=== PATIENT | female | born 1955 | race American Indian/Alaskan Native ===

== ENCOUNTER 2018-06-08 07:32 | Inpatient (IN) | payer MEDICARE ==
[2018-06-08] MEDS ORDERED: ASPIRIN PO ONE (07:50)
[2018-06-08 08:14] LABS: Basophils # (Auto) 0.1 K/mm3 (0.0-0.1); Basophils % (Auto) 0.8 % (0.0-1.8); Eosinophils # (Auto) 0.2 K/mm3 (0.0-0.4); Eosinophils % (Auto) 2.1 % (0.0-4.3); Hematocrit 29.2 % (30.3-42.9); Hemoglobin 9.2 gm/dl (10.1-14.3); Lymphocytes # (Auto) 2.9 K/mm3 (1.2-5.4); Lymphocytes % (Auto) 34.3 % (13.4-35.0); Mean Corpuscular HGB Conc 31 % (30-34); Mean Corpuscular Volume 77 fl (79-97); Monocytes # (Auto) 0.6 K/mm3 (0.0-0.8); Monocytes % (Auto) 6.6 % (0.0-7.3); Platelet Count 310 K/mm3 (140-440); Red Blood Count 3.78 M/mm3 (3.65-5.03); Red Cell Distribution Width 17.7 % (13.2-15.2)
[2018-06-08 08:30] LABS: BUN/Creatinine Ratio 22; Blood Urea Nitrogen 22 mg/dL (7-17); Calcium 9.1 mg/dL (8.4-10.2); Hemolysis Index 8
--- NOTE | 2018-06-08 09:00 | XRay Report ---
PROCEDURE: XR CHEST ROUTINE 2V TECHNIQUE: Chest, 2 views HISTORY: Chest Pain COMPARISON: None FINDINGS: There is moderate to marked cardiomegaly. There is no vascular congestion. There is some airspace disease in right lower lobe. There is no pleural effusion seen. There is no pneumothorax seen. IMPRESSION: Moderate to marked cardiomegaly. Right lower lobe infiltrate suspected. This document is electronically signed by Reina Garcia MD., June 08 2018 08:57:59 AM ET
--- NOTE | 2018-06-08 11:01 | Emergency Department Report ---
ED Chest Pain HPI - General Chief Complaint: Chest Pain Stated Complaint: CHEST PAIN/SOB Time Seen by Provider: 06/08/18 10:49 Source: patient Mode of arrival: Ambulatory Limitations: No Limitations - History of Present Illness Initial Comments: This is a 63-year-old female states she was admitted to every in April with a diagnosis of congestive heart failure. She states that she is taking lisinopril furosemide and carvedilol and that she has not run out of her medication. She states that she had intermittent tightness in her chest overnight. She also had episodes of apparent PND causing her to sit up in bed. She is recently noted her legs to be edematous. She states this is the first time that that has happened. She had a stress test at [facility] but denies a heart catheterization. MD Complaint: chest pain -: Gradual, hour(s) Onset: during exertion Pain Location: substernal, left chest Pain Radiation: back (somewhat to back) Severity: moderate Quality: pressure Consistency: intermittent, now resolved Improves With: nothing Worsens With: nothing Context: other (history of apparent cardiomyopathy) re: dyspnea Other Symptoms: denies: cough, fever, syncope Treatments Prior to Arrival: none Aspirin use within the Past 7 Days: (0) No - Related Data On Oral Contraceptives: No Allergies Allergy/AdvReac Type Severity Reaction Status Date / Time No Known Allergies Allergy Unverified 06/08/18 07:43 Heart Score - HEART Score History: Moderately suspicious EKG: Non-specific Age: 45-65 Risk factors: 1-2 risk factors Troponin: < normal limit HEART Score: 4 - Critical Actions Critical Actions: 4-6 pts:12-16.6% risk of adverse cardiac event. Should be admitted ED Review of Systems ROS: Stated complaint: CHEST PAIN/SOB Other details as noted in HPI Constitutional: denies: chills, fever Eyes: denies: eye pain, eye discharge, vision change ENT: denies: ear pain, throat pain Respiratory: shortness of breath. denies: cough, wheezing Cardiovascular: chest pain. denies: palpitations Endocrine: no symptoms reported Gastrointestinal: denies: abdominal pain, nausea, diarrhea Genitourinary: denies: urgency, dysuria, discharge Musculoskeletal: denies: back pain, joint swelling, arthralgia Skin: denies: rash, lesions Neurological: denies: headache, weakness, paresthesias Psychiatric: denies: anxiety, depression Hematological/Lymphatic: denies: easy bleeding, easy bruising ED Past Medical Hx - Past Medical History Previous Medical History?: Yes Hx Hypertension: Yes Hx Congestive Heart Failure: Yes - Surgical History Past Surgical History?: No - Social History Substance Use Type: None ED Physical Exam - General Limitations: No Limitations General appearance: alert, in no apparent distress, obese - Head Head exam: Present: atraumatic, normocephalic - Eye Eye exam: Present: normal appearance - ENT ENT exam: Present: mucous membranes moist - Neck Neck exam: Present: normal inspection. Absent: tenderness, meningismus - Respiratory Respiratory exam: Present: decreased breath sounds (somewhat decreased b ilaterally). Absent: respiratory distress - Cardiovascular Cardiovascular Exam: Present: regular rate, normal rhythm, S3, S4. Absent: systolic murmur, diastolic murmur, rubs, gallop - GI/Abdominal GI/Abdominal exam: Present: soft, normal bowel sounds. Absent: distended, tenderness, guarding, rebound, rigid - Extremities Exam Extremities exam: Present: pedal edema, other (physical edema) - Back Exam Back exam: Present: normal inspection - Neurological Exam Neurological exam: Present: alert, oriented X3, CN II-XII intact. Absent: motor sensory deficit - Psychiatric Psychiatric exam: Present: normal affect, normal mood - Skin Skin exam: Present: warm, dry, intact, normal color. Absent: rash ED Course Vital Signs 06/08/18 06/08/18 07:43 11:30 Temperature 98.0 F 98.5 F Pulse Rate 90 97 H Respiratory 18 18 Rate Blood Pressure 136/105 Blood Pressure 136/86 [Left] O2 Sat by Pulse 95 97 Oximetry - Reevaluation(s) Reevaluation #1: Discussed with Dr. Ryan. Patient is admitted to telemetry in stable condition. 06/08/18 12:53 DELORES score - Delores Score Age > 65: (0) No Aspirin use within the Past 7 Days: (0) No 3 or more CAD Risk Factors: (1) Yes 2 or more Angina events in past 24 hrs: (0) No Known CAD with more than 50% Stenosis: (0) No Elevated Cardiac Markers: (0) No ST Deviation Greater than 0.5mm: (0) No DELORES Score: 1 ED Medical Decision Making - Lab Data Result diagrams: 06/08/18 08:01 06/08/18 07:58 Laboratory Results - last 24 hr 06/08/18 06/08/18 07:58 08:01 WBC 8.4 RBC 3.78 Hgb 9.2 L Hct 29.2 L MCV 77 L MCH 24 L MCHC 31 RDW 17.7 H Plt Count 310 Lymph % (Auto) 34.3 White % (Auto) 6.6 Eos % (Auto) 2.1 Baso % (Auto) 0.8 Lymph # 2.9 White # 0.6 Eos # 0.2 Baso # 0.1 Seg Neutrophils % 56.2 Seg Neutrophils # 4.7 Sodium 142 Potassium 3.7 Chloride 104.7 Carbon Dioxide 28 Anion Gap 13 BUN 22 H Creatinine 1.0 Estimated GFR 56 BUN/Creatinine Ratio 22 Glucose 124 H Calcium 9.1 Troponin T < 0.010 - EKG Data -: EKG Interpreted by Me EKG shows normal: sinus rhythm, axis, intervals, QRS complexes, ST-T waves Rate: normal - EKG Data Interpretation: LVH (consistent with LVH and associated repolarization abnormality) - Radiology Data Radiology results: report reviewed (radiologist as suggesting right lower lobe pneumonia.) interpreted by me: Cardiomegaly. Patient does have an infiltrate in the right lower lobe but not convinced that it is just not asymmetrical pulmonary edema Critical care attestation.: If time is entered above; I have spent that time in minutes in the direct care of this critically ill patient, excluding procedure time. ED Disposition Clinical Impression: Chest pain Qualifiers: Chest pain type: unspecified Qualified Code(s): R07.9 - Chest pain, unspecified CHF exacerbation Qualifiers: Heart failure type: combined systolic and diastolic Qualified Code(s): I50.43 - Acute on chronic combined systolic (congestive) and diastolic (congestive) heart failure Disposition: - TO HOME OR SELFCARE Is pt being admited?: Yes Does the pt Need Aspirin: Yes Condition: Stable Instructions: Chest Pain (ED) Referrals: PRIMARY CARE, [Primary Care Provider] - 3-5 Days Time of Disposition: 12:55
[2018-06-08 11:27] LABS: INR 1.07 (0.87-1.13); Partial Thromboplastin Time 21.6 Sec. (24.2-36.6)
[2018-06-08] MEDS ORDERED: LASIX IV ONE (11:49)
[2018-06-08] MEDS ORDERED: ROCEPHIN/NS 1 GM/50 ML 1 GM/50 ML BAG IV ONE (11:49)
[2018-06-08] MEDS ORDERED: LEVAQUIN 750MG/150ML 750 MG/150 ML BAG IV ONE (11:49)
[2018-06-08 11:51] LABS: Creatine Kinase MB 4.8 ng/mL (0.0-4.0)
[2018-06-08 11:53] LABS: Alanine Aminotransferase 35 units/L (7-56); Albumin 3.6 g/dL (3.9-5)
[2018-06-08 11:56] LABS: Bilirubin,Direct < 0.2 mg/dL (0-0.2)
[2018-06-08] MEDS ORDERED: NITRO-BID 2% TP ONE (12:55)
[2018-06-08 13:50] LABS: Bacteria,Urine 1+ /HPF (Negative); Bilirubin,Urine NEG (Negative); Blood,Urine NEG (Negative); Color,Urine Yellow (Yellow); Mucus,Urine FEW /HPF; Urobilinogen,Urine < 2.0 mg/dL (<2.0)
[2018-06-08] MEDS ORDERED: ASPIRIN ONE (16:09)
--- NOTE | 2018-06-08 17:33 | History and Physical Report ---
History of Present Illness Date of examination: 06/08/18 Date of admission: 06/08/18 13:06 Chief complaint: CHEST PAIN SINCE LAST NIGHT History of present illness: 63-year-old female presents with intermittent tightness in her chest overnight. She also had episodes of apparent PND causing her to sit up in bed. She is recently noted her legs to be edematous. She states this is the first time that that has happened. She had a stress test at [facility] but denies a heart catheterization.Does not know the results of her stress marcelle.Also has orthopnea.Has to sleep with 2 pillows. Past Medical History Previous Medical History?: Yes Hx Hypertension: Yes Hx Congestive Heart Failure: Yes Surgical History Past Surgical History?: No Social History Substance Use Type: None Family History Htn Review of Systems ROS: Stated complaint: CHEST PAIN/SOB Other details as noted in HPI Constitutional: denies: chills, fever Eyes: denies: eye pain, eye discharge, vision change ENT: denies: ear pain, throat pain Respiratory: shortness of breath. denies: cough, wheezing Cardiovascular: chest pain. denies: palpitations Endocrine: no symptoms reported Gastrointestinal: denies: abdominal pain, nausea, diarrhea Genitourinary: denies: urgency, dysuria, discharge Musculoskeletal: denies: back pain, joint swelling, arthralgia Skin: denies: rash, lesions Neurological: denies: headache, weakness, paresthesias Psychiatric: denies: anxiety, depression Hematological/Lymphatic: denies: easy bleeding, easy bruising Medications and Allergies Allergies Allergy/AdvReac Type Severity Reaction Status Date / Time No Known Allergies Allergy Unverified 06/08/18 07:43 Exam - Constitutional Vitals: Temp Pulse Resp BP Pulse Ox 97.5 F L 97 H 21 138/96 96 06/08/18 16:21 06/08/18 16:21 06/08/18 16:21 06/08/18 16:21 06/08/18 16:21 General appearance: Present: no acute distress, mild distress, well-nourished - EENT Eyes: Present: PERRL ENT: hearing intact, clear oral mucosa - Neck Neck: Present: supple, normal ROM - Respiratory Respiratory effort: normal Respiratory: bilateral: CTA - Cardiovascular Heart rate: 94 Rhythm: regular Heart Sounds: Present: S1 & S2. Absent: rub, click - Extremities Extremities: no ischemia, pulses intact, pulses symmetrical, No edema Extremity abnormal: edema (1 plus) Peripheral Pulses: within normal limits - Abdominal General gastrointestinal: Present: soft, non-tender, non-distended, normal bowel sounds Female genitourinary: Present: normal - Rectal Rectal Exam: deferred - Integumentary Integumentary: Present: clear, warm, dry - Musculoskeletal Musculoskeletal: gait normal, strength equal bilaterally - Psychiatric Psychiatric: appropriate mood/affect, intact judgment & insight - Neurologic Neurologic: CNII-XII intact, moves all extremities - Allied Health Allied health notes reviewed: nursing, case management Results - Labs CBC & Chem 7: 06/08/18 08:01 06/08/18 07:58 Labs: Laboratory Last Values WBC 8.4 K/mm3 (4.5-11.0) 06/08/18 08:01 RBC 3.78 M/mm3 (3.65-5.03) 06/08/18 08:01 Hgb 9.2 gm/dl (10.1-14.3) L 06/08/18 08:01 Hct 29.2 % (30.3-42.9) L 06/08/18 08:01 MCV 77 fl (79-97) L 06/08/18 08:01 MCH 24 pg (28-32) L 06/08/18 08:01 MCHC 31 % (30-34) 06/08/18 08:01 RDW 17.7 % (13.2-15.2) H 06/08/18 08:01 Plt Count 310 K/mm3 (140-440) 06/08/18 08:01 Lymph % (Auto) 34.3 % (13.4-35.0) 06/08/18 08:01 [place] % (Auto) 6.6 % (0.0-7.3) 06/08/18 08:01 Eos % (Auto) 2.1 % (0.0-4.3) 06/08/18 08:01 Baso % (Auto) 0.8 % (0.0-1.8) 06/08/18 08:01 Lymph # 2.9 K/mm3 (1.2-5.4) 06/08/18 08:01 [place] # 0.6 K/mm3 (0.0-0.8) 06/08/18 08:01 Eos # 0.2 K/mm3 (0.0-0.4) 06/08/18 08:01 Baso # 0.1 K/mm3 (0.0-0.1) 06/08/18 08:01 Seg Neutrophils % 56.2 % (40.0-70.0) 06/08/18 08:01 Seg Neutrophils # 4.7 K/mm3 (1.8-7.7) 06/08/18 08:01 PT 14.6 Sec. (12.2-14.9) 06/08/18 10:56 INR 1.07 (0.87-1.13) 06/08/18 10:56 APTT 21.6 Sec. (24.2-36.6) L 06/08/18 10:56 D-Dimer 318.58 ng/mlDDU (0-234) H 06/08/18 10:56 Sodium 142 mmol/L (137-145) 06/08/18 07:58 Potassium 3.7 mmol/L (3.6-5.0) 06/08/18 07:58 Chloride 104.7 mmol/L (98-107) 06/08/18 07:58 Carbon Dioxide 28 mmol/L (22-30) 06/08/18 07:58 Anion Gap 13 mmol/L 06/08/18 07:58 BUN 22 mg/dL (7-17) H 06/08/18 07:58 Creatinine 1.0 mg/dL (0.7-1.2) 06/08/18 07:58 Estimated GFR 56 ml/min 06/08/18 07:58 BUN/Creatinine Ratio 22 % 06/08/18 07:58 Glucose 124 mg/dL (65-100) H 06/08/18 07:58 Lactic Acid 0.70 mmol/L (0.7-2.0) 06/08/18 12:14 Calcium 9.1 mg/dL (8.4-10.2) 06/08/18 07:58 Total Bilirubin 0.40 mg/dL (0.1-1.2) 06/08/18 10:56 Direct Bilirubin < 0.2 mg/dL (0-0.2) 06/08/18 10:56 Indirect Bilirubin 0.2 mg/dL 06/08/18 10:56 AST 40 units/L (5-40) 06/08/18 10:56 ALT 35 units/L (7-56) 06/08/18 10:56 Alkaline Phosphatase 50 units/L (35-129) 06/08/18 10:56 Total Creatine Kinase 224 units/L (30-135) H 06/08/18 10:56 CK-MB (CK-2) 4.8 ng/mL (0.0-4.0) H 06/08/18 10:56 CK-MB (CK-2) Rel Index 2.1 (0-4) 06/08/18 10:56 Troponin T < 0.010 ng/mL (0.00-0.029) 06/08/18 10:56 NT-Pro-B Natriuret Pep 2634 pg/mL (0-900) H 06/08/18 10:56 Total Protein 6.9 g/dL (6.3-8.2) 06/08/18 10:56 Albumin 3.6 g/dL (3.9-5) L 06/08/18 10:56 Albumin/Globulin Ratio 1.1 % 06/08/18 10:56 Urine Color Yellow (Yellow) 06/08/18 13:10 Urine Turbidity Clear (Clear) 06/08/18 13:10 Urine pH 6.0 (5.0-7.0) 06/08/18 13:10 Ur Specific [place] 1.012 (1.003-1.030) 06/08/18 13:10 Urine Protein 30 mg/dl mg/dL (Negative) 06/08/18 13:10 Urine Glucose (UA) Neg mg/dL (Negative) 06/08/18 13:10 Urine Ketones Neg mg/dL (Negative) 06/08/18 13:10 Urine Blood Neg (Negative) 06/08/18 13:10 Urine Nitrite Neg (Negative) 06/08/18 13:10 Urine Bilirubin Neg (Negative) 06/08/18 13:10 Urine Urobilinogen < 2.0 mg/dL (<2.0) 06/08/18 13:10 Ur Leukocyte Esterase Sm (Negative) 06/08/18 13:10 Urine WBC (Auto) 7.0 /HPF (0.0-6.0) H 06/08/18 13:10 Urine RBC (Auto) 4.0 /HPF (0.0-6.0) 06/08/18 13:10 U Epithel Cells (Auto) 1.0 /HPF (0-13.0) 06/08/18 13:10 Urine Bacteria (Auto) 1+ /HPF (Negative) 06/08/18 13:10 Urine Mucus Few /HPF 06/08/18 13:10 Urine Yeast (Budding) 1+ /HPF 06/08/18 13:10 Short CBC 06/08/18 Range/Units 08:01 WBC 8.4 (4.5-11.0) K/mm3 Hgb 9.2 L (10.1-14.3) gm/dl Hct 29.2 L (30.3-42.9) % Plt Count 310 (140-440) K/mm3 BMP 06/08/18 07:58 Sodium 142 Potassium 3.7 Chloride 104.7 Carbon Dioxide 28 BUN 22 H Creatinine 1.0 Glucose 124 H Calcium 9.1 Cardiac Enzymes 06/08/18 06/08/18 Range/Units 07:58 10:56 Total Creatine Kinase 224 H (30-135) units/L CK-MB (CK-2) 4.8 H (0.0-4.0) ng/mL Troponin T < 0.010 < 0.010 (0.00-0.029) ng/mL Liver Function 06/08/18 Range/Units 10:56 Total Bilirubin 0.40 (0.1-1.2) mg/dL Direct Bilirubin < 0.2 (0-0.2) mg/dL AST 40 (5-40) units/L ALT 35 (7-56) units/L Alkaline Phosphatase 50 (35-129) units/L Albumin 3.6 L (3.9-5) g/dL Urine 06/08/18 Range/Units 13:10 Urine Color Yellow (Yellow) Urine pH 6.0 (5.0-7.0) Ur Specific [place] 1.012 (1.003-1.030) Urine Protein 30 mg/dl (Negative) mg/dL Urine Glucose (UA) Neg (Negative) mg/dL - Imaging and Cardiology EKG: report reviewed (NSR 94/min No acute ST/T wave changes) Chest x-ray: report reviewed Imaging and Cardiology: CXR IMPRESSION: Moderate to marked cardiomegaly. Right lower lobe infiltrate suspected. Assessment and Plan Advance Directives: Yes (Full code) VTE prophylaxis?: Chemical Plan of care discussed with patient/family: Yes - Patient Problems (1) CHF exacerbation Current Visit: Yes Status: Acute Qualifiers: Heart failure type: combined systolic and diastolic Qualified Code(s): I50.43 - Acute on chronic combined systolic (congestive) and diastolic (congesti ve) heart failure Plan to address problem: IV Lasis ECHO for EF/Valve function Daily weights I/o (2) Chest pain Current Visit: Yes Status: Acute Qualifiers: Chest pain type: unspecified Qualified Code(s): R07.9 - Chest pain, unspecified Plan to address problem: Chest pain protocol Serial Troponins Lexiscan on Sunday morning (3) Pneumonia Current Visit: Yes Status: Acute Qualifiers: Laterality: right Lung location: lower lobe of lung Plan to address problem: IV Levaquin for now (4) DVT prophylaxis Current Visit: Yes Status: Acute Plan to address problem: On Lovenox and GI prophylaxis (5) HTN (hypertension) Current Visit: Yes Status: Chronic Qualifiers: Hypertension type: essential hypertension Qualified Code(s): I10 - Essential (primary) hypertension Plan to address problem: Add Losartan 100 mg po qd
[2018-06-08] MEDS ORDERED: DILAUDID IV PRN (17:34)
[2018-06-08] MEDS ORDERED: TYLENOL PO PRN (17:34)
[2018-06-08] MEDS ORDERED: PERCOCET 5/325 PO PRN (17:34)
[2018-06-08] MEDS ORDERED: SODIUM CHLORIDE FLUSH SYRINGE 10 ML IV PRN (17:34)
[2018-06-08] MEDS ORDERED: ZOFRAN IV PRN (17:34)
[2018-06-08] MEDS: PEPCID PO SCH (21:20)
[2018-06-08] MEDS ORDERED: SODIUM CHLORIDE FLUSH SYRINGE 10 ML IV SCH (22:00)
[2018-06-09] MEDS: LASIX IV SCH (03:23)
[2018-06-09] MEDS ORDERED: SODIUM CHLORIDE FLUSH SYRINGE 10 ML IV PRN (06:17)
[2018-06-09] MEDS ORDERED: TYLENOL PO PRN (06:17)
[2018-06-09] MEDS ORDERED: ZOFRAN IV PRN (06:17)
--- NOTE | 2018-06-09 09:50 | Progress Note ---
Assessment and Plan Assessment and plan: --Congestive heart failure ; probably systolic dysfunction Unknown ejection fraction , diuretics , beta blockers , shelton inhibitors Echocardiogram for LV function ejection fraction Cardiology evaluation if needed --Chest pain : Mild improvement Cardiac enzymes negative, serial EKGs Echocardiogram for LV function and ejection fraction Aspirin, beta blockers, shelton inhibitors, nitrates, statins Lexiscan stress test tomorrow Cardiology evaluation if needed --Possible pneumonia/community-acquired IV Levaquin , follow cultures, supportive care --Hypertension; moderate control Beta blockers, shelton inhibitors, hydralazine when necessary --Obesity; BMI 33.7, Advised weight reduction and medically stable --DVT prophylaxis; Lovenox History Interval history: Patient seen and examined medical records reviewed Admitted with chest pain and worsening shortness of breath Symptoms slightly improved Alert awake oriented 3 Vital signs noted Hospitalist Physical - Constitutional Vitals: Temp Pulse Resp BP Pulse Ox 98.3 F 102 H 16 146/99 94 06/09/18 08:09 06/09/18 08:09 06/09/18 08:09 06/09/18 08:09 06/09/18 08:09 General appearance: Present: no acute distress, mild distress, well-nourished - EENT Eyes: Present: PERRL, EOM intact - Neck Neck: Present: supple, normal ROM - Respiratory Respiratory effort: normal Respiratory: bilateral: diminished, rales, negative: rhonchi, wheezing - Cardiovascular Rhythm: regular Heart Sounds: Present: S1 & S2 - Extremities Extremities: no ischemia, No edema - Abdominal General gastrointestinal: soft, non-tender, non-distended, normal bowel sounds - Integumentary Integumentary: Present: clear, warm - Psychiatric Psychiatric: appropriate mood/affect, cooperative - Neurologic Neurologic: CNII-XII intact, moves all extremities Results - Labs CBC & Chem 7: 06/09/18 09:38 06/09/18 09:38 Labs: Laboratory Last Values WBC 8.4 K/mm3 (4.5-11.0) 06/08/18 08:01 RBC 3.78 M/mm3 (3.65-5.03) 06/08/18 08:01 Hgb 9.2 gm/dl (10.1-14.3) L 06/08/18 08:01 Hct 29.2 % (30.3-42.9) L 06/08/18 08:01 MCV 77 fl (79-97) L 06/08/18 08:01 MCH 24 pg (28-32) L 06/08/18 08:01 MCHC 31 % (30-34) 06/08/18 08:01 RDW 17.7 % (13.2-15.2) H 06/08/18 08:01 Plt Count 310 K/mm3 (140-440) 06/08/18 08:01 Lymph % (Auto) 34.3 % (13.4-35.0) 06/08/18 08:01 [place] % (Auto) 6.6 % (0.0-7.3) 06/08/18 08:01 Eos % (Auto) 2.1 % (0.0-4.3) 06/08/18 08:01 Baso % (Auto) 0.8 % (0.0-1.8) 06/08/18 08:01 Lymph # 2.9 K/mm3 (1.2-5.4) 06/08/18 08:01 [place] # 0.6 K/mm3 (0.0-0.8) 06/08/18 08:01 Eos # 0.2 K/mm3 (0.0-0.4) 06/08/18 08:01 Baso # 0.1 K/mm3 (0.0-0.1) 06/08/18 08:01 Seg Neutrophils % 56.2 % (40.0-70.0) 06/08/18 08:01 Seg Neutrophils # 4.7 K/mm3 (1.8-7.7) 06/08/18 08:01 PT 14.6 Sec. (12.2-14.9) 06/08/18 10:56 INR 1.07 (0.87-1.13) 06/08/18 10:56 APTT 21.6 Sec. (24.2-36.6) L 06/08/18 10:56 D-Dimer 318.58 ng/mlDDU (0-234) H 06/08/18 10:56 Sodium 142 mmol/L (137-145) 06/08/18 07:58 Potassium 3.7 mmol/L (3.6-5.0) 06/08/18 07:58 Chloride 104.7 mmol/L (98-107) 06/08/18 07:58 Carbon Dioxide 28 mmol/L (22-30) 06/08/18 07:58 Anion Gap 13 mmol/L 06/08/18 07:58 BUN 22 mg/dL (7-17) H 06/08/18 07:58 Creatinine 1.0 mg/dL (0.7-1.2) 06/08/18 07:58 Estimated GFR 56 ml/min 06/08/18 07:58 BUN/Creatinine Ratio 22 % 06/08/18 07:58 Glucose 124 mg/dL (65-100) H 06/08/18 07:58 Lactic Acid 0.70 mmol/L (0.7-2.0) 06/08/18 12:14 Calcium 9.1 mg/dL (8.4-10.2) 06/08/18 07:58 Total Bilirubin 0.40 mg/dL (0.1-1.2) 06/08/18 10:56 Direct Bilirubin < 0.2 mg/dL (0-0.2) 06/08/18 10:56 Indirect Bilirubin 0.2 mg/dL 06/08/18 10:56 AST 40 units/L (5-40) 06/08/18 10:56 ALT 35 units/L (7-56) 06/08/18 10:56 Alkaline Phosphatase 50 units/L (35-129) 06/08/18 10:56 Total Creatine Kinase 224 units/L (30-135) H 06/08/18 10:56 CK-MB (CK-2) 4.8 ng/mL (0.0-4.0) H 06/08/18 10:56 CK-MB (CK-2) Rel Index 2.1 (0-4) 06/08/18 10:56 Troponin T < 0.010 ng/mL (0.00-0.029) 06/08/18 10:56 NT-Pro-B Natriuret Pep 2634 pg/mL (0-900) H 06/08/18 10:56 Total Protein 6.9 g/dL (6.3-8.2) 06/08/18 10:56 Albumin 3.6 g/dL (3.9-5) L 06/08/18 10:56 Albumin/Globulin Ratio 1.1 % 06/08/18 10:56 Urine Color Yellow (Yellow) 06/08/18 13:10 Urine Turbidity Clear (Clear) 06/08/18 13:10 Urine pH 6.0 (5.0-7.0) 06/08/18 13:10 Ur Specific [place] 1.012 (1.003-1.030) 06/08/18 13:10 Urine Protein 30 mg/dl mg/dL (Negative) 06/08/18 13:10 Urine Glucose (UA) Neg mg/dL (Negative) 06/08/18 13:10 Urine Ketones Neg mg/dL (Negative) 06/08/18 13:10 Urine Blood Neg (Negative) 06/08/18 13:10 Urine Nitrite Neg (Negative) 06/08/18 13:10 Urine Bilirubin Neg (Negative) 06/08/18 13:10 Urine Urobilinogen < 2.0 mg/dL (<2.0) 06/08/18 13:10 Ur Leukocyte Esterase Sm (Negative) 06/08/18 13:10 Urine WBC (Auto) 7.0 /HPF (0.0-6.0) H 06/08/18 13:10 Urine RBC (Auto) 4.0 /HPF (0.0-6.0) 06/08/18 13:10 U Epithel Cells (Auto) 1.0 /HPF (0-13.0) 06/08/18 13:10 Urine Bacteria (Auto) 1+ /HPF (Negative) 06/08/18 13:10 Urine Mucus Few /HPF 06/08/18 13:10 Urine Yeast (Budding) 1+ /HPF 06/08/18 13:10 Active Medications - Current Medications Current Medications: Generic Name Dose Route Start Last Admin Trade Name Freq PRN Reason Stop Dose Admin Acetaminophen 650 mg 06/09/18 06:17 Tylenol PO Q4H PRN Pain MILD(1-3)/Fever >100.5/MERA Famotidine 20 mg 06/08/18 22:00 06/08/18 21:20 Pepcid PO 20 mg BID TERESA Administration Furosemide 40 mg 06/09/18 03:14 06/09/18 03:23 Lasix IV 40 mg QDAY@0600 TERESA Administration Hydromorphone HCl 0.5 mg 06/08/18 17:34 Dilaudid IV Q3H PRN Pain , Severe (7-10) Levofloxacin/Dextrose 750 mg in 150 mls @ 100 mls/hr 06/09/18 10:00 Levaquin 750mg/150ml IV Q24HR TERESA Protocol Losartan Potassium 100 mg 06/09/18 10:00 Cozaar PO QDAY TERESA Ondansetron HCl 4 mg 06/09/18 06:17 Zofran IV Q8H PRN Nausea And Vomiting Oxycodone/Acetaminophen 1 tab 06/08/18 17:34 Percocet 5/325 PO Q6H PRN Pain, Moderate (4-6) Potassium Chloride 20 meq 06/09/18 10:00 K-Dur PO QDAY [facility] Sodium Chloride 10 ml 06/09/18 10:00 Sodium Chloride Flush Syringe 10 Ml IV BID TERESA Sodium Chloride 10 ml 06/09/18 06:17 Sodium Chloride Flush Syringe 10 Ml IV PRN PRN LINE FLUSH
[2018-06-09] MEDS: SODIUM CHLORIDE FLUSH SYRINGE 10 ML IV SCH ×2 (10:00→22:34)
[2018-06-09 10:13] LABS: Alanine Aminotransferase 31 units/L (7-56); Albumin 3.6 g/dL (3.9-5); BUN/Creatinine Ratio 18; Blood Urea Nitrogen 18 mg/dL (7-17); Calcium 9.1 mg/dL (8.4-10.2); Hemolysis Index 2
[2018-06-09 10:23] LABS: Basophils # (Auto) 0.1 K/mm3 (0.0-0.1); Basophils % (Auto) 0.7 % (0.0-1.8); Eosinophils # (Auto) 0.1 K/mm3 (0.0-0.4); Eosinophils % (Auto) 1.1 % (0.0-4.3); Hematocrit 29.5 % (30.3-42.9); Hemoglobin 9.3 gm/dl (10.1-14.3); Lymphocytes # (Auto) 2.5 K/mm3 (1.2-5.4); Lymphocytes % (Auto) 34.5 % (13.4-35.0); Mean Corpuscular HGB Conc 31 % (30-34); Mean Corpuscular Volume 78 fl (79-97); Monocytes # (Auto) 0.5 K/mm3 (0.0-0.8); Monocytes % (Auto) 7.3 % (0.0-7.3); Platelet Count 298 K/mm3 (140-440); Red Blood Count 3.78 M/mm3 (3.65-5.03)
[2018-06-09] MEDS: K-DUR PO SCH (10:39)
[2018-06-09] MEDS: PEPCID PO SCH ×2 (10:39→22:28)
[2018-06-09] MEDS: COZAAR PO SCH (10:39)
[2018-06-09] MEDS: LEVAQUIN 750MG/150ML 750 MG/150 ML BAG IV SCH (10:40)
[2018-06-09] MEDS ORDERED: LOVENOX SUB-Q SCH (22:00)
[2018-06-09] MEDS: COREG PO SCH (22:28)
[2018-06-10] MEDS: LASIX IV SCH (05:33)
[2018-06-10 08:23] LABS: BUN/Creatinine Ratio 18; Blood Urea Nitrogen 18 mg/dL (7-17); Calcium 9.3 mg/dL (8.4-10.2); HDL Cholesterol 29 mg/dL (40-59); Hemolysis Index 0; LDL Cholesterol,Direct 80 mg/dL (50-130)
[2018-06-10 08:59] LABS: Chol/HDL Ratio 3.68 %
--- NOTE | 2018-06-10 12:37 | Progress Note ---
Assessment and Plan Assessment and plan: --Congestive heart failure ; probably systolic dysfunction Unknown ejection fraction , diuretics , beta blockers , shelton inhibitors Echocardiogram for LV function ejection fraction Cardiology evaluation if needed --Chest pain : Mild improvement Cardiac enzymes negative, serial EKGs Echocardiogram for LV function and ejection fraction Aspirin, beta blockers, shelton inhibitors, nitrates, statins Lexiscan stress test tomorrow Cardiology evaluation if needed --Possible pneumonia/community-acquired IV Levaquin , follow cultures, supportive care --Hypertension; moderate control Beta blockers, shelton inhibitors, hydralazine when necessary --Obesity; BMI 33.7, Advised weight reduction and medically stable --DVT prophylaxis; [facility] Hospitalist Physical - Constitutional Vitals: Temp Pulse Resp BP Pulse Ox 98.0 F 100 H 20 159/100 88 06/10/18 12:09 06/10/18 12:09 06/10/18 12:09 06/10/18 12:09 06/10/18 12:09 General appearance: Present: no acute distress, mild distress, well-nourished Results - Labs CBC & Chem 7: 06/09/18 09:38 06/10/18 07:40 Labs: Laboratory Last Values WBC 7.2 K/mm3 (4.5-11.0) 06/09/18 09:38 RBC 3.78 M/mm3 (3.65-5.03) 06/09/18 09:38 Hgb 9.3 gm/dl (10.1-14.3) L 06/09/18 09:38 Hct 29.5 % (30.3-42.9) L 06/09/18 09:38 MCV 78 fl (79-97) L 06/09/18 09:38 MCH 25 pg (28-32) L 06/09/18 09:38 MCHC 31 % (30-34) 06/09/18 09:38 RDW 17.0 % (13.2-15.2) H 06/09/18 09:38 Plt Count 298 K/mm3 (140-440) 06/09/18 09:38 Lymph % (Auto) 34.5 % (13.4-35.0) 06/09/18 09:38 [place] % (Auto) 7.3 % (0.0-7.3) 06/09/18 09:38 Eos % (Auto) 1.1 % (0.0-4.3) 06/09/18 09:38 Baso % (Auto) 0.7 % (0.0-1.8) 06/09/18 09:38 Lymph # 2.5 K/mm3 (1.2-5.4) 06/09/18 09:38 [place] # 0.5 K/mm3 (0.0-0.8) 06/09/18 09:38 Eos # 0.1 K/mm3 (0.0-0.4) 06/09/18 09:38 Baso # 0.1 K/mm3 (0.0-0.1) 06/09/18 09:38 Seg Neutrophils % 56.4 % (40.0-70.0) 06/09/18 09:38 Seg Neutrophils # 4.1 K/mm3 (1.8-7.7) 06/09/18 09:38 PT 14.6 Sec. (12.2-14.9) 06/08/18 10:56 INR 1.07 (0.87-1.13) 06/08/18 10:56 APTT 21.6 Sec. (24.2-36.6) L 06/08/18 10:56 D-Dimer 318.58 ng/mlDDU (0-234) H 06/08/18 10:56 Sodium 146 mmol/L (137-145) H 06/10/18 07:40 Potassium 3.8 mmol/L (3.6-5.0) 06/10/18 07:40 Chloride 106.1 mmol/L (98-107) 06/10/18 07:40 Carbon Dioxide 32 mmol/L (22-30) H 06/10/18 07:40 Anion Gap 12 mmol/L 06/10/18 07:40 BUN 18 mg/dL (7-17) H 06/10/18 07:40 Creatinine 1.0 mg/dL (0.7-1.2) 06/10/18 07:40 Estimated GFR > 60 ml/min 06/10/18 07:40 BUN/Creatinine Ratio 18 % 06/10/18 07:40 Glucose 119 mg/dL (65-100) H 06/10/18 07:40 Hemoglobin A1c 6.0 % (4-6) 06/10/18 07:40 Lactic Acid 0.70 mmol/L (0.7-2.0) 06/08/18 12:14 Calcium 9.3 mg/dL (8.4-10.2) 06/10/18 07:40 Magnesium 1.90 mg/dL (1.7-2.3) 06/09/18 09:38 Total Bilirubin 0.50 mg/dL (0.1-1.2) 06/09/18 09:38 Direct Bilirubin < 0.2 mg/dL (0-0.2) 06/08/18 10:56 Indirect Bilirubin 0.2 mg/dL 06/08/18 10:56 AST 36 units/L (5-40) 06/09/18 09:38 ALT 31 units/L (7-56) 06/09/18 09:38 Alkaline Phosphatase 45 units/L (35-129) 06/09/18 09:38 Total Creatine Kinase 224 units/L (30-135) H 06/08/18 10:56 CK-MB (CK-2) 4.8 ng/mL (0.0-4.0) H 06/08/18 10:56 CK-MB (CK-2) Rel Index 2.1 (0-4) 06/08/18 10:56 Troponin T < 0.010 ng/mL (0.00-0.029) 06/08/18 10:56 NT-Pro-B Natriuret Pep 2634 pg/mL (0-900) H 06/08/18 10:56 Total Protein 6.7 g/dL (6.3-8.2) 06/09/18 09:38 Albumin 3.6 g/dL (3.9-5) L 06/09/18 09:38 Albumin/Globulin Ratio 1.2 % 06/09/18 09:38 Triglycerides 45 mg/dL (2-149) 06/10/18 07:40 Cholesterol 107 mg/dL (50-199) 06/10/18 07:40 LDL Cholesterol Direct 80 mg/dL (50-130) 06/10/18 07:40 HDL Cholesterol 29 mg/dL (40-59) L 06/10/18 07:40 Cholesterol/HDL Ratio 3.68 % 06/10/18 07:40 Urine Color Yellow (Yellow) 06/08/18 13:10 Urine Turbidity Clear (Clear) 06/08/18 13:10 Urine pH 6.0 (5.0-7.0) 06/08/18 13:10 Ur Specific [place] 1.012 (1.003-1.030) 06/08/18 13:10 Urine Protein 30 mg/dl mg/dL (Negative) 06/08/18 13:10 Urine Glucose (UA) Neg mg/dL (Negative) 06/08/18 13:10 Urine Ketones Neg mg/dL (Negative) 06/08/18 13:10 Urine Blood Neg (Negative) 06/08/18 13:10 Urine Nitrite Neg (Negative) 06/08/18 13:10 Urine Bilirubin Neg (Negative) 06/08/18 13:10 Urine Urobilinogen < 2.0 mg/dL (<2.0) 06/08/18 13:10 Ur Leukocyte Esterase Sm (Negative) 06/08/18 13:10 Urine WBC (Auto) 7.0 /HPF (0.0-6.0) H 06/08/18 13:10 Urine RBC (Auto) 4.0 /HPF (0.0-6.0) 06/08/18 13:10 U Epithel Cells (Auto) 1.0 /HPF (0-13.0) 06/08/18 13:10 Urine Bacteria (Auto) 1+ /HPF (Negative) 06/08/18 13:10 Urine Mucus Few /HPF 06/08/18 13:10 Urine Yeast (Budding) 1+ /HPF 06/08/18 13:10 Active Medications - Current Medications Current Medications: Generic Name Dose Route Start Last Admin Trade Name Freq PRN Reason Stop Dose Admin Acetaminophen 650 mg 06/09/18 06:17 Tylenol PO Q4H PRN Pain MILD(1-3)/Fever >100.5/MERA Atorvastatin Calcium 40 mg 06/09/18 22:00 06/09/18 22:28 Lipitor PO 40 mg QHS TERESA Administration Carvedilol 6.25 mg 06/09/18 22:00 06/09/18 22:28 Coreg PO 6.25 mg BID TERESA Administration Enoxaparin Sodium 40 mg 06/09/18 22:00 06/09/18 22:29 Lovenox SUB-Q 40 mg QDAY@2200 [facility] Administration Famotidine 20 mg 06/08/18 22:00 06/09/18 22:28 Pepcid PO 20 mg BID TERESA Administration Furosemide 40 mg 06/09/18 03:14 06/10/18 05:33 Lasix IV 40 mg QDAY@0600 TERESA Administration Hydromorphone HCl 0.5 mg 06/08/18 17:34 Dilaudid IV Q3H PRN Pain , Severe (7-10) Levofloxacin/Dextrose 750 mg in 150 mls @ 100 mls/hr 06/09/18 10:00 06/09/18 10:40 Levaquin 750mg/150ml IV 100 mls/hr Q24HR TERESA Administration Protocol Losartan Potassium 100 mg 06/09/18 10:00 06/09/18 10:39 Cozaar PO 100 mg QDAY TERESA Administration Ondansetron HCl 4 mg 06/09/18 06:17 Zofran IV Q8H PRN Nausea And Vomiting Oxycodone/Acetaminophen 1 tab 06/08/18 17:34 Percocet 5/325 PO Q6H PRN Pain, Moderate (4-6) Potassium Chloride 20 meq 06/09/18 10:00 06/09/18 10:39 K-Dur PO 20 meq QDAY TERESA Administration Sodium Chloride 10 ml 06/09/18 10:00 06/09/18 22:34 Sodium Chloride Flush Syringe 10 Ml IV Not Given BID TERESA Sodium Chloride 10 ml 06/09/18 06:17 Sodium Chloride Flush Syringe 10 Ml IV PRN PRN LINE FLUSH
[2018-06-10] MEDS: LEVAQUIN 750MG/150ML 750 MG/150 ML BAG IV SCH (14:03)
[2018-06-10] MEDS: K-DUR PO SCH (14:03)
[2018-06-10] MEDS: COREG PO SCH (14:03)
[2018-06-10] MEDS: COZAAR PO SCH (14:03)
[2018-06-10] MEDS: PEPCID PO SCH (14:04)
[2018-06-10] MEDS: SODIUM CHLORIDE FLUSH SYRINGE 10 ML IV SCH (14:04)
[2018-06-10 16:02] VITALS: BP 136/87
--- NOTE | 2018-06-10 18:45 | Discharge Summary ---
Providers - Providers Date of Admission: 06/08/18 13:06 Date of discharge: 06/10/18 Attending physician: SEKOU FRANCO Primary care physician: WINDOW CASER Hospitalization Reason for admission: worsening shortness of breath Condition: Stable Pertinent studies: CXR : cardiomegaly,possible Rt lowerlobe infiltrate Hospital course: 63-year-old female presents with intermittent tightness in her chest overnight. She also had episodes of orthopnea and PND. She had a stress test at [place] but denies a heart catheterization.Does not know the results of her stress test. Patient was symptomatically managed,Stress test was cancelled by cardiology as pt had stress test recently at a diff facility. Today patient feels better,no new complaints,vital signs stable. Discharge home,adv to f/u PMD and cardiology per schedule Discharge Diagnosis: --Acute on Chronic systolic CHF, EF 15-20% ; continue diuretics , beta blockers , shelton inhibitors Echocardiogram ,Cardiology evaluation if needed --Chest pain : Mild improvement Cardiac enzymes negative, serial EKGs Aspirin, beta blockers, shelton inhibitors, nitrates, statins Patient had recent Lexiscan stress test in a diff hospital --Possible pneumonia/community-acquired IV Levaquin , follow cultures, supportive care --Hypertension; moderate control Beta blockers, shelton inhibitors, hydralazine when necessary --Obesity; BMI 33.7, Advised weight reduction and medically stable --DVT prophylaxis; Lovenox Disposition: TO HOME OR SELFCARE Time spent for discharge: 32 min Core Measure Documentation - Palliative Care Palliative Care/ Comfort Measures: Not Applicable - Core Measures Any of the following diagnoses?: heart failure, none - Heart Failure Discharge Requirements SHELTON/ARB for LVSD if EF <40%: Yes Beta jameson at discharge: Yes Exam - Constitutional Vitals: Temp Pulse Resp BP Pulse Ox 98.2 F 100 H 20 136/87 88 06/10/18 15:30 06/10/18 15:30 06/10/18 15:30 06/10/18 15:30 06/10/18 12:09 General appearance: Present: no acute distress, well-nourished - EENT Eyes: Present: PERRL, EOM intact - Neck Neck: Present: supple, normal ROM - Respiratory Respiratory effort: normal Respiratory: bilateral: diminished, negative: rales, rhonchi, wheezing - Cardiovascular Rhythm: regular Heart Sounds: Present: S1 & S2 - Extremities Extremities: no ischemia, No edema - Abdominal General gastrointestinal: Present: soft, non-tender, non-distended, normal bowel sounds - Integumentary Integumentary: Present: clear, warm - Musculoskeletal Musculoskeletal: strength equal bilaterally - Psychiatric Psychiatric: appropriate mood/affect, cooperative - Neurologic Neurologic: CNII-XII intact, moves all extremities Plan Activity: no restrictions Diet: other (cardiac diet) Additional Instructions: Follow-up private [facility] surgeon in 1 week. If you have persistent chest pain or shortness of breath, contact M.D. or go to emergency room. No new Prescriptions, advised to continue all current medications as before Follow up with: PRIMARY CARE, [Primary Care Provider] - 3-5 Days
== END 2018-06-10 20:43 | disposition home or self-care (01) | DRG 291 ==
LOC: ED 07:32 → 4A 13:06
PROVIDERS: ADMIT Internal Medicine; ATTEND Internal Medicine
DX: I11.0 Hypertensive heart disease with heart failure (principal); J18.1 Lobar pneumonia, unspecified organism; I50.43 Acute on chronic combined systolic (congestive) and diastolic (congestive) heart failure; E66.9 Obesity, unspecified; Z68.37 Body mass index [BMI] 37.0-37.9, adult; Z71.3 Dietary counseling and surveillance; Z82.49 Family history of ischemic heart disease and other diseases of the circulatory system
CPT/HCPCS: 36415; 71046; 80048; 80053; 80061; 80076; 81001; 82140; 82550; 82553; 82962; 83036; 83735; 83880; 84484; 85025; 85379; 85610; 85730; 87040; 93005; 93010; G0378; A9270-GY; J0696; J1650; J1940; J1956

== ENCOUNTER 2018-06-19 05:57 | Inpatient (IN) | payer MEDICARE ==
[2018-06-19] MEDS ORDERED: BABY ASPIRIN PO ONE (11:43)
--- NOTE | 2018-06-19 12:03 | XRay Report ---
AP CHEST: HISTORY: chest pain There is moderate cardiomegaly which appears stable since 06/08/18. The pulmonary vessels are borderline. The lungs are clear. No evidence for pneumonia, CHF or pneumothorax. IMPRESSION: Stable moderate cardiomegaly.
[2018-06-19] MEDS ORDERED: NITRO-BID 2% TP ONE (12:09)
--- NOTE | 2018-06-19 12:09 | Emergency Department Report ---
ED Chest Pain HPI - General Chief Complaint: Chest Pain Stated Complaint: SOB CHEST PAINS Time Seen by Provider: 06/19/18 11:11 Source: patient Mode of arrival: Ambulatory Limitations: No Limitations - History of Present Illness Initial Comments: Patient presents to emergency department with chief complaint of chest pain that started at 11 PM last night. She describes it as pressure-like and located in the center of her chest radiation to the left forearm. Patient denies any shortness of breath, abdominal pain, headache. Patient states she had a normal stress test in December at [facility]. Patient complains of true shortness of breath with any exertion and states she feels like she is in a CHF exacerbation -: Sudden Onset: during rest Pain Location: substernal Pain Radiation: LUE Severity: moderate Severity scale (0 -10): 6 Quality: tightness, pressure Consistency: constant Improves With: nothing Worsens With: nothing re: denies: nausea, vomting Treatments Prior to Arrival: none - Related Data Home Medications Medication Instructions Recorded Confirmed Last Taken Aspirin [Adult Aspirin] 81 mg PO DAILY 06/19/18 06/19/18 Unknown AtorvaSTATin [Lipitor] 20 mg PO DAILY 06/19/18 06/19/18 Unknown Carvedilol [Coreg] 6.25 mg PO BID 06/19/18 06/19/18 Unknown Furosemide [Lasix TAB] 40 mg PO BID 06/19/18 06/19/18 Unknown Lisinopril [Zestril] 20 mg PO QDAY 06/19/18 06/19/18 Unknown Allergies Allergy/AdvReac Type Severity Reaction Status Date / Time No Known Allergies Allergy Unverified 06/08/18 07:43 Heart Score - HEART Score History: Slightly suspicious EKG: Significant ST-depression Age: 45-65 Risk factors: 1-2 risk factors Troponin: 1-3x normal limit HEART Score: 5 - Critical Actions Critical Actions: 0-3 pts:0.9-1.7%risk of adverse cardiac event.Candidate for discharge ED Review of Systems ROS: Stated complaint: SOB CHEST PAINS Other details as noted in HPI Constitutional: denies: chills, fever Eyes: denies: eye pain, eye discharge, vision change ENT: denies: ear pain, throat pain Respiratory: denies: cough, shortness of breath, wheezing Cardiovascular: chest pain. denies: palpitations Endocrine: no symptoms reported Gastrointestinal: denies: abdominal pain, nausea, diarrhea Genitourinary: denies: urgency, dysuria, discharge Musculoskeletal: denies: back pain, joint swelling, arthralgia Skin: denies: rash, lesions Neurological: denies: headache, weakness, paresthesias Psychiatric: denies: anxiety, depression Hematological/Lymphatic: denies: easy bleeding, easy bruising ED Past Medical Hx - Past Medical History Previous Medical History?: Yes Hx Hypertension: Yes Hx Congestive Heart Failure: Yes - Surgical History Past Surgical History?: No - Social History Smoking Status: Never Smoker - Medications Home Medications: Home Medications Medication Instructions Recorded Confirmed Last Taken Type Aspirin [Adult Aspirin] 81 mg PO DAILY 06/19/18 06/19/18 Unknown History AtorvaSTATin [Lipitor] 20 mg PO DAILY 06/19/18 06/19/18 Unknown History Carvedilol [Coreg] 6.25 mg PO BID 06/19/18 06/19/18 Unknown History Furosemide [Lasix TAB] 40 mg PO BID 06/19/18 06/19/18 Unknown History Lisinopril [Zestril] 20 mg PO QDAY 06/19/18 06/19/18 Unknown History ED Physical Exam - General Limitations: No Limitations General appearance: alert, in no apparent distress - Head Head exam: Present: atraumatic, normocephalic - Eye Eye exam: Present: normal appearance, PERRL, EOMI - ENT ENT exam: Present: mucous membranes moist - Neck Neck exam: Present: normal inspection - Respiratory Respiratory exam: Present: normal lung sounds bilaterally, rales. Absent: respiratory distress, wheezes - Cardiovascular Cardiovascular Exam: Present: regular rate, normal rhythm. Absent: systolic murmur, diastolic murmur, rubs, gallop - GI/Abdominal GI/Abdominal exam: Present: soft, normal bowel sounds. Absent: distended, ten derness - Extremities Exam Extremities exam: Present: normal inspection, other (pitting edema) - Back Exam Back exam: Present: normal inspection - Neurological Exam Neurological exam: Present: alert, oriented X3, CN II-XII intact. Absent: motor sensory deficit - Psychiatric Psychiatric exam: Present: normal affect, normal mood - Skin Skin exam: Present: warm, dry, intact, normal color. Absent: rash ED Course Vital Signs 06/19/18 06/19/18 06/19/18 12:30 13:24 14:29 Pulse Rate 101 H 102 H Respiratory 15 Rate Blood Pressure 130/93 Blood Pressure 140/93 [Right] O2 Sat by Pulse 100 100 Oximetry GREGORY score - Gregory Score Age > 65: (0) No Aspirin use within the Past 7 Days: (0) No 3 or more CAD Risk Factors: (0) No 2 or more Angina events in past 24 hrs: (0) No Known CAD with more than 50% Stenosis: (0) No Elevated Cardiac Markers: (0) No ST Deviation Greater than 0.5mm: (0) No GREGORY Score: 0 ED Medical Decision Making - Lab Data Result diagrams: 06/19/18 11:58 06/19/18 11:58 Lab Results 06/19/18 06/19/18 06/19/18 Range/Units 11:58 11:58 11:58 WBC 8.0 (4.5-11.0) K/mm3 RBC 4.10 (3.65-5.03) M/mm3 Hgb 9.9 L (10.1-14.3) gm/dl Hct 31.5 (30.3-42.9) % MCV 77 L (79-97) fl MCH 24 L (28-32) pg MCHC 31 (30-34) % RDW 17.6 H (13.2-15.2) % Plt Count 330 (140-440) K/mm3 Lymph % (Auto) 42.1 H (13.4-35.0) % [place] % (Auto) 8.6 H (0.0-7.3) % Eos % (Auto) 1.6 (0.0-4.3) % Baso % (Auto) 0.7 (0.0-1.8) % Lymph # 3.4 (1.2-5.4) K/mm3 [place] # 0.7 (0.0-0.8) K/mm3 Eos # 0.1 (0.0-0.4) K/mm3 Baso # 0.1 (0.0-0.1) K/mm3 Seg Neutrophils % 47.0 (40.0-70.0) % Seg Neutrophils # 3.8 (1.8-7.7) K/mm3 PT 14.6 (12.2-14.9) Sec. INR 1.07 (0.87-1.13) APTT 26.4 (24.2-36.6) Sec. Sodium 145 (137-145) mmol/L Potassium 3.5 L (3.6-5.0) mmol/L Chloride 103.6 (98-107) mmol/L Carbon Dioxide 24 (22-30) mmol/L Anion Gap 21 mmol/L BUN 20 H (7-17) mg/dL Creatinine 1.0 (0.7-1.2) mg/dL Estimated GFR > 60 ml/min BUN/Creatinine Ratio 20 % Glucose 103 H (65-100) mg/dL Calcium 9.0 (8.4-10.2) mg/dL Total Bilirubin 0.80 (0.1-1.2) mg/dL AST 48 H (5-40) units/L ALT 38 (7-56) units/L Alkaline Phosphatase 47 (35-129) units/L Troponin T < 0.010 (0.00-0.029) ng/mL NT-Pro-B Natriuret Pep (0-900) pg/mL Total Protein 7.1 (6.3-8.2) g/dL Albumin 3.8 L (3.9-5) g/dL Albumin/Globulin Ratio 1.2 % Lipase 27 (13-60) units/L HCG, Qual (Negative) Urine Color (Yellow) Urine Turbidity (Clear) Urine pH (5.0-7.0) Ur Specific [place] (1.003-1.030) Urine Protein (Negative) mg/dL Urine Glucose (UA) (Negative) mg/dL Urine Ketones (Negative) mg/dL Urine Blood (Negative) Urine Nitrite (Negative) Ur Reducing Substances Urine Bilirubin (Negative) Urine Ictotest Urine Urobilinogen (<2.0) mg/dL Ur Leukocyte Esterase (Negative) Urine WBC (Auto) (0.0-6.0) /HPF Urine RBC (Auto) (0.0-6.0) /HPF U Epithel Cells (Auto) (0-13.0) /HPF Urine Mucus /HPF 06/19/18 06/19/18 06/19/18 Range/Units 11:58 11:58 11:58 WBC (4.5-11.0) K/mm3 RBC (3.65-5.03) M/mm3 Hgb (10.1-14.3) gm/dl Hct (30.3-42.9) % MCV (79-97) fl MCH (28-32) pg MCHC (30-34) % RDW (13.2-15.2) % Plt Count (140-440) K/mm3 Lymph % (Auto) (13.4-35.0) % [place] % (Auto) (0.0-7.3) % Eos % (Auto) (0.0-4.3) % Baso % (Auto) (0.0-1.8) % Lymph # (1.2-5.4) K/mm3 [place] # (0.0-0.8) K/mm3 Eos # (0.0-0.4) K/mm3 Baso # (0.0-0.1) K/mm3 Seg Neutrophils % (40.0-70.0) % Seg Neutrophils # (1.8-7.7) K/mm3 PT (12.2-14.9) Sec. INR (0.87-1.13) APTT (24.2-36.6) Sec. Sodium (137-145) mmol/L Potassium (3.6-5.0) mmol/L Chloride (98-107) mmol/L Carbon Dioxide (22-30) mmol/L Anion Gap mmol/L BUN (7-17) mg/dL Creatinine (0.7-1.2) mg/dL Estimated GFR ml/min BUN/Creatinine Ratio % Glucose (65-100) mg/dL Calcium (8.4-10.2) mg/dL Total Bilirubin (0.1-1.2) mg/dL AST (5-40) units/L ALT (7-56) units/L Alkaline Phosphatase (35-129) units/L Troponin T < 0.010 (0.00-0.029) ng/mL NT-Pro-B Natriuret Pep 3919 H (0-900) pg/mL Total Protein (6.3-8.2) g/dL Albumin (3.9-5) g/dL Albumin/Globulin Ratio % Lipase (13-60) units/L HCG, Qual Negative (Negative) Urine Color (Yellow) Urine Turbidity (Clear) Urine pH (5.0-7.0) Ur Specific [place] (1.003-1.030) Urine Protein (Negative) mg/dL Urine Glucose (UA) (Negative) mg/dL Urine Ketones (Negative) mg/dL Urine Blood (Negative) Urine Nitrite (Negative) Ur Reducing Substances Urine Bilirubin (Negative) Urine Ictotest Urine Urobilinogen (<2.0) mg/dL Ur Leukocyte Esterase (Negative) Urine WBC (Auto) (0.0-6.0) /HPF Urine RBC (Auto) (0.0-6.0) /HPF U Epithel Cells (Auto) (0-13.0) /HPF Urine Mucus /HPF 06/19/18 Range/Units 13:27 WBC (4.5-11.0) K/mm3 RBC (3.65-5.03) M/mm3 Hgb (10.1-14.3) gm/dl Hct (30.3-42.9) % MCV (79-97) fl MCH (28-32) pg MCHC (30-34) % RDW (13.2-15.2) % Plt Count (140-440) K/mm3 Lymph % (Auto) (13.4-35.0) % [place] % (Auto) (0.0-7.3) % Eos % (Auto) (0.0-4.3) % Baso % (Auto) (0.0-1.8) % Lymph # (1.2-5.4) K/mm3 [place] # (0.0-0.8) K/mm3 Eos # (0.0-0.4) K/mm3 Baso # (0.0-0.1) K/mm3 Seg Neutrophils % (40.0-70.0) % Seg Neutrophils # (1.8-7.7) K/mm3 PT (12.2-14.9) Sec. INR (0.87-1.13) APTT (24.2-36.6) Sec. Sodium (137-145) mmol/L Potassium (3.6-5.0) mmol/L Chloride (98-107) mmol/L Carbon Dioxide (22-30) mmol/L Anion Gap mmol/L BUN (7-17) mg/dL Creatinine (0.7-1.2) mg/dL Estimated GFR ml/min BUN/Creatinine Ratio % Glucose (65-100) mg/dL Calcium (8.4-10.2) mg/dL Total Bilirubin (0.1-1.2) mg/dL AST (5-40) units/L ALT (7-56) units/L Alkaline Phosphatase (35-129) units/L Troponin T (0.00-0.029) ng/mL NT-Pro-B Natriuret Pep (0-900) pg/mL Total Protein (6.3-8.2) g/dL Albumin (3.9-5) g/dL Albumin/Globulin Ratio % Lipase (13-60) units/L HCG, Qual (Negative) Urine Color [place] (Yellow) Urine Turbidity Clear (Clear) Urine pH 5.0 (5.0-7.0) Ur Specific [place] 1.031 H (1.003-1.030) Urine Protein 100 mg/dl (Negative) mg/dL Urine Glucose (UA) Neg (Negative) mg/dL Urine Ketones Neg (Negative) mg/dL Urine Blood Neg (Negative) Urine Nitrite Neg (Negative) Ur Reducing Substances Not Reportable Urine Bilirubin Neg (Negative) Urine Ictotest Not Reportable Urine Urobilinogen 4.0 (<2.0) mg/dL Ur Leukocyte Esterase Tr (Negative) Urine WBC (Auto) 8.0 H (0.0-6.0) /HPF Urine RBC (Auto) 3.0 (0.0-6.0) /HPF U Epithel Cells (Auto) 11.0 (0-13.0) /HPF Urine Mucus Few /HPF - EKG Data -: EKG Interpreted by Me Rate: tachycardia - EKG Data Interpretation: other (ST depressions in the lateral leads; inverted t wave) - Radiology Data Radiology results: report reviewed - Medical Decision Making Patient given 40 mg IV Lasix Patient seen by Dr. Ryan inpatient [facility] to follow with her set up mechanic automatic line Critical Care Time: Yes Critical care time in (mins) excluding proc time.: 35 Critical care attestation.: If time is entered above; I have spent that time in minutes in the direct care of this critically ill patient, excluding procedure time. ED Disposition Clinical Impression: CHF (congestive heart failure), Nonspecific chest pain Disposition: TO HOME OR SELFCARE Is pt being admited?: No Does the pt Need Aspirin: No Condition: Stable Instructions: Chest Pain (ED), Heart Failure (ED), Noncardiac Chest Pain (ED) Additional Instructions: return if worse Referrals: JITENDRA VALDEZ MD [Primary Care Provider] - 3-5 Days KENNEDY AGONA MD [Staff Physician] - 3-5 Days [facility] [Provider Group] - 3-5 Days [facility] [Provider Group] - 3-5 Days Time of Disposition: 15:01
[2018-06-19 12:10] LABS: Basophils # (Auto) 0.1 K/mm3 (0.0-0.1); Basophils % (Auto) 0.7 % (0.0-1.8); Eosinophils # (Auto) 0.1 K/mm3 (0.0-0.4); Eosinophils % (Auto) 1.6 % (0.0-4.3); Hematocrit 31.5 % (30.3-42.9); Hemoglobin 9.9 gm/dl (10.1-14.3); Lymphocytes # (Auto) 3.4 K/mm3 (1.2-5.4); Lymphocytes % (Auto) 42.1 % (13.4-35.0); Mean Corpuscular HGB Conc 31 % (30-34); Mean Corpuscular Volume 77 fl (79-97); Monocytes # (Auto) 0.7 K/mm3 (0.0-0.8); Monocytes % (Auto) 8.6 % (0.0-7.3); Platelet Count 330 K/mm3 (140-440); Red Cell Distribution Width 17.6 % (13.2-15.2)
[2018-06-19 12:20] LABS: INR 1.07 (0.87-1.13)
[2018-06-19 12:21] LABS: Partial Thromboplastin Time 26.4 Sec. (24.2-36.6)
[2018-06-19 13:42] LABS: Alanine Aminotransferase 38 units/L (7-56); Albumin 3.8 g/dL (3.9-5); BUN/Creatinine Ratio 20; Blood Urea Nitrogen 20 mg/dL (7-17); Hemolysis Index 3
[2018-06-19 13:51] LABS: Mucus,Urine FEW /HPF
[2018-06-19 13:52] LABS: Bilirubin,Urine NEG (Negative); Blood,Urine NEG (Negative); Color,Urine Amber (Yellow)
[2018-06-19] MEDS ORDERED: LASIX IV ONE (13:53)
[2018-06-19 14:03] LABS: Amphetamine Screen,Urine PRESUMPTIVE NEGATIVE; Benzodiazepines Screen,Urine PRESUMPTIVE NEGATIVE; Cocaine Screen,Urine PRESUMPTIVE NEGATIVE; Methadone Screen,Urine PRESUMPTIVE NEGATIVE; Opiate Screen,Urine PRESUMPTIVE NEGATIVE
[2018-06-19 14:15] LABS: Cannabinoid Screen,Urine PRESUMPTIVE POSITIVE
--- NOTE | 2018-06-19 15:02 | Event Note ---
Date: 06/19/18 Patient evaluated for CHF exacerbation patient comfortable and in no obvious ddistress Pateint was recently admitted for chf exacerbation
[2018-06-19] MEDS ORDERED: SODIUM CHLORIDE FLUSH SYRINGE 10 ML IV PRN ×2 (15:08→22:28)
[2018-06-19] MEDS ORDERED: TYLENOL PO PRN ×2 (15:08→22:28)
[2018-06-19] MEDS ORDERED: PERCOCET 5/325 PO PRN (15:08)
[2018-06-19] MEDS ORDERED: ZOFRAN IV PRN ×2 (15:08→22:28)
[2018-06-19] MEDS ORDERED: HALFPRIN EC PO SCH (16:00)
[2018-06-19] MEDS: COREG PO SCH ×2 (16:01→21:26)
[2018-06-19] MEDS: LOVENOX SUB-Q SCH (16:02)
[2018-06-19] MEDS: K-DUR PO SCH ×2 (16:02→21:26)
[2018-06-19] MEDS: ZESTRIL PO SCH (16:02)
[2018-06-19] MEDS: LASIX IV SCH (18:03)
[2018-06-19] MEDS: SODIUM CHLORIDE FLUSH SYRINGE 10 ML IV SCH (21:28)
[2018-06-19] MEDS: PEPCID PO SCH (21:33)
--- NOTE | 2018-06-19 22:13 | History and Physical Report ---
History of Present Illness Date of examination: 06/19/18 Date of admission: 06/19/18 15:08 Chief complaint: Chest pain since 11 pm Increasing shortness of breath for 1 day History of present illness: 63-year-old -[place] female who was recently discharged after a CHF exacerbation comes in for chest pain since 11 PM last night. Chest pain is dull and the retrosternal with radiation to the left arm. Also some shortness of breath. Patient had a normal stress test and the [facility] in December. Patient also had echocardiogram in December at [facility] which showed ejection fraction of about 40%. Patient was recently admitted for CHF ex acerbation. Patient had increasing shortness of breath and orthopnea for the last 24 hours. Class IV NYHA symptoms. Last discharge summary 2 weeks ago Congestive heart failure ; probably systolic dysfunction Chest pain : Mild improvement Lexiscan an echocardiogram not done because they were done in December 2017 at [facility]. [facility] reports on the previous admission no marcelle Possible pneumonia/community-acquired Treated with antibiotics Past Medical History Previous Medical History?: Yes Hx Hypertension: Yes Hx Congestive Heart Failure: Yes Surgical History Past Surgical History?: No Social History Smoking Status: Never Smoker Medications Home Medications: Home Medications Medication Instructions Recorded Confirmed Last Taken Type Aspirin [Adult Aspirin] 81 mg PO DAILY 06/19/18 06/19/18 Unknown History AtorvaSTATin [Lipitor] 20 mg PO DAILY 06/19/18 06/19/18 Unknown History Carvedilol [Coreg] 6.25 mg PO BID 06/19/18 06/19/18 Unknown History Furosemide [Lasix TAB] 40 mg PO BID 06/19/18 06/19/18 Unknown History Lisinopril [Zestril] 20 mg PO QDAY 06/19/18 06/19/18 Unknown History Review of Systems ROS: Stated complaint: SOB CHEST PAINS Other details as noted in HPI Constitutional: denies: chills, fever Eyes: denies: eye pain, eye discharge, vision change ENT: denies: ear pain, throat pain Respiratory: denies: cough, shortness of breath, wheezing Cardiovascular: chest pain. denies: palpitations Endocrine: no symptoms reported Gastrointestinal: denies: abdominal pain, nausea, diarrhea Genitourinary: denies: urgency, dysuria, discharge Musculoskeletal: denies: back pain, joint swelling, arthralgia Skin: denies: rash, lesions Neurological: denies: headache, weakness, paresthesias Psychiatric: denies: anxiety, depression Hematological/Lymphatic: denies: easy bleeding, easy bruising Medications and Allergies Allergies Allergy/AdvReac Type Severity Reaction Status Date / Time No Known Allergies Allergy Unverified 06/08/18 07:43 Home Medications Medication Instructions Recorded Confirmed Last Taken Type Aspirin [Adult Aspirin] 81 mg PO DAILY 06/19/18 06/19/18 Unknown History AtorvaSTATin [Lipitor] 20 mg PO DAILY 06/19/18 06/19/18 Unknown History Carvedilol [Coreg] 6.25 mg PO BID 06/19/18 06/19/18 Unknown History Furosemide [Lasix TAB] 40 mg PO BID 06/19/18 06/19/18 Unknown History Lisinopril [Zestril] 20 mg PO QDAY 06/19/18 06/19/18 Unknown History Active Meds: Active Medications Acetaminophen (Tylenol) 650 mg PO Q4H PRN PRN Reason: Pain MILD(1-3)/Fever >100.5/MERA Aspirin (Baby Aspirin) 81 mg PO DAILY [facility] Atorvastatin Calcium (Lipitor) 20 mg PO DAILY [facility] Last Admin: 06/19/18 16:01 Dose: 20 mg Documented by: Carvedilol (Coreg) 6.25 mg PO BID [facility] Last Admin: 06/19/18 21:26 Dose: 6.25 mg Documented by: Enoxaparin Sodium (Lovenox) 40 mg SUB-Q QDAY [facility] Last Admin: 06/19/18 16:02 Dose: 40 mg Documented by: Famotidine (Pepcid) 20 mg PO BID [facility] Last Admin: 06/19/18 21:33 Dose: 20 mg Documented by: Furosemide (Lasix) 40 mg IV 0600,1800 [facility] Last Admin: 06/19/18 18:03 Dose: 40 mg Documented by: Hydromorphone HCl (Dilaudid) 0.5 mg IV Q3H PRN PRN Reason: Pain , Severe (7-10) Lisinopril (Zestril) 20 mg PO QDAY [facility] Last Admin: 06/19/18 16:02 Dose: 20 mg Documented by: Ondansetron HCl (Zofran) 4 mg IV Q8H PRN PRN Reason: Nausea And Vomiting Oxycodone/Acetaminophen (Percocet 5/325) 1 tab PO Q6H PRN PRN Reason: Pain, Moderate (4-6) Potassium Chloride (K-Dur) 20 meq PO Q12HR [facility] Last Admin: 06/19/18 21:26 Dose: 20 meq Documented by: Sodium Chloride (Sodium Chloride Flush Syringe 10 Ml) 10 ml IV BID [facility] Last Admin: 06/19/18 21:28 Dose: 10 ml Documented by: Sodium Chloride (Sodium Chloride Flush Syringe 10 Ml) 10 ml IV PRN PRN PRN Reason: LINE FLUSH Exam - Constitutional Vitals: Temp Pulse Resp BP Pulse Ox 97.9 F 90 16 117/78 92 06/19/18 20:07 06/19/18 21:26 06/19/18 20:07 06/19/18 21:26 06/19/18 20:07 General appearance: Present: no acute distress, well-nourished - EENT Eyes: Present: PERRL ENT: hearing intact, clear oral mucosa - Neck Neck: Present: supple, normal ROM - Respiratory Respiratory effort: normal Respiratory: bilateral: CTA - Cardiovascular Heart rate: 104 Rhythm: regular (104) Heart Sounds: Present: S1 & S2. Absent: rub, click - Extremities Extremities: no ischemia, pulses intact, pulses symmetrical, No edema Peripheral Pulses: within normal limits - Abdominal General gastrointestinal: Present: soft, non-tender, non-distended, normal bowel sounds Female genitourinary: Present: normal - Integumentary Integumentary: Present: clear, warm, dry - Musculoskeletal Musculoskeletal: gait normal, strength equal bilaterally - Psychiatric Psychiatric: appropriate mood/affect, intact judgment & insight - Neurologic Neurologic: CNII-XII intact, moves all extremities - Allied Health Allied health notes reviewed: nursing, case management Results - Labs CBC & Chem 7: 06/19/18 11:58 06/19/18 11:58 Labs: Laboratory Last Values WBC 8.0 K/mm3 (4.5-11.0) 06/19/18 11:58 RBC 4.10 M/mm3 (3.65-5.03) 06/19/18 11:58 Hgb 9.9 gm/dl (10.1-14.3) L 06/19/18 11:58 Hct 31.5 % (30.3-42.9) 06/19/18 11:58 MCV 77 fl (79-97) L 06/19/18 11:58 MCH 24 pg (28-32) L 06/19/18 11:58 MCHC 31 % (30-34) 06/19/18 11:58 RDW 17.6 % (13.2-15.2) H 06/19/18 11:58 Plt Count 330 K/mm3 (140-440) 06/19/18 11:58 Lymph % (Auto) 42.1 % (13.4-35.0) H 06/19/18 11:58 [place] % (Auto) 8.6 % (0.0-7.3) H 06/19/18 11:58 Eos % (Auto) 1.6 % (0.0-4.3) 06/19/18 11:58 Baso % (Auto) 0.7 % (0.0-1.8) 06/19/18 11:58 Lymph # 3.4 K/mm3 (1.2-5.4) 06/19/18 11:58 [place] # 0.7 K/mm3 (0.0-0.8) 06/19/18 11:58 Eos # 0.1 K/mm3 (0.0-0.4) 06/19/18 11:58 Baso # 0.1 K/mm3 (0.0-0.1) 06/19/18 11:58 Seg Neutrophils % 47.0 % (40.0-70.0) 06/19/18 11:58 Seg Neutrophils # 3.8 K/mm3 (1.8-7.7) 06/19/18 11:58 PT 14.6 Sec. (12.2-14.9) 06/19/18 11:58 INR 1.07 (0.87-1.13) 06/19/18 11:58 APTT 26.4 Sec. (24.2-36.6) 06/19/18 11:58 Sodium 145 mmol/L (137-145) 06/19/18 11:58 Potassium 3.5 mmol/L (3.6-5.0) L 06/19/18 11:58 Chloride 103.6 mmol/L (98-107) 06/19/18 11:58 Carbon Dioxide 24 mmol/L (22-30) 06/19/18 11:58 Anion Gap 21 mmol/L 06/19/18 11:58 BUN 20 mg/dL (7-17) H 06/19/18 11:58 Creatinine 1.0 mg/dL (0.7-1.2) 06/19/18 11:58 Estimated GFR > 60 ml/min 06/19/18 11:58 BUN/Creatinine Ratio 20 % 06/19/18 11:58 Glucose 103 mg/dL (65-100) H 06/19/18 11:58 Hemoglobin A1c 6.4 % (4-6) H 06/19/18 15:16 Calcium 9.0 mg/dL (8.4-10.2) 06/19/18 11:58 Total Bilirubin 0.80 mg/dL (0.1-1.2) 06/19/18 11:58 AST 48 units/L (5-40) H 06/19/18 11:58 ALT 38 units/L (7-56) 06/19/18 11:58 Alkaline Phosphatase 47 units/L (35-129) 06/19/18 11:58 Troponin T < 0.010 ng/mL (0.00-0.029) 06/19/18 11:58 NT-Pro-B Natriuret Pep 3919 pg/mL (0-900) H 06/19/18 11:58 Total Protein 7.1 g/dL (6.3-8.2) 06/19/18 11:58 Albumin 3.8 g/dL (3.9-5) L 06/19/18 11:58 Albumin/Globulin Ratio 1.2 % 06/19/18 11:58 Lipase 27 units/L (13-60) 06/19/18 11:58 HCG, Qual Negative (Negative) 06/19/18 11:58 Urine Color Nimisha (Yellow) 06/19/18 13:27 Urine Turbidity Clear (Clear) 06/19/18 13:27 Urine pH 5.0 (5.0-7.0) 06/19/18 13:27 Ur Specific [place] 1.031 (1.003-1.030) H 06/19/18 13:27 Urine Protein 100 mg/dl mg/dL (Negative) 06/19/18 13:27 Urine Glucose (UA) Neg mg/dL (Negative) 06/19/18 13:27 Urine Ketones Neg mg/dL (Negative) 06/19/18 13:27 Urine Blood Neg (Negative) 06/19/18 13:27 Urine Nitrite Neg (Negative) 06/19/18 13:27 Ur Reducing Substances Not Reportable 06/19/18 13:27 Urine Bilirubin Neg (Negative) 06/19/18 13:27 Urine Ictotest Not Reportable 06/19/18 13:27 Urine Urobilinogen 4.0 mg/dL (<2.0) 06/19/18 13:27 Ur Leukocyte Esterase Tr (Negative) 06/19/18 13:27 Urine WBC (Auto) 8.0 /HPF (0.0-6.0) H 06/19/18 13:27 Urine RBC (Auto) 3.0 /HPF (0.0-6.0) 06/19/18 13:27 U Epithel Cells (Auto) 11.0 /HPF (0-13.0) 06/19/18 13:27 Urine Mucus Few /HPF 06/19/18 13:27 Urine Opiates Screen Presumptive negative 06/19/18 13:27 Urine Methadone Screen Presumptive negative 06/19/18 13:27 Ur Barbiturates Screen Presumptive negative 06/19/18 13:27 Ur Phencyclidine Scrn Presumptive negative 06/19/18 13:27 Ur Amphetamines Screen Presumptive negative 06/19/18 13:27 U Benzodiazepines Scrn Presumptive negative 06/19/18 13:27 Urine Cocaine Screen Presumptive negative 06/19/18 13:27 U Marijuana (THC) Screen Presumptive positive 06/19/18 13:27 Drugs of Abuse Note Disclamer 06/19/18 13:27 Short CBC 06/19/18 Range/Units 11:58 WBC 8.0 (4.5-11.0) K/mm3 Hgb 9.9 L (10.1-14.3) gm/dl Hct 31.5 (30.3-42.9) % Plt Count 330 (140-440) K/mm3 BMP 06/19/18 11:58 Sodium 145 Potassium 3.5 L Chloride 103.6 Carbon Dioxide 24 BUN 20 H Creatinine 1.0 Glucose 103 H Calcium 9.0 Cardiac Enzymes 06/19/18 06/19/18 Range/Units 11:58 11:58 Troponin T < 0.010 < 0.010 (0.00-0.029) ng/mL Liver Function 06/19/18 Range/Units 11:58 Total Bilirubin 0.80 (0.1-1.2) mg/dL AST 48 H (5-40) units/L ALT 38 (7-56) units/L Alkaline Phosphatase 47 (35-129) units/L Albumin 3.8 L (3.9-5) g/dL Urine 06/19/18 Range/Units 13:27 Urine Color Nimisha (Yellow) Urine pH 5.0 (5.0-7.0) Ur Specific [place] 1.031 H (1.003-1.030) Urine Protein 100 mg/dl (Negative) mg/dL Urine Glucose (UA) Neg (Negative) mg/dL - Imaging and Cardiology EKG: report reviewed (sinus tachycardia heart rate of 104 LVH by voltage criteria) Chest x-ray: report reviewed Imaging and Cardiology: Chest x-ray IMPRESSION: Stable moderate cardiomegaly. Assessment and Plan Advance Directives: Yes (full code) VTE prophylaxis?: Chemical Plan of care discussed with patient/family: Yes - Patient Problems (1) CHF exacerbation Current Visit: No Status: Acute Qualifiers: Heart failure type: combined systolic and diastolic Qualified Code(s): I50.43 - Acute on chronic combined systolic (congestive) and diastolic (congestive) heart failure Plan to address problem: IV Lasix initiated Echocardiogram ordered The patient had echocardiogram in December 2017 of which results are not available which shows dilated cardiomyopathy. Ejection fraction was not mentioned (2) Chest pain Current Visit: No Status: Acute Qualifiers: Chest pain type: unspecified Qualified Code(s): R07.9 - Chest pain, unspecified Plan to address problem: Lexiscan the morning Serial troponins Costochondritis and GERD in the differential diagnosis (3) HTN (hypertension) Current Visit: No Status: Chronic Qualifiers: Hypertension type: essential hypertension Qualified Code(s): I10 - Essential (primary) hypertension Plan to address problem: Continue antihypertensives (4) Hyperlipidemia Current Visit: Yes Status: Chronic Qualifiers: Hyperlipidemia type: mixed hyperlipidemia Qualified Code(s): E78.2 - Mixed hyperlipidemia Plan to address problem: Continue statins (5) DVT prophylaxis Current Visit: No Status: Acute Plan to address problem: Lovenox initiated and GI prophylaxis initiated
[2018-06-19] MEDS ORDERED: K-DUR PO SCH (23:00)
[2018-06-20 05:07] LABS: Basophils # (Auto) 0.1 K/mm3 (0.0-0.1); Basophils % (Auto) 0.8 % (0.0-1.8); Eosinophils # (Auto) 0.1 K/mm3 (0.0-0.4); Eosinophils % (Auto) 1.5 % (0.0-4.3); Hematocrit 29.8 % (30.3-42.9); Hemoglobin 9.3 gm/dl (10.1-14.3); Lymphocytes # (Auto) 2.8 K/mm3 (1.2-5.4); Lymphocytes % (Auto) 42.5 % (13.4-35.0); Mean Corpuscular HGB Conc 31 % (30-34); Mean Corpuscular Volume 78 fl (79-97); Monocytes # (Auto) 0.7 K/mm3 (0.0-0.8); Monocytes % (Auto) 9.8 % (0.0-7.3); Platelet Count 319 K/mm3 (140-440); Red Blood Count 3.84 M/mm3 (3.65-5.03); Red Cell Distribution Width 17.4 % (13.2-15.2)
[2018-06-20 05:57] LABS: Alanine Aminotransferase 35 units/L (7-56); Albumin 3.5 g/dL (3.9-5); BUN/Creatinine Ratio 20; Blood Urea Nitrogen 20 mg/dL (7-17); Calcium 8.6 mg/dL (8.4-10.2); Hemolysis Index 0
[2018-06-20] MEDS: LASIX IV SCH ×3 (06:29→17:33)
[2018-06-20] MEDS ORDERED: LEXISCAN IV ONE (08:24)
[2018-06-20] MEDS: ZESTRIL PO SCH (10:01)
[2018-06-20] MEDS: BABY ASPIRIN PO SCH (10:02)
[2018-06-20] MEDS: LOVENOX SUB-Q SCH (10:02)
[2018-06-20] MEDS: SODIUM CHLORIDE FLUSH SYRINGE 10 ML IV SCH ×4 (10:02→21:54)
[2018-06-20] MEDS: K-DUR PO SCH ×2 (10:02→21:53)
[2018-06-20] MEDS: PEPCID PO SCH ×2 (10:02→21:52)
[2018-06-20] MEDS: COREG PO SCH ×2 (10:02→21:52)
--- NOTE | 2018-06-20 12:28 | Consultation ---
History of Present Illness Consult date: 06/20/18 Consult reason: congestive heart failure History of present illness: The patient is a 63-year-old woman with a history of hypertension, nonischemic cardiomyopathy and chronic systolic heart failure. She states that she has had heart failure for many years, and was managed with medications at [facility] and [facility], until recently when she relocated to this area. She admits to having been recommended for a cardiac defibrillator in the past, which she declined. Records from [place] show that just 6 weeks ago, she had an echocardiogram and a Lexiscan stress test. The echocardiogram reported low ventricular systolic ejection fraction 15-20%, and the thallium showed no ischemia, consistent with a nonischemic cardiomyopathy. Patient presents to the hospital at this time with shortness of breath, productive cough and fatigue, chest x-ray showed severe cardiomegaly, and mild interstitial edema with prominence of the interlobar fissures. ECG was a multifocal atrial rhythm, left ventricular hypertrophy with repolarization abnormalities of LVH. She denies noncompliance with her medications, but admits to a continued fondness for high salt fast foods which is likely contributory to her heart failure exacerbation. Past History Past Medical History: heart failure, hypertension Medications and Allergies Allergies Allergy/AdvReac Type Severity Reaction Status Date / Time No Known Allergies Allergy Unverified 06/08/18 07:43 Home Medications Medication Instructions Recorded Confirmed Last Taken Type Aspirin [Adult Aspirin] 81 mg PO DAILY 06/19/18 06/19/18 Unknown History AtorvaSTATin [Lipitor] 20 mg PO DAILY 06/19/18 06/19/18 Unknown History Carvedilol [Coreg] 6.25 mg PO BID 06/19/18 06/19/18 Unknown History Furosemide [Lasix TAB] 40 mg PO BID 06/19/18 06/19/18 Unknown History Lisinopril [Zestril] 20 mg PO QDAY 06/19/18 06/19/18 Unknown History Active Meds: Active Medications Acetaminophen (Tylenol) 650 mg PO Q4H PRN PRN Reason: Pain MILD(1-3)/Fever >100.5/MERA Aspirin (Baby Aspirin) 81 mg PO DAILY [facility] Last Admin: 06/20/18 10:02 Dose: 81 mg Documented by: Atorvastatin Calcium (Lipitor) 20 mg PO DAILY [facility] Last Admin: 06/20/18 10:02 Dose: 20 mg Documented by: Carvedilol (Coreg) 6.25 mg PO BID [facility] Last Admin: 06/20/18 10:02 Dose: 6.25 mg Documented by: Enoxaparin Sodium (Lovenox) 40 mg SUB-Q QDAY [facility] Last Admin: 06/20/18 10:02 Dose: 40 mg Documented by: Famotidine (Pepcid) 20 mg PO BID [facility] Last Admin: 06/20/18 10:02 Dose: 20 mg Documented by: Furosemide (Lasix) 40 mg IV 0600,1800 [facility] Last Admin: 06/20/18 06:41 Dose: 40 mg Documented by: Furosemide (Lasix) 40 mg IV 0600,1800 [facility] Last Admin: 06/20/18 06:29 Dose: Not Given Documented by: Hydromorphone HCl (Dilaudid) 0.5 mg IV Q3H PRN PRN Reason: Pain , Severe (7-10) Milrinone Lactate/Dextrose (Milrinone-D5w 20 Mg/100 Ml) 20 mg in 100 mls @ 10.024 mls/hr IV TITR [facility] Stop: 06/23/18 12:59 Lisinopril (Zestril) 20 mg PO QDAY [facility] Last Admin: 06/20/18 10:01 Dose: 20 mg Documented by: Ondansetron HCl (Zofran) 4 mg IV Q8H PRN PRN Reason: Nausea And Vomiting Ondansetron HCl (Zofran) 4 mg IV Q8H PRN PRN Reason: Nausea And Vomiting Oxycodone/Acetaminophen (Percocet 5/325) 1 tab PO Q6H PRN PRN Reason: Pain, Moderate (4-6) Potassium Chloride (K-Dur) 20 meq PO Q12HR [facility] Last Admin: 06/20/18 10:02 Dose: 20 meq Documented by: Sodium Chloride (Sodium Chloride Flush Syringe 10 Ml) 10 ml IV BID [facility] Last Admin: 06/20/18 10:02 Dose: 10 ml Documented by: Sodium Chloride (Sodium Chloride Flush Syringe 10 Ml) 10 ml IV PRN PRN PRN Reason: LINE FLUSH Sodium Chloride (Sodium Chloride Flush Syringe 10 Ml) 10 ml IV BID [facility] Last Admin: 06/20/18 10:02 Dose: 10 ml Documented by: Sodium Chloride (Sodium Chloride Flush Syringe 10 Ml) 10 ml IV PRN PRN PRN Reason: LINE FLUSH Review of Systems Cardiovascular: orthopnea, edema, shortness of breath, no chest pain, no palpitations, no rapid/irregular heart beat, no syncope, no lightheadedness Physical Examination Vital Signs Pulse BP 101 H 130/93 06/19/18 12:30 06/19/18 12:30 General appearance: no acute distress HEENT: Positive: PERRL Cardiac: Positive: Reg Rate and Rhythm Lungs: Positive: Decreased Breath Sounds Neuro: Positive: Grossly Intact Abdomen: Positive: Soft Female genitourinary: deferred Skin: Positive: Clear Extremities: Absent: edema Results 06/20/18 04:06 06/20/18 05:05 Cardiac Enzymes 06/19/18 06/20/18 Range/Units 11:58 05:05 AST 48 H 44 H (5-40) units/L CBC 06/20/18 Range/Units 04:06 WBC 6.7 (4.5-11.0) K/mm3 RBC 3.84 (3.65-5.03) M/mm3 Hgb 9.3 L (10.1-14.3) gm/dl Hct 29.8 L (30.3-42.9) % Plt Count 319 (140-440) K/mm3 Lymph # 2.8 (1.2-5.4) K/mm3 [place] # 0.7 (0.0-0.8) K/mm3 Eos # 0.1 (0.0-0.4) K/mm3 Baso # 0.1 (0.0-0.1) K/mm3 Comprehensive Metabolic Panel 06/19/18 06/20/18 Range/Units 11:58 05:05 Sodium 145 142 (137-145) mmol/L Potassium 3.5 L 3.8 (3.6-5.0) mmol/L Chloride 103.6 103.5 (98-107) mmol/L Carbon Dioxide 24 31 H D (22-30) mmol/L BUN 20 H 20 H (7-17) mg/dL Creatinine 1.0 1.0 (0.7-1.2) mg/dL Glucose 103 H 105 H (65-100) mg/dL Calcium 9.0 8.6 (8.4-10.2) mg/dL AST 48 H 44 H (5-40) units/L ALT 38 35 (7-56) units/L Alkaline Phosphatase 47 49 (35-129) units/L Total Protein 7.1 6.6 (6.3-8.2) g/dL Albumin 3.8 L 3.5 L (3.9-5) g/dL EKG interpretations - Telemetry EKG Rhythm: Sinus Rhythm Assessment and Plan - Patient Problems (1) Acute on chronic systolic (congestive) heart failure Current Visit: Yes Status: Acute Plan to address problem: Patient with a long history of a dilated nonischemic cardiomyopathy, presents with acute on chronic systolic heart failure, likely due to dietary salt indiscretion. We will aggressively treat with diuretics, afterload agents, and a trial of intravenous inotropic support with milrinone. Beta blockers will be continued, and doses increased when heart failure is resolved. The patient has committed to maintaining artery salt restriction in the future.
--- NOTE | 2018-06-20 14:09 | Progress Note ---
Assessment and Plan Assessment and plan: Acute resp failure due to CHF exacerbation supplemental Oxygen Acute on chronic systolic CHF EF 15-20% from echocardiogram done at [place] about 6 weeks ago Lasix iv Milrinone drip started by Cardiology Chest pain, non cardiac Had stress test with no ischemia at [place] 6 weeks ago Obesity. I counseled her on diet and exercise Full code status History Interval history: shortness of breath No chest pain Hospitalist Physical - Physical exam Narrative exam: Gen: Not in acute distress, lying in bed,obese HEENT: Normocephalic, atraumatic Heart: S1 and S2 reg, no murmurs, rubs or gallop Lungs: Bilateral basal crackles, no wheezing Abd: soft, non tender, non distended, normal BS Ext: No edema, no clubbing, no cyanosis Neuro: AAO x 3, bilat lower ext edema, moves all ext Psych:Normal mood - Constitutional Vitals: Temp Pulse Resp BP Pulse Ox 98.1 F 93 H 20 123/87 97 06/20/18 11:39 06/20/18 11:39 06/20/18 11:39 06/20/18 11:39 06/20/18 11:39 General appearance: Present: no acute distress Results - Labs CBC & Chem 7: 06/20/18 04:06 06/20/18 05:05 Labs: Laboratory Last Values WBC 6.7 K/mm3 (4.5-11.0) 06/20/18 04:06 RBC 3.84 M/mm3 (3.65-5.03) 06/20/18 04:06 Hgb 9.3 gm/dl (10.1-14.3) L 06/20/18 04:06 Hct 29.8 % (30.3-42.9) L 06/20/18 04:06 MCV 78 fl (79-97) L 06/20/18 04:06 MCH 24 pg (28-32) L 06/20/18 04:06 MCHC 31 % (30-34) 06/20/18 04:06 RDW 17.4 % (13.2-15.2) H 06/20/18 04:06 Plt Count 319 K/mm3 (140-440) 06/20/18 04:06 Lymph % (Auto) 42.5 % (13.4-35.0) H 06/20/18 04:06 [place] % (Auto) 9.8 % (0.0-7.3) H 06/20/18 04:06 Eos % (Auto) 1.5 % (0.0-4.3) 06/20/18 04:06 Baso % (Auto) 0.8 % (0.0-1.8) 06/20/18 04:06 Lymph # 2.8 K/mm3 (1.2-5.4) 06/20/18 04:06 [place] # 0.7 K/mm3 (0.0-0.8) 06/20/18 04:06 Eos # 0.1 K/mm3 (0.0-0.4) 06/20/18 04:06 Baso # 0.1 K/mm3 (0.0-0.1) 06/20/18 04:06 Seg Neutrophils % 45.4 % (40.0-70.0) 06/20/18 04:06 Seg Neutrophils # 3.0 K/mm3 (1.8-7.7) 06/20/18 04:06 PT 14.6 Sec. (12.2-14.9) 06/19/18 11:58 INR 1.07 (0.87-1.13) 06/19/18 11:58 APTT 26.4 Sec. (24.2-36.6) 06/19/18 11:58 Sodium 142 mmol/L (137-145) 06/20/18 05:05 Potassium 3.8 mmol/L (3.6-5.0) 06/20/18 05:05 Chloride 103.5 mmol/L (98-107) 06/20/18 05:05 Carbon Dioxide 31 mmol/L (22-30) H D 06/20/18 05:05 Anion Gap 11 mmol/L 06/20/18 05:05 BUN 20 mg/dL (7-17) H 06/20/18 05:05 Creatinine 1.0 mg/dL (0.7-1.2) 06/20/18 05:05 Estimated GFR > 60 ml/min 06/20/18 05:05 BUN/Creatinine Ratio 20 % 06/20/18 05:05 Glucose 105 mg/dL (65-100) H 06/20/18 05:05 Hemoglobin A1c 6.4 % (4-6) H 06/19/18 15:16 Calcium 8.6 mg/dL (8.4-10.2) 06/20/18 05:05 Total Bilirubin 0.50 mg/dL (0.1-1.2) 06/20/18 05:05 AST 44 units/L (5-40) H 06/20/18 05:05 ALT 35 units/L (7-56) 06/20/18 05:05 Alkaline Phosphatase 49 units/L (35-129) 06/20/18 05:05 Troponin T < 0.010 ng/mL (0.00-0.029) 06/20/18 05:05 NT-Pro-B Natriuret Pep 3919 pg/mL (0-900) H 06/19/18 11:58 Total Protein 6.6 g/dL (6.3-8.2) 06/20/18 05:05 Albumin 3.5 g/dL (3.9-5) L 06/20/18 05:05 Albumin/Globulin Ratio 1.1 % 06/20/18 05:05 Lipase 27 units/L (13-60) 06/19/18 11:58 HCG, Qual Negative (Negative) 06/19/18 11:58 Urine Color Nimisha (Yellow) 06/19/18 13:27 Urine Turbidity Clear (Clear) 06/19/18 13:27 Urine pH 5.0 (5.0-7.0) 06/19/18 13:27 Ur Specific [place] 1.031 (1.003-1.030) H 06/19/18 13:27 Urine Protein 100 mg/dl mg/dL (Negative) 06/19/18 13:27 Urine Glucose (UA) Neg mg/dL (Negative) 06/19/18 13:27 Urine Ketones Neg mg/dL (Negative) 06/19/18 13:27 Urine Blood Neg (Negative) 06/19/18 13:27 Urine Nitrite Neg (Negative) 06/19/18 13:27 Ur Reducing Substances Not Reportable 06/19/18 13:27 Urine Bilirubin Neg (Negative) 06/19/18 13:27 Urine Ictotest Not Reportable 06/19/18 13:27 Urine Urobilinogen 4.0 mg/dL (<2.0) 06/19/18 13:27 Ur Leukocyte Esterase Tr (Negative) 06/19/18 13:27 Urine WBC (Auto) 8.0 /HPF (0.0-6.0) H 06/19/18 13:27 Urine RBC (Auto) 3.0 /HPF (0.0-6.0) 06/19/18 13:27 U Epithel Cells (Auto) 11.0 /HPF (0-13.0) 06/19/18 13:27 Urine Mucus Few /HPF 06/19/18 13:27 Urine Opiates Screen Presumptive negative 06/19/18 13:27 Urine Methadone Screen Presumptive negative 06/19/18 13:27 Ur Barbiturates Screen Presumptive negative 06/19/18 13:27 Ur Phencyclidine Scrn Presumptive negative 06/19/18 13:27 Ur Amphetamines Screen Presumptive negative 06/19/18 13:27 U Benzodiazepines Scrn Presumptive negative 06/19/18 13:27 Urine Cocaine Screen Presumptive negative 06/19/18 13:27 U Marijuana (THC) Screen Presumptive positive 06/19/18 13:27 Drugs of Abuse Note Disclamer 06/19/18 13:27 Active Medications - Current Medications Current Medications: Generic Name Dose Route Start Last Admin Trade Name Freq PRN Reason Stop Dose Admin Acetaminophen 650 mg 06/19/18 22:28 Tylenol PO Q4H PRN Pain MILD(1-3)/Fever >100.5/MERA Aspirin 81 mg 06/20/18 10:00 06/20/18 10:02 Baby Aspirin PO 81 mg DAILY TERESA Administration Atorvastatin Calcium 20 mg 06/19/18 15:15 06/20/18 10:02 Lipitor PO 20 mg DAILY TERESA Administration Carvedilol 6.25 mg 06/19/18 16:00 06/20/18 10:02 Coreg PO 6.25 mg BID TERESA Administration Enoxaparin Sodium 40 mg 06/19/18 16:00 06/20/18 10:02 Lovenox SUB-Q 40 mg QDAY TERESA Administration Famotidine 20 mg 06/19/18 22:00 06/20/18 10:02 Pepcid PO 20 mg BID TERESA Administration Furosemide 40 mg 06/19/18 18:00 06/20/18 06:41 Lasix IV 40 mg 0600,1800 TERESA Administration Furosemide 40 mg 06/20/18 06:00 06/20/18 06:29 Lasix IV Not Given 0600,1800 TERESA Hydromorphone HCl 0.5 mg 06/19/18 15:08 Dilaudid IV Q3H PRN Pain , Severe (7-10) Milrinone Lactate/Dextrose 20 mg in 100 mls @ 10.024 mls/hr 06/20/18 13:00 Milrinone-D5w 20 Mg/100 Ml IV 06/23/18 12:59 TITR TERESA 0.375 MCG/KG/MIN Lisinopril 20 mg 06/19/18 16:00 06/20/18 10:01 Zestril PO 20 mg QDAY TERESA Administration Ondansetron HCl 4 mg 06/19/18 15:08 Zofran IV Q8H PRN Nausea And Vomiting Ondansetron HCl 4 mg 06/19/18 22:28 Zofran IV Q8H PRN Nausea And Vomiting Oxycodone/Acetaminophen 1 tab 06/19/18 15:08 Percocet 5/325 PO Q6H PRN Pain, Moderate (4-6) Potassium Chloride 20 meq 06/19/18 22:00 06/20/18 10:02 K-Dur PO 20 meq Q12HR TERESA Administration Sodium Chloride 10 ml 06/19/18 22:00 06/20/18 10:02 Sodium Chloride Flush Syringe 10 Ml IV 10 ml BID TERESA Administration Sodium Chloride 10 ml 06/19/18 15:08 Sodium Chloride Flush Syringe 10 Ml IV PRN PRN LINE FLUSH Sodium Chloride 10 ml 06/20/18 10:00 06/20/18 10:02 Sodium Chloride Flush Syringe 10 Ml IV 10 ml BID TERESA Administration Sodium Chloride 10 ml 06/19/18 22:28 Sodium Chloride Flush Syringe 10 Ml IV PRN PRN LINE FLUSH
[2018-06-20] MEDS: MILRINONE-D5W 20 MG/100 ML 20 MG/100 ML BAG IV SCH ×2 (14:17→21:57)
[2018-06-21] MEDS: LASIX IV SCH (05:52)
[2018-06-21] MEDS: DILAUDID IV PRN ×4 (08:15→17:55)
[2018-06-21] MEDS: COREG PO SCH ×2 (09:14→21:05)
[2018-06-21] MEDS: PEPCID PO SCH ×2 (09:14→21:05)
[2018-06-21] MEDS: BABY ASPIRIN PO SCH (09:14)
[2018-06-21] MEDS: ZESTRIL PO SCH (09:14)
[2018-06-21] MEDS: K-DUR PO SCH ×2 (09:14→21:05)
[2018-06-21] MEDS: LOVENOX SUB-Q SCH (09:15)
[2018-06-21] MEDS: SODIUM CHLORIDE FLUSH SYRINGE 10 ML IV SCH ×3 (09:15→21:05)
[2018-06-21] MEDS: MILRINONE-D5W 20 MG/100 ML 20 MG/100 ML BAG IV SCH (09:22)
--- NOTE | 2018-06-21 11:13 | Progress Note ---
Assessment and Plan Acute on chronic systolic heart failure s/t noncompliance with dietary restrictions Hypertension Nonischemic cardiomyopathy she admits to having been recommended for a cardiac defibrillator in the past, which she declined. Paroxysmal Afib seen on telemetry Records from [facility] just 6 weeks ago: echocardiogram reported low ventricular systolic ejection fraction 15-20% thallium showed no ischemia, consistent with a nonischemic cardiomyopathy. Continue medical therapy for acute on chronic systolic heart failure. We will change from IV lasix to oral form. We will initiate eliquis for CVA prophylaxis. Stable cardiac enrique. Subjective Date of service: 06/21/18 Interval history: Patient reports her breathing is better. Continues on IV milrinone therapy. 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 Objective Vital Signs Temp Pulse Pulse Resp BP Pulse Ox 06/21/18 09:13 98.5 F 16 138/76 06/21/18 04:04 98.5 F 99 H 12 125/73 90 06/20/18 23:46 98.6 F 93 H 14 126/76 93 06/20/18 22:15 98 H 18 92 06/20/18 21:52 98 H 112/76 06/20/18 19:36 97.7 F 50 L 16 112/76 92 06/20/18 19:21 103 H 06/20/18 17:00 101 H 06/20/18 16:56 97.9 F 97 H 16 128/82 93 06/20/18 11:39 98.1 F 93 H 20 123/87 97 - Physical Examination General: No Apparent Distress HEENT: Positive: PERRL Cardiac: Positive: irregularly irregular Lungs: Positive: Decreased Breath Sounds Neuro: Positive: Grossly Intact Extremities: Absent: edema
--- NOTE | 2018-06-21 13:34 | Progress Note ---
Assessment and Plan Assessment and plan: Acute resp failure due to CHF exacerbation Cont supplemental Oxygen Acute on chronic systolic CHF EF 15-20% from echocardiogram done at [place] about 6 weeks ago Lasix iv Milrinone discontinued started by Cardiology Chest pain, non cardiac Had stress test with no ischemia at [place] 6 weeks ago Obesity. I counseled her on diet and exercise Full code status Hopefully dc home tomorrow. History Interval history: less shortness of breath No chest pain Hospitalist Physical - Physical exam Narrative exam: Gen: Not in acute distress, lying in bed,obese HEENT: Normocephalic, atraumatic Heart: S1 and S2 reg, no murmurs, rubs or gallop Lungs: Bilateral basal crackles, no wheezing Abd: soft, non tender, non distended, normal BS Ext: No edema, no clubbing, no cyanosis Neuro: AAO x 3, bilat lower ext edema, moves all ext Psych:Normal mood - Constitutional Vitals: Temp Pulse Resp BP Pulse Ox 98.5 F 97 H 18 124/79 91 06/21/18 12:45 06/21/18 12:45 06/21/18 12:45 06/21/18 12:45 06/21/18 12:45 General appearance: Present: no acute distress Results - Labs CBC & Chem 7: 06/20/18 04:06 06/20/18 05:05 Labs: Laboratory Last Values WBC 6.7 K/mm3 (4.5-11.0) 06/20/18 04:06 RBC 3.84 M/mm3 (3.65-5.03) 06/20/18 04:06 Hgb 9.3 gm/dl (10.1-14.3) L 06/20/18 04:06 Hct 29.8 % (30.3-42.9) L 06/20/18 04:06 MCV 78 fl (79-97) L 06/20/18 04:06 MCH 24 pg (28-32) L 06/20/18 04:06 MCHC 31 % (30-34) 06/20/18 04:06 RDW 17.4 % (13.2-15.2) H 06/20/18 04:06 Plt Count 319 K/mm3 (140-440) 06/20/18 04:06 Lymph % (Auto) 42.5 % (13.4-35.0) H 06/20/18 04:06 [place] % (Auto) 9.8 % (0.0-7.3) H 06/20/18 04:06 Eos % (Auto) 1.5 % (0.0-4.3) 06/20/18 04:06 Baso % (Auto) 0.8 % (0.0-1.8) 06/20/18 04:06 Lymph # 2.8 K/mm3 (1.2-5.4) 06/20/18 04:06 [place] # 0.7 K/mm3 (0.0-0.8) 06/20/18 04:06 Eos # 0.1 K/mm3 (0.0-0.4) 06/20/18 04:06 Baso # 0.1 K/mm3 (0.0-0.1) 06/20/18 04:06 Seg Neutrophils % 45.4 % (40.0-70.0) 06/20/18 04:06 Seg Neutrophils # 3.0 K/mm3 (1.8-7.7) 06/20/18 04:06 PT 14.6 Sec. (12.2-14.9) 06/19/18 11:58 INR 1.07 (0.87-1.13) 06/19/18 11:58 APTT 26.4 Sec. (24.2-36.6) 06/19/18 11:58 Sodium 142 mmol/L (137-145) 06/20/18 05:05 Potassium 3.8 mmol/L (3.6-5.0) 06/20/18 05:05 Chloride 103.5 mmol/L (98-107) 06/20/18 05:05 Carbon Dioxide 31 mmol/L (22-30) H D 06/20/18 05:05 Anion Gap 11 mmol/L 06/20/18 05:05 BUN 20 mg/dL (7-17) H 06/20/18 05:05 Creatinine 1.0 mg/dL (0.7-1.2) 06/20/18 05:05 Estimated GFR > 60 ml/min 06/20/18 05:05 BUN/Creatinine Ratio 20 % 06/20/18 05:05 Glucose 105 mg/dL (65-100) H 06/20/18 05:05 Hemoglobin A1c 6.4 % (4-6) H 06/19/18 15:16 Calcium 8.6 mg/dL (8.4-10.2) 06/20/18 05:05 Total Bilirubin 0.50 mg/dL (0.1-1.2) 06/20/18 05:05 AST 44 units/L (5-40) H 06/20/18 05:05 ALT 35 units/L (7-56) 06/20/18 05:05 Alkaline Phosphatase 49 units/L (35-129) 06/20/18 05:05 Troponin T < 0.010 ng/mL (0.00-0.029) 06/20/18 05:05 NT-Pro-B Natriuret Pep 3919 pg/mL (0-900) H 06/19/18 11:58 Total Protein 6.6 g/dL (6.3-8.2) 06/20/18 05:05 Albumin 3.5 g/dL (3.9-5) L 06/20/18 05:05 Albumin/Globulin Ratio 1.1 % 06/20/18 05:05 Lipase 27 units/L (13-60) 06/19/18 11:58 HCG, Qual Negative (Negative) 06/19/18 11:58 Urine Color Nimisha (Yellow) 06/19/18 13:27 Urine Turbidity Clear (Clear) 06/19/18 13:27 Urine pH 5.0 (5.0-7.0) 06/19/18 13:27 Ur Specific [place] 1.031 (1.003-1.030) H 06/19/18 13:27 Urine Protein 100 mg/dl mg/dL (Negative) 06/19/18 13:27 Urine Glucose (UA) Neg mg/dL (Negative) 06/19/18 13:27 Urine Ketones Neg mg/dL (Negative) 06/19/18 13:27 Urine Blood Neg (Negative) 06/19/18 13:27 Urine Nitrite Neg (Negative) 06/19/18 13:27 Ur Reducing Substances Not Reportable 06/19/18 13:27 Urine Bilirubin Neg (Negative) 06/19/18 13:27 Urine Ictotest Not Reportable 06/19/18 13:27 Urine Urobilinogen 4.0 mg/dL (<2.0) 06/19/18 13:27 Ur Leukocyte Esterase Tr (Negative) 06/19/18 13:27 Urine WBC (Auto) 8.0 /HPF (0.0-6.0) H 06/19/18 13:27 Urine RBC (Auto) 3.0 /HPF (0.0-6.0) 06/19/18 13:27 U Epithel Cells (Auto) 11.0 /HPF (0-13.0) 06/19/18 13:27 Urine Mucus Few /HPF 06/19/18 13:27 Urine Opiates Screen Presumptive negative 06/19/18 13:27 Urine Methadone Screen Presumptive negative 06/19/18 13:27 Ur Barbiturates Screen Presumptive negative 06/19/18 13:27 Ur Phencyclidine Scrn Presumptive negative 06/19/18 13:27 Ur Amphetamines Screen Presumptive negative 06/19/18 13:27 U Benzodiazepines Scrn Presumptive negative 06/19/18 13:27 Urine Cocaine Screen Presumptive negative 06/19/18 13:27 U Marijuana (THC) Screen Presumptive positive 06/19/18 13:27 Drugs of Abuse Note Disclamer 06/19/18 13:27 Active Medications - Current Medications Current Medications: Generic Name Dose Route Start Last Admin Trade Name Freq PRN Reason Stop Dose Admin Acetaminophen 650 mg 06/19/18 22:28 Tylenol PO Q4H PRN Pain MILD(1-3)/Fever >100.5/MERA Apixaban 5 mg 06/21/18 22:00 Eliquis PO Q12HR [facility] Protocol Aspirin 81 mg 06/20/18 10:00 06/21/18 09:14 Baby Aspirin PO 81 mg DAILY TERESA Administration Atorvastatin Calcium 20 mg 06/19/18 15:15 06/21/18 09:14 Lipitor PO 20 mg DAILY TERESA Administration Carvedilol 6.25 mg 06/19/18 16:00 06/21/18 09:14 Coreg PO 6.25 mg BID TERESA Administration Famotidine 20 mg 06/19/18 22:00 06/21/18 09:14 Pepcid PO 20 mg BID TERESA Administration Furosemide 40 mg 06/21/18 18:00 Lasix PO 0600,1800 [facility] Hydromorphone HCl 0.5 mg 06/19/18 15:08 06/21/18 08:15 Dilaudid IV 0.5 mg Q3H PRN Administration Pain , Severe (7-10) Lisinopril 20 mg 06/19/18 16:00 06/21/18 09:14 Zestril PO 20 mg QDAY TERESA Administration Ondansetron HCl 4 mg 06/19/18 22:28 Zofran IV Q8H PRN Nausea And Vomiting Oxycodone/Acetaminophen 1 tab 06/19/18 15:08 Percocet 5/325 PO Q6H PRN Pain, Moderate (4-6) Potassium Chloride 20 meq 06/19/18 22:00 06/21/18 09:14 K-Dur PO 20 meq Q12HR TERESA Administration Sodium Chloride 10 ml 06/19/18 22:00 06/21/18 09:15 Sodium Chloride Flush Syringe 10 Ml IV 10 ml BID TERESA Administration Sodium Chloride 10 ml 06/19/18 15:08 Sodium Chloride Flush Syringe 10 Ml IV PRN PRN LINE FLUSH
[2018-06-21] MEDS: LASIX PO SCH (17:53)
[2018-06-21] MEDS: ELIQUIS PO SCH (21:05)
--- NOTE | 2018-06-21 22:54 | Progress Note ---
Assessment and Plan Acute on chronic systolic heart failure s/t noncompliance with dietary restrictions Continue medical therapy for acute on chronic systolic heart failure. Continue diuresis with PO lasix and adjust dose accordingly Maximize medical therapy as blood pressure allows Hypertension - maximal medical therapy Nonischemic cardiomyopathy echocardiogram reported low ventricular systolic ejection fraction 15-20% (done at [facility] thallium showed no ischemia, consistent with a nonischemic cardiomyopathy. she admits to having been recommended for a cardiac defibrillator in the past, which she declined. continue maximal medical therapy Paroxysmal Afib seen on telemetry rate control strategy atrial fibrillation on tele anticoagulation with eliquis recommended Subjective Date of service: 06/22/18 Interval history: No acute events. Resting comfortably. No chest pain or SOB. Objective Vital Signs Temp Pulse Resp BP Pulse Ox 06/21/18 19:51 98.0 F 90 18 132/69 99 06/21/18 17:32 92 H 124/81 97 06/21/18 12:45 98.5 F 97 H 18 124/79 91 06/21/18 10:00 97 H 06/21/18 09:13 98.5 F 16 138/76 06/21/18 04:04 98.5 F 99 H 12 125/73 90 06/20/18 23:46 98.6 F 93 H 14 126/76 93 - Physical Examination General: No Apparent Distress HEENT: Positive: PERRL Neuro: Positive: Grossly Intact Abdomen: Positive: Soft Skin: Positive: Clear Extremities: Absent: edema - Imaging and Cardiology EKG: report reviewed (sinus tachycardia heart rate of 104 LVH by voltage criteria)
[2018-06-22] MEDS: LASIX PO SCH (06:13)
[2018-06-22 08:53] VITALS: BP 117/94
[2018-06-22] MEDS: K-DUR PO SCH (09:05)
[2018-06-22] MEDS: ELIQUIS PO SCH (09:05)
[2018-06-22] MEDS: PEPCID PO SCH (09:05)
[2018-06-22] MEDS: BABY ASPIRIN PO SCH (09:06)
[2018-06-22] MEDS: COREG PO SCH (09:06)
[2018-06-22] MEDS: SODIUM CHLORIDE FLUSH SYRINGE 10 ML IV SCH (09:07)
[2018-06-22] MEDS: ZESTRIL PO SCH (09:07)
--- NOTE | 2018-06-22 13:01 | Discharge Summary ---
Providers - Providers Date of Admission: 06/19/18 15:08 Date of discharge: 06/22/18 Attending physician: ANA TOBIN 06/19/18 15:15 Consult to Physician [CONS] Routine Comment: Consulting Provider: KENNEDY FOWLER Physician Instructions: Reason For Exam: CHF exacerbation Primary care physician: [employer]TENA[employer]CE [employer]PER Hospitalization Condition: Fair Hospital course: Patient is 63 yo who was recently discharged after a CHF exacerbation presented with chest pain and shortness of breath. She was seen and evaluated in the emergency department and diagnosed with CHF exacerbation. Patient had recent negative ischemic workup so chest pain noncardiac. Patient was started on Lasix, Aspirin and admitted. she was evaluated by cardiology and put on Milrinone drip for EF 15-20%. Shortness of breath improved over few days, so Milrinone was discontinued and she was discharged home on 06/22/18. Total time spent on discharge, 32 mins Disposition: DC- TO HOME OR SELFCARE - Discharge Diagnoses (1) Acute on chronic systolic (congestive) heart failure Status: Acute (2) Nonspecific chest pain Status: Acute (3) HTN (hypertension) Status: Chronic Qualifiers: Hypertension type: essential hypertension Qualified Code(s): I10 - Essential (primary) hypertension (4) Hyperlipidemia Status: Chronic Qualifiers: Hyperlipidemia type: mixed hyperlipidemia Qualified Code(s): E78.2 - Mixed hyperlipidemia (5) GERD (gastroesophageal reflux disease) Status: Acute Core Measure Documentation - Palliative Care Palliative Care/ Comfort Measures: Not Applicable - Core Measures Any of the following diagnoses?: heart failure - Heart Failure Discharge Requirements UGO/ARB for LVSD if EF <40%: Yes Beta jameson at discharge: Yes Exam - Constitutional Vitals: Temp Pulse Resp BP Pulse Ox 97.8 F 90 18 117/94 99 06/22/18 08:01 06/22/18 09:07 06/22/18 09:59 06/22/18 09:07 06/22/18 04:48 Plan Activity: advance as tolerated Diet: low fat, low cholesterol, low salt Additional Instructions: 1.Follow up with PCP in 1 week. 2.Follow up with Dr. Fowler in 1 week. Follow up with: [facility], [Provider Group] - 3-5 Days [facility] [Provider Group] - 3-5 Days KENNEDY FOWLER MD [Staff Physician] - 3-5 Days RICHLAND JITENDRA RAYGOZA MD [Referring] - 3-5 Days Prescriptions: Apixaban [Eliquis] 5 mg PO Q12HR #60 tablet Famotidine [Pepcid] 20 mg PO BID #60 tablet
== END 2018-06-22 15:13 | disposition home or self-care (01) | DRG 291 ==
LOC: ED 05:57 → 4A 15:08
PROVIDERS: ADMIT Internal Medicine; ATTEND Internal Medicine
DX: I11.0 Hypertensive heart disease with heart failure (principal); J96.00 Acute respiratory failure, unspecified whether with hypoxia or hypercapnia; I42.8 Other cardiomyopathies; I48.0 Paroxysmal atrial fibrillation; I42.0 Dilated cardiomyopathy; I50.43 Acute on chronic combined systolic (congestive) and diastolic (congestive) heart failure; E78.2 Mixed hyperlipidemia; E66.9 Obesity, unspecified; Z68.32 Body mass index [BMI] 32.0-32.9, adult; Z71.3 Dietary counseling and surveillance; Z79.82 Long term (current) use of aspirin; Z79.899 Other long term (current) drug therapy
CPT/HCPCS: 36415; 71045; 80053; 80307; 81001; 83036; 83690; 83880; 84484; 84703; 85025; 85610; 85730; 93005; 93010; G0378; A9270-GY; J1170; J1650; J1940; J2260; J2785

== ENCOUNTER 2018-07-03 16:29 | Inpatient (IN) | payer MEDICARE ==
[2018-07-03] MEDS ORDERED: DUONEB *Not for PRN Use IH ONE (17:05)
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
[2018-07-03 17:54] LABS: Basophils % (Auto) 0.3 % (0.0-1.8); Eosinophils # (Auto) 0.1 K/mm3 (0.0-0.4); Eosinophils % (Auto) 1.8 % (0.0-4.3); Hematocrit 29.6 % (30.3-42.9); Hemoglobin 9.4 gm/dl (10.1-14.3); Lymphocytes # (Auto) 2.9 K/mm3 (1.2-5.4); Mean Corpuscular HGB Conc 32 % (30-34); Mean Corpuscular Volume 76 fl (79-97); Monocytes # (Auto) 0.7 K/mm3 (0.0-0.8); Monocytes % (Auto) 9.5 % (0.0-7.3); Platelet Count 307 K/mm3 (140-440); Red Cell Distribution Width 17.7 % (13.2-15.2)
[2018-07-03 18:07] LABS: INR 1.11 (0.87-1.13)
[2018-07-03 18:08] LABS: Partial Thromboplastin Time 29.1 Sec. (24.2-36.6)
[2018-07-03 18:11] LABS: BUN/Creatinine Ratio 28; Blood Urea Nitrogen 25 mg/dL (7-17); Calcium 8.9 mg/dL (8.4-10.2); Hemolysis Index 37
--- NOTE | 2018-07-03 18:34 | XRay Report ---
PROCEDURE: XR CHEST 1V AP TECHNIQUE: Frontal portable view of the chest HISTORY: Chest Pain COMPARISONS: Chest x-rays dated June 19, 2018 and June 08, 2018 FINDINGS: There continues to be moderate to marked enlargement of the cardiac silhouette that is not significan tly changed. There is prominence of the pulmonary venous vasculature suggestive of pulmonary venous congestion. There is no definite evidence of focal infiltrate and no evidence of pneumothorax or pleural fluid co llection. However, evaluation of the lung bases is limited by artifact created by large body habitus. There is atherosclerotic vascular calcification of the thoracic aorta. The bony structures are unremarkable. Visualization of detail of the thoracic spine is limited. IMPRESSION: 1. Moderate to marked enlargement of the cardiac silhouette with evidence of pulmonary venous congest ion not significantly changed. 2. No definite evidence of pulmonary infiltrate. However, evaluation of the lung bases is limited by artifact created by large body habitus. If further imaging is required, PA and lateral views of the chest were CT chest may be helpful. This document is electronically signed by Amber Grewal MD., July 03 2018 06:32:06 PM ET
[2018-07-03] MEDS ORDERED: LASIX IV ONE (18:53)
[2018-07-03] MEDS ORDERED: BABY ASPIRIN PO ONE (18:53)
--- NOTE | 2018-07-03 18:56 | Cat Scan Report ---
PROCEDURE: CT ANGIO CHEST TECHNIQUE : Enhanced CT of the chest at 2.5 mm axial intervals following a pulmonary embolism protoco l. Coronal and sagittal imaging were also obtained. Coronal oblique MIP projections were obtained. CT DOSE LENGTH PRODUCT: 764.1 mGycm HISTORY: SOB, CP, elevated D-dimer PRIORS: CXR 07/03/2018 FINDINGS: There is no evidence for pulmonary embolism in the main pulmonary artery, right and left pulmonary ar teries or their major distributions. However, CT does not exclude distal pulmonary emboli. There are alveolar infiltrates in the right lower lobe and right middle lobe. There is also linear at electasis in the Otherwise, there is no evidence for parenchymal nodules, congestion, or pleural effusion. There is no evidence for mediastinal, hilar, or axillary adenopathy. The heart is moderately enlarged, unchanged. This includes enlargement of the left atrium and left ve ntricle. Images through the lung bases include the upper abdomen which show no abnormalities of the visualized abdominal viscera. Bony structures demonstrate no focal abnormalities. IMPRESSION: 1. No evidence for pulmonary embolism. 2. Endotracheal infiltrates in the right middle and lower lobes 3. Linear atelectasis in the left lower lobe 4. Moderate cardiomegaly especially involving the left sided chambers. This document is electronically signed by Lizette Pratt MD., July 03 2018 06:54:13 PM ET
[2018-07-03] MEDS ORDERED: LEVAQUIN 750MG/150ML 750 MG/150 ML BAG IV ONE (19:03)
--- NOTE | 2018-07-03 21:28 | History and Physical Report ---
History of Present Illness Date of examination: 07/03/18 Date of admission: 07/03/18 19:27 Chief complaint: Increasing SOB since AM History of present illness: 63-year-old -[place] female who was recently discharged after bein treated for CHF exacerbation comes in for SOB and chest pain since 11 AM Chest pain is dull and retrosternal with radiation to the left arm. Also some shortness of breath. Patient had a normal stress test at [facility] on Apr 15 2018.EF was 19 percent and L heart systolic failure. Class IV NYHA symptoms.No perfusion defects on stress test done on 04/15/18.Scanned results on previous admission on 06/12/18.Orthopnea present. Past Medical History Previous Medical History?: Yes Hx Hypertension: Yes Hx Congestive Heart Failure: Yes Surgical History Past Surgical History?: No Social History Smoking Status: Never Smoker Family History Htn Medications Home Medications: Home Medications Medication Instructions Recorded Confirmed Last Taken Type Aspirin [Adult Aspirin] 81 mg PO DAILY 06/19/18 06/19/18 Unknown History AtorvaSTATin [Lipitor] 20 mg PO DAILY 06/19/18 06/19/18 Unknown History Carvedilol [Coreg] 6.25 mg PO BID 06/19/18 06/19/18 Unknown History Furosemide [Lasix TAB] 40 mg PO BID 06/19/18 06/19/18 Unknown History Lisinopril [Zestril] 20 mg PO QDAY 06/19/18 06/19/18 Unknown History Review of Systems ROS: Stated complaint: SOB CHEST PAINS Other details as noted in HPI Constitutional: denies: chills, fever Eyes: denies: eye pain, eye discharge, vision change ENT: denies: ear pain, throat pain Respiratory: denies: cough, shortness of breath, wheezing Cardiovascular: chest pain. denies: palpitations SOB on minimal exertion and Orthopnea present Endocrine: no symptoms reported Gastrointestinal: denies: abdominal pain, nausea, diarrhea Genitourinary: denies: urgency, dysuria, discharge Musculoskeletal: denies: back pain, joint swelling, arthralgia Skin: denies: rash, lesions Neurological: denies: headache, weakness, paresthesias Psychiatric: denies: anxiety, depression Hematological/Lymphatic: denies: easy bleeding, easy bruising Medications and Allergies Allergies Allergy/AdvReac Type Severity Reaction Status Date / Time No Known Allergies Allergy Unverified 06/08/18 07:43 Home Medications Medication Instructions Recorded Confirmed Last Taken Type Aspirin [Adult Aspirin] 81 mg PO DAILY 06/19/18 07/03/18 07/03/18 History AtorvaSTATin [Lipitor] 20 mg PO DAILY 06/19/18 07/03/18 07/03/18 History Carvedilol [Coreg] 6.25 mg PO BID 06/19/18 07/03/18 07/03/18 History Furosemide [Lasix TAB] 40 mg PO BID 06/19/18 07/03/18 07/03/18 History Lisinopril [Zestril TAB] 20 mg PO QDAY 06/19/18 07/03/18 07/03/18 History Apixaban [Eliquis] 5 mg PO Q12HR #60 tablet 06/22/18 07/03/18 07/03/18 Rx Famotidine [Pepcid] 20 mg PO BID #60 tablet 06/22/18 07/03/18 07/03/18 Rx Exam - Constitutional Vitals: Temp Pulse Resp BP Pulse Ox 97.8 F 89 12 132/96 99 07/03/18 20:58 07/03/18 20:58 07/03/18 20:58 07/03/18 20:58 07/03/18 20:58 General appearance: Present: mild distress, well-nourished - EENT Eyes: Present: PERRL ENT: hearing intact, clear oral mucosa - Neck Neck: Present: supple, normal ROM - Respiratory Respiratory effort: normal Respiratory: bilateral: CTA - Cardiovascular Heart rate: 78 Rhythm: regular Heart Sounds: Present: S1 & S2. Absent: rub, click - Extremities Extremities: no ischemia, pulses intact, pulses symmetrical, No edema Peripheral Pulses: within normal limits - Abdominal General gastrointestinal: Present: soft, non-tender, non-distended, normal bowel sounds Female genitourinary: Present: normal - Rectal Rectal Exam: deferred - Integumentary Integumentary: Present: clear, warm, dry - Musculoskeletal Musculoskeletal: gait normal, strength equal bilaterally - Psychiatric Psychiatric: appropriate mood/affect, intact judgment & insight - Neurologic Neurologic: CNII-XII intact, moves all extremities - Allied Health Allied health notes reviewed: nursing, case management Results - Labs CBC & Chem 7: 07/03/18 17:42 07/03/18 17:42 Labs: Laboratory Last Values WBC 7.0 K/mm3 (4.5-11.0) 07/03/18 17:42 RBC 3.90 M/mm3 (3.65-5.03) 07/03/18 17:42 Hgb 9.4 gm/dl (10.1-14.3) L 07/03/18 17:42 Hct 29.6 % (30.3-42.9) L 07/03/18 17:42 MCV 76 fl (79-97) L 07/03/18 17:42 MCH 24 pg (28-32) L 07/03/18 17:42 MCHC 32 % (30-34) 07/03/18 17:42 RDW 17.7 % (13.2-15.2) H 07/03/18 17:42 Plt Count 307 K/mm3 (140-440) 07/03/18 17:42 Lymph % (Auto) 41.0 % (13.4-35.0) H 07/03/18 17:42 [place] % (Auto) 9.5 % (0.0-7.3) H 07/03/18 17:42 Eos % (Auto) 1.8 % (0.0-4.3) 07/03/18 17:42 Baso % (Auto) 0.3 % (0.0-1.8) 07/03/18 17:42 Lymph # 2.9 K/mm3 (1.2-5.4) 07/03/18 17:42 [place] # 0.7 K/mm3 (0.0-0.8) 07/03/18 17:42 Eos # 0.1 K/mm3 (0.0-0.4) 07/03/18 17:42 Baso # 0.0 K/mm3 (0.0-0.1) 07/03/18 17:42 Seg Neutrophils % 47.4 % (40.0-70.0) 07/03/18 17:42 Seg Neutrophils # 3.3 K/mm3 (1.8-7.7) 07/03/18 17:42 PT 15.0 Sec. (12.2-14.9) H 07/03/18 17:42 INR 1.11 (0.87-1.13) 07/03/18 17:42 APTT 29.1 Sec. (24.2-36.6) 07/03/18 17:42 D-Dimer 265.65 ng/mlDDU (0-234) H 07/03/18 17:42 Sodium 139 mmol/L (137-145) 07/03/18 17:42 Potassium 4.2 mmol/L (3.6-5.0) 07/03/18 17:42 Chloride 103.3 mmol/L (98-107) 07/03/18 17:42 Carbon Dioxide 24 mmol/L (22-30) 07/03/18 17:42 Anion Gap 16 mmol/L 07/03/18 17:42 BUN 25 mg/dL (7-17) H 07/03/18 17:42 Creatinine 0.9 mg/dL (0.7-1.2) 07/03/18 17:42 Estimated GFR > 60 ml/min 07/03/18 17:42 BUN/Creatinine Ratio 28 % 07/03/18 17:42 Glucose 106 mg/dL (65-100) H 07/03/18 17:42 Calcium 8.9 mg/dL (8.4-10.2) 07/03/18 17:42 Troponin T < 0.010 ng/mL (0.00-0.029) 07/03/18 19:30 NT-Pro-B Natriuret Pep 5062 pg/mL (0-900) H 07/03/18 17:42 - Imaging and Cardiology EKG: report reviewed Imaging and Cardiology: CTA There are alveolar infiltrates in the right lower lobe and right middle lobe. There is also linear atelectasis. iOtherwise, there is no evidence for parenchymal nodules, congestion, or pleural effusion. There is no evidence for mediastinal, hilar, or axillary adenopathy. The heart is moderately enlarged, unchanged. This includes enlargement of the left atrium and left ventricle. Images through the lung bases include the upper abdomen which show no abnormalities of the visualized abdominal viscera. Bony structures demonstrate no focal abnormalities. IMPRESSION: 1. No evidence for pulmonary embolism. 2. Alveolar infiltrates in the right middle and lower lobes 3. Linear atelectasis in the left lower lobe 4. Moderate cardiomegaly especially involving the left sided chambers. Assessment and Plan Assessment and plan: (1) CHF exacerbation Current Visit: No Status: Acute Qualifiers: Heart failure type: combined systolic and diastolic Qualified Code(s): I50.43 - Acute on chronic combined systolic (congestive) and diastolic (congestive) heart failure Plan to address problem: IV Lasix initiated EF 19 percent on 04/15/18 ECHO done at [facility] showing LV Systolic dysfunction. Cardiology consult requested RML and RLL Alveolar infiltrates sec to CHF. (2) Chest pain Current Visit: No Status: Acute Qualifiers: Chest pain type: unspecified Qualified Code(s): R07.9 - Chest pain, unspecified Plan to address problem: Serial troponins Stress test on 04/15/18 negative.No reversible perfusion defects. Costochondritis and GERD in the differential diagnosis (3) HTN (hypertension) Current Visit: No Status: Chronic Qualifiers: Hypertension type: essential hypertension Qualified Code(s): I10 - Essential (primary) hypertension Plan to address problem: Continue antihypertensives (4) Hyperlipidemia Current Visit: Yes Status: Chronic Qualifiers: Hyperlipidemia type: mixed hyperlipidemia Qualified Code(s): E78.2 - Mixed hyperlipidemia Plan to address problem: Continue statins (5)Anemia Iron leveld ordered.Same H/H as last admission (6) DVT prophylaxis Current Visit: No Status: Acute Plan to address problem: Lovenox initiated and GI prophylaxis initiated Advance Directives: Yes (Full code) Plan of care discussed with patient/family: Yes
[2018-07-03] MEDS ORDERED: ZOFRAN IV PRN (21:29)
[2018-07-03] MEDS ORDERED: TYLENOL PO PRN (21:29)
[2018-07-03] MEDS ORDERED: SODIUM CHLORIDE FLUSH SYRINGE 10 ML IV PRN (21:29)
[2018-07-03] MEDS ORDERED: PERCOCET 5/325 PO PRN (21:29)
[2018-07-03] MEDS ORDERED: DILAUDID IV PRN (21:29)
[2018-07-03] MEDS: ZESTRIL PO SCH (22:21)
[2018-07-03] MEDS: ELIQUIS PO SCH (22:21)
[2018-07-03] MEDS: COREG PO SCH (22:21)
[2018-07-03] MEDS: K-DUR PO SCH (22:21)
[2018-07-03] MEDS: PEPCID PO SCH (22:21)
[2018-07-03] MEDS: SODIUM CHLORIDE FLUSH SYRINGE 10 ML IV SCH (22:22)
[2018-07-03] MEDS: HALFPRIN EC PO SCH (22:22)
[2018-07-04] MEDS: LASIX IV SCH ×2 (05:16→17:33)
[2018-07-04 06:22] LABS: Alanine Aminotransferase 39 units/L (7-56); Albumin 3.3 g/dL (3.9-5); BUN/Creatinine Ratio 21; Blood Urea Nitrogen 21 mg/dL (7-17); Calcium 8.8 mg/dL (8.4-10.2); Hemolysis Index 0
[2018-07-04 06:27] LABS: % Iron Saturation 6.11 %
[2018-07-04] MEDS: HALFPRIN EC PO SCH (09:14)
[2018-07-04] MEDS: PEPCID PO SCH ×2 (09:15→21:09)
[2018-07-04] MEDS: COREG PO SCH ×2 (09:15→21:09)
[2018-07-04] MEDS: ZESTRIL PO SCH (09:15)
[2018-07-04] MEDS: ELIQUIS PO SCH ×2 (09:16→21:08)
[2018-07-04] MEDS: SODIUM CHLORIDE FLUSH SYRINGE 10 ML IV SCH ×2 (09:17→21:09)
[2018-07-04] MEDS: K-DUR PO SCH ×2 (09:19→21:11)
--- NOTE | 2018-07-04 12:32 | Progress Note ---
Assessment and Plan Assessment and plan: Acute resp failure due to CHF exacerbation Admitted to [facility] supplemental Oxygen Acute on chronic systolic CHF EF 15-20% Lasix iv bid patient just discharged home from here 2 weeks ago but has not gone for follow up. She states she has been compliant with medications. Obesity. I counseled her on diet and exercise Full code status History Interval history: shortness of breath Hospitalist Physical - Physical exam Narrative exam: Gen: Not in acute distress, lying in bed,obese HEENT: Normocephalic, atraumatic Neck: supple, no JVD Heart: S1 and S2 reg, no murmurs, rubs or gallop Lungs:Bilateral basal crackles Abd: soft, non tender, non distended, normal BS Ext: No edema, no clubbing, no cyanosis, Neuro: AAO x 3, no focal signs, moves all ext Psych:Normal mood - Constitutional Vitals: Temp Pulse Resp BP Pulse Ox 97.9 F 86 18 137/86 98 07/04/18 11:44 07/04/18 11:44 07/04/18 11:44 07/04/18 11:44 07/04/18 11:44 General appearance: Present: mild distress, well-nourished Results - Labs CBC & Chem 7: 07/03/18 17:42 07/04/18 04:48 Labs: Laboratory Last Values WBC 7.0 K/mm3 (4.5-11.0) 07/03/18 17:42 RBC 3.90 M/mm3 (3.65-5.03) 07/03/18 17:42 Hgb 9.4 gm/dl (10.1-14.3) L 07/03/18 17:42 Hct 29.6 % (30.3-42.9) L 07/03/18 17:42 MCV 76 fl (79-97) L 07/03/18 17:42 MCH 24 pg (28-32) L 07/03/18 17:42 MCHC 32 % (30-34) 07/03/18 17:42 RDW 17.7 % (13.2-15.2) H 07/03/18 17:42 Plt Count 307 K/mm3 (140-440) 07/03/18 17:42 Lymph % (Auto) 41.0 % (13.4-35.0) H 07/03/18 17:42 [place] % (Auto) 9.5 % (0.0-7.3) H 07/03/18 17:42 Eos % (Auto) 1.8 % (0.0-4.3) 07/03/18 17:42 Baso % (Auto) 0.3 % (0.0-1.8) 07/03/18 17:42 Lymph # 2.9 K/mm3 (1.2-5.4) 07/03/18 17:42 [place] # 0.7 K/mm3 (0.0-0.8) 07/03/18 17:42 Eos # 0.1 K/mm3 (0.0-0.4) 07/03/18 17:42 Baso # 0.0 K/mm3 (0.0-0.1) 07/03/18 17:42 Seg Neutrophils % 47.4 % (40.0-70.0) 07/03/18 17:42 Seg Neutrophils # 3.3 K/mm3 (1.8-7.7) 07/03/18 17:42 PT 15.0 Sec. (12.2-14.9) H 07/03/18 17:42 INR 1.11 (0.87-1.13) 07/03/18 17:42 APTT 29.1 Sec. (24.2-36.6) 07/03/18 17:42 D-Dimer 265.65 ng/mlDDU (0-234) H 07/03/18 17:42 Sodium 141 mmol/L (137-145) 07/04/18 04:48 Potassium 4.1 mmol/L (3.6-5.0) 07/04/18 04:48 Chloride 102.3 mmol/L (98-107) 07/04/18 04:48 Carbon Dioxide 27 mmol/L (22-30) 07/04/18 04:48 Anion Gap 16 mmol/L 07/04/18 04:48 BUN 21 mg/dL (7-17) H 07/04/18 04:48 Creatinine 1.0 mg/dL (0.7-1.2) 07/04/18 04:48 Estimated GFR > 60 ml/min 07/04/18 04:48 BUN/Creatinine Ratio 21 % 07/04/18 04:48 Glucose 92 mg/dL (65-100) 07/04/18 04:48 Hemoglobin A1c 5.8 % (4-6) 07/03/18 17:42 Calcium 8.8 mg/dL (8.4-10.2) 07/04/18 04:48 Iron 25 ug/dL (37-170) L 07/04/18 04:48 TIBC 409 mcg/dL (250-450) 07/04/18 04:48 % Saturation 6.11 % 07/04/18 04:48 Transferrin 336 mg/dl (192-382) 07/04/18 04:48 Total Bilirubin 0.30 mg/dL (0.1-1.2) 07/04/18 04:48 AST 43 units/L (5-40) H 07/04/18 04:48 ALT 39 units/L (7-56) 07/04/18 04:48 Alkaline Phosphatase 47 units/L (35-129) 07/04/18 04:48 Troponin T < 0.010 ng/mL (0.00-0.029) 07/03/18 23:27 NT-Pro-B Natriuret Pep 5062 pg/mL (0-900) H 07/03/18 17:42 Total Protein 6.3 g/dL (6.3-8.2) 07/04/18 04:48 Albumin 3.3 g/dL (3.9-5) L 07/04/18 04:48 Albumin/Globulin Ratio 1.1 % 07/04/18 04:48 Vitamin B12 1037 pg/mL (211-911) H 07/04/18 04:48 Active Medications - Current Medications Current Medications: Generic Name Dose Route Start Last Admin Trade Name Freq PRN Reason Stop Dose Admin Acetaminophen 650 mg 07/03/18 21:29 Tylenol PO Q4H PRN Pain MILD(1-3)/Fever >100.5/MERA Apixaban 5 mg 07/03/18 22:00 07/04/18 09:16 Eliquis PO Not Given Q12HR [facility] Protocol Aspirin 81 mg 07/03/18 22:00 07/04/18 09:14 Halfprin Ec PO 81 mg DAILY TERESA Administration Atorvastatin Calcium 20 mg 07/04/18 10:00 07/04/18 09:15 Lipitor PO 20 mg DAILY TERESA Administration Carvedilol 6.25 mg 07/03/18 22:00 07/04/18 09:15 Coreg PO 6.25 mg BID TERESA Administration Famotidine 20 mg 07/03/18 22:00 07/04/18 09:15 Pepcid PO 20 mg BID TERESA Administration Furosemide 40 mg 07/04/18 06:00 07/04/18 05:16 Lasix IV 40 mg 0600,1800 TERESA Administration Hydromorphone HCl 0.5 mg 07/03/18 21:29 Dilaudid IV Q3H PRN Pain , Severe (7-10) Lisinopril 20 mg 07/03/18 22:00 07/04/18 09:15 Zestril PO 20 mg QDAY TERESA Administration Ondansetron HCl 4 mg 07/03/18 21:29 Zofran IV Q8H PRN Nausea And Vomiting Oxycodone/Acetaminophen 1 tab 07/03/18 21:29 07/03/18 22:22 Percocet 5/325 PO 1 tab Q6H PRN Administration Pain, Moderate (4-6) Potassium Chloride 20 meq 07/03/18 22:00 07/04/18 09:19 K-Dur PO 20 meq Q12H TERESA Administration Sodium Chloride 10 ml 07/03/18 22:00 07/04/18 09:17 Sodium Chloride Flush Syringe 10 Ml IV 10 ml BID TERESA Administration Sodium Chloride 10 ml 07/03/18 21:29 Sodium Chloride Flush Syringe 10 Ml IV PRN PRN LINE FLUSH
--- NOTE | 2018-07-04 13:37 | Consultation ---
History of Present Illness Consult date: 07/04/18 Consult reason: shortness of breath History of present illness: Patient is a 63 year old woman who presented with shortness of breath. Of note, patient was just here 2 weeks ago with similar complaints. Chest x-ray reports cardiomegaly with interstitial edema. There is no evidence of pulmonary embolism but reports of right middle and lower lobes infiltrates suggestive of pneumonia by chest CTA. Patient has a medical history of hypertension, nonischemic cardiomyopathy and chronic systolic heart failure. Patient was previously recommended for a cardiac defibrillator in the past, which she declined. She also has a history of paroxysmal atrial fibrillation, previously recommended eliquis for oral anticoagulation therapy. Her latest cardiac workup was done at [facility] early April. The echocardiogram reports a decreased systolic function, ejection fraction 15-20%, and the thallium showed no ischemia, consistent with a nonischemic cardiomyopathy. Medications and Allergies Allergies Allergy/AdvReac Type Severity Reaction Status Date / Time No Known Allergies Allergy Unverified 06/08/18 07:43 Home Medications Medication Instructions Recorded Confirmed Last Taken Type Aspirin [Adult Aspirin] 81 mg PO DAILY 06/19/18 07/03/18 07/03/18 History AtorvaSTATin [Lipitor] 20 mg PO DAILY 06/19/18 07/03/18 07/03/18 History Carvedilol [Coreg] 6.25 mg PO BID 06/19/18 07/03/18 07/03/18 History Furosemide [Lasix TAB] 40 mg PO BID 06/19/18 07/03/18 07/03/18 History Lisinopril [Zestril TAB] 20 mg PO QDAY 06/19/18 07/03/18 07/03/18 History Apixaban [Eliquis] 5 mg PO Q12HR #60 tablet 06/22/18 07/03/18 07/03/18 Rx Famotidine [Pepcid] 20 mg PO BID #60 tablet 06/22/18 07/03/18 07/03/18 Rx Active Meds: Active Medications Acetaminophen (Tylenol) 650 mg PO Q4H PRN PRN Reason: Pain MILD(1-3)/Fever >100.5/MERA Apixaban (Eliquis) 5 mg PO Q12HR [facility]A; Protocol Last Admin: 07/04/18 09:16 Dose: Not Given Documented by: Aspirin (Halfprin Ec) 81 mg PO DAILY [facility] Last Admin: 07/04/18 09:14 Dose: 81 mg Documented by: Atorvastatin Calcium (Lipitor) 20 mg PO DAILY [facility] Last Admin: 07/04/18 09:15 Dose: 20 mg Documented by: Carvedilol (Coreg) 6.25 mg PO BID [facility] Last Admin: 07/04/18 09:15 Dose: 6.25 mg Documented by: Famotidine (Pepcid) 20 mg PO BID [facility] Last Admin: 07/04/18 09:15 Dose: 20 mg Documented by: Furosemide (Lasix) 40 mg IV 0600,1800 [facility] Last Admin: 07/04/18 05:16 Dose: 40 mg Documented by: Hydromorphone HCl (Dilaudid) 0.5 mg IV Q3H PRN PRN Reason: Pain , Severe (7-10) Lisinopril (Zestril) 20 mg PO QDAY [facility] Last Admin: 07/04/18 09:15 Dose: 20 mg Documented by: Ondansetron HCl (Zofran) 4 mg IV Q8H PRN PRN Reason: Nausea And Vomiting Oxycodone/Acetaminophen (Percocet 5/325) 1 tab PO Q6H PRN PRN Reason: Pain, Moderate (4-6) Last Admin: 07/03/18 22:22 Dose: 1 tab Documented by: Potassium Chloride (K-Dur) 20 meq PO Q12H [facility] Last Admin: 07/04/18 09:19 Dose: 20 meq Documented by: Sodium Chloride (Sodium Chloride Flush Syringe 10 Ml) 10 ml IV BID [facility] Last Admin: 07/04/18 09:17 Dose: 10 ml Documented by: Sodium Chloride (Sodium Chloride Flush Syringe 10 Ml) 10 ml IV PRN PRN PRN Reason: LINE FLUSH Physical Examination Vital Signs Pulse Pulse Ox 97 H 92 07/03/18 16:44 07/03/18 16:44 General appearance: no acute distress HEENT: Positive: PERRL Neck: Positive: trachea midline Cardiac: Positive: Reg Rate and Rhythm Lungs: Positive: Decreased Breath Sounds Neuro: Positive: Grossly Intact Extremities: Absent: edema Results 07/03/18 17:42 07/04/18 04:48 Cardiac Enzymes 07/04/18 Range/Units 04:48 AST 43 H (5-40) units/L Coagulation 07/03/18 Range/Units 17:42 PT 15.0 H (12.2-14.9) Sec. INR 1.11 (0.87-1.13) APTT 29.1 (24.2-36.6) Sec. CBC 07/03/18 Range/Units 17:42 WBC 7.0 (4.5-11.0) K/mm3 RBC 3.90 (3.65-5.03) M/mm3 Hgb 9.4 L (10.1-14.3) gm/dl Hct 29.6 L (30.3-42.9) % Plt Count 307 (140-440) K/mm3 Lymph # 2.9 (1.2-5.4) K/mm3 [place] # 0.7 (0.0-0.8) K/mm3 Eos # 0.1 (0.0-0.4) K/mm3 Baso # 0.0 (0.0-0.1) K/mm3 Comprehensive Metabolic Panel 07/03/18 07/04/18 Range/Units 17:42 04:48 Sodium 139 141 (137-145) mmol/L Potassium 4.2 4.1 (3.6-5.0) mmol/L Chloride 103.3 102.3 (98-107) mmol/L Carbon Dioxide 24 27 (22-30) mmol/L BUN 25 H 21 H (7-17) mg/dL Creatinine 0.9 1.0 (0.7-1.2) mg/dL Glucose 106 H 92 (65-100) mg/dL Calcium 8.9 8.8 (8.4-10.2) mg/dL AST 43 H (5-40) units/L ALT 39 (7-56) units/L Alkaline Phosphatase 47 (35-129) units/L Total Protein 6.3 (6.3-8.2) g/dL Albumin 3.3 L (3.9-5) g/dL Assessment and Plan Chronic systolic heart failure Pneumonia Hypertension Nonischemic cardiomyopathy Paroxysmal Afib on eliquis for oral anticoagulation therapy Records from [facility] 04/2018: echocardiogram reported low ventricular systolic ejection fraction 15-20% thallium showed no ischemia, consistent with a nonischemic cardiomyopathy. Continue medical therapy for chronic systolic heart failure and paroxysmal aFib.
[2018-07-04] MEDS: MILRINONE-D5W 20 MG/100 ML 20 MG/100 ML BAG IV SCH (21:26)
[2018-07-05] MEDS: LASIX IV SCH ×2 (07:45→17:58)
[2018-07-05] MEDS: MILRINONE-D5W 20 MG/100 ML 20 MG/100 ML BAG IV SCH ×2 (08:33→17:58)
[2018-07-05] MEDS: PEPCID PO SCH ×2 (10:18→21:39)
[2018-07-05] MEDS: COREG PO SCH ×2 (10:18→21:38)
[2018-07-05] MEDS: HALFPRIN EC PO SCH (10:18)
[2018-07-05] MEDS: ELIQUIS PO SCH ×2 (10:18→21:40)
[2018-07-05] MEDS: SODIUM CHLORIDE FLUSH SYRINGE 10 ML IV SCH ×2 (10:19→21:40)
[2018-07-05] MEDS: ZESTRIL PO SCH (10:19)
--- NOTE | 2018-07-05 10:29 | Progress Note ---
Assessment and Plan Chronic systolic heart failure Noncompliant with dietary indiscretion Hypertension Nonischemic cardiomyopathy Paroxysmal Afib on eliquis for oral anticoagulation therapy Records from [facility] 04/2018: echocardiogram reported low ventricular systolic ejection fraction 15-20% thallium showed no ischemia, consistent with a nonischemic cardiomyopathy. Recommendations: Intravenous diuretic therapy, afterload agents, beta blockers, oral antiplatelets and a trial of intravenous milrinone therapy. Fluid and salt restricted diet. Strict I's and O's. Daily weights. Echocardiogram for left ventricular function and valvular function assessment. Subjective Date of service: 07/05/18 Interval history: Patient has no complaints. Reports her breathing is improving. Objective Vital Signs Temp Pulse Resp BP Pulse Ox 07/05/18 10:19 100 H 118/68 07/05/18 10:18 100 H 118/68 07/05/18 06:00 81 07/05/18 04:10 98.3 F 85 12 120/76 99 07/04/18 23:13 98.4 F 89 16 125/82 97 07/04/18 19:38 98.5 F 87 12 139/78 99 07/04/18 15:45 97.9 F 79 20 126/85 99 07/04/18 11:52 98.3 F 98 H 20 156/82 99 07/04/18 11:44 97.9 F 86 18 137/86 98 - Physical Examination General: No Apparent Distress HEENT: Positive: PERRL Neck: Positive: trachea midline Cardiac: Positive: Reg Rate and Rhythm Lungs: Positive: Decreased Breath Sounds Neuro: Positive: Grossly Intact Extremities: Absent: edema
[2018-07-05] MEDS: K-DUR PO SCH ×2 (12:00→21:39)
--- NOTE | 2018-07-05 12:41 | Progress Note ---
Assessment and Plan Assessment and plan: Acute resp failure due to CHF exacerbation Admitted to [facility] supplemental Oxygen Acute on chronic systolic CHF EF 15-20% Lasix iv bid started on Milrinone drip patient just discharged home from here less than 2 weeks ago but has not gone for follow up. She states she has been compliant with medications. Obesity. I counseled her on diet and exercise Full code status History Interval history: Still has shortness of breath No chest pain Hospitalist Physical - Physical exam Narrative exam: Gen: Not in acute distress, lying in bed,obese HEENT: Normocephalic, atraumatic Neck: supple, no JVD Heart: S1 and S2 reg, no murmurs, rubs or gallop Lungs:Bilateral basal crackles Abd: soft, non tender, non distended, normal BS Ext: No edema, no clubbing, no cyanosis, Neuro: AAO x 3, no focal signs, moves all ext Psych:Normal mood - Constitutional Vitals: Temp Pulse Resp BP Pulse Ox 98.3 F 100 H 18 118/68 96 07/05/18 08:00 07/05/18 10:19 07/05/18 08:00 07/05/18 10:07/05/18 08:00 General appearance: Present: obese Results - Labs CBC & Chem 7: 07/03/18 17:42 07/04/18 04:48 Labs: Laboratory Last Values WBC 7.0 K/mm3 (4.5-11.0) 07/03/18 17:42 RBC 3.90 M/mm3 (3.65-5.03) 07/03/18 17:42 Hgb 9.4 gm/dl (10.1-14.3) L 07/03/18 17:42 Hct 29.6 % (30.3-42.9) L 07/03/18 17:42 MCV 76 fl (79-97) L 07/03/18 17:42 MCH 24 pg (28-32) L 07/03/18 17:42 MCHC 32 % (30-34) 07/03/18 17:42 RDW 17.7 % (13.2-15.2) H 07/03/18 17:42 Plt Count 307 K/mm3 (140-440) 07/03/18 17:42 Lymph % (Auto) 41.0 % (13.4-35.0) H 07/03/18 17:42 [place] % (Auto) 9.5 % (0.0-7.3) H 07/03/18 17:42 Eos % (Auto) 1.8 % (0.0-4.3) 07/03/18 17:42 Baso % (Auto) 0.3 % (0.0-1.8) 07/03/18 17:42 Lymph # 2.9 K/mm3 (1.2-5.4) 07/03/18 17:42 [place] # 0.7 K/mm3 (0.0-0.8) 07/03/18 17:42 Eos # 0.1 K/mm3 (0.0-0.4) 07/03/18 17:42 Baso # 0.0 K/mm3 (0.0-0.1) 07/03/18 17:42 Seg Neutrophils % 47.4 % (40.0-70.0) 07/03/18 17:42 Seg Neutrophils # 3.3 K/mm3 (1.8-7.7) 07/03/18 17:42 PT 15.0 Sec. (12.2-14.9) H 07/03/18 17:42 INR 1.11 (0.87-1.13) 07/03/18 17:42 APTT 29.1 Sec. (24.2-36.6) 07/03/18 17:42 D-Dimer 265.65 ng/mlDDU (0-234) H 07/03/18 17:42 Sodium 141 mmol/L (137-145) 07/04/18 04:48 Potassium 4.1 mmol/L (3.6-5.0) 07/04/18 04:48 Chloride 102.3 mmol/L (98-107) 07/04/18 04:48 Carbon Dioxide 27 mmol/L (22-30) 07/04/18 04:48 Anion Gap 16 mmol/L 07/04/18 04:48 BUN 21 mg/dL (7-17) H 07/04/18 04:48 Creatinine 1.0 mg/dL (0.7-1.2) 07/04/18 04:48 Estimated GFR > 60 ml/min 07/04/18 04:48 BUN/Creatinine Ratio 21 % 07/04/18 04:48 Glucose 92 mg/dL (65-100) 07/04/18 04:48 Hemoglobin A1c 5.8 % (4-6) 07/03/18 17:42 Calcium 8.8 mg/dL (8.4-10.2) 07/04/18 04:48 Iron 25 ug/dL (37-170) L 07/04/18 04:48 TIBC 409 mcg/dL (250-450) 07/04/18 04:48 % Saturation 6.11 % 07/04/18 04:48 Transferrin 336 mg/dl (192-382) 07/04/18 04:48 Total Bilirubin 0.30 mg/dL (0.1-1.2) 07/04/18 04:48 AST 43 units/L (5-40) H 07/04/18 04:48 ALT 39 units/L (7-56) 07/04/18 04:48 Alkaline Phosphatase 47 units/L (35-129) 07/04/18 04:48 Troponin T < 0.010 ng/mL (0.00-0.029) 07/03/18 23:27 NT-Pro-B Natriuret Pep 5062 pg/mL (0-900) H 07/03/18 17:42 Total Protein 6.3 g/dL (6.3-8.2) 07/04/18 04:48 Albumin 3.3 g/dL (3.9-5) L 07/04/18 04:48 Albumin/Globulin Ratio 1.1 % 07/04/18 04:48 Vitamin B12 1037 pg/mL (211-911) H 07/04/18 04:48 Active Medications - Current Medications Current Medications: Generic Name Dose Route Start Last Admin Trade Name Freq PRN Reason Stop Dose Admin Acetaminophen 650 mg 07/03/18 21:29 Tylenol PO Q4H PRN Pain MILD(1-3)/Fever >100.5/MERA Apixaban 5 mg 07/03/18 22:00 07/05/18 10:18 Eliquis PO 5 mg Q12HR [facility]A Administration Protocol Aspirin 81 mg 07/03/18 22:00 07/05/18 10:18 Halfprin Ec PO 81 mg DAILY [facility] Administration Atorvastatin Calcium 20 mg 07/04/18 10:00 07/05/18 10:18 Lipitor PO 20 mg DAILY [facility] Administration Carvedilol 6.25 mg 07/03/18 22:00 07/05/18 10:18 Coreg PO 6.25 mg BID [facility] Administration Famotidine 20 mg 07/03/18 22:00 07/05/18 10:18 Pepcid PO 20 mg BID [facility] Administration Furosemide 40 mg 07/04/18 06:00 07/05/18 07:45 Lasix IV 40 mg 0600,1800 [facility] Administration Hydromorphone HCl 0.5 mg 07/03/18 21:29 Dilaudid IV Q3H PRN Pain , Severe (7-10) Milrinone Lactate/Dextrose 20 mg in 100 mls @ 10.204 mls/hr 07/04/18 18:00 07/05/18 08:33 Milrinone-D5w 20 Mg/100 Ml IV 07/07/18 17:59 0.375 mcg/kg/min TITR TERESA 10.204 mls/hr Administration 0.375 MCG/KG/MIN Lisinopril 20 mg 07/03/18 22:00 07/05/18 10:19 Zestril PO 20 mg QDAY [facility] Administration Ondansetron HCl 4 mg 07/03/18 21:29 Zofran IV Q8H PRN Nausea And Vomiting Oxycodone/Acetaminophen 1 tab 07/03/18 21:29 07/03/18 22:22 Percocet 5/325 PO 1 tab Q6H PRN Administration Pain, Moderate (4-6) Potassium Chloride 20 meq 07/03/18 22:00 07/05/18 12:00 K-Dur PO 20 meq Q12H [facility]A Administration Sodium Chloride 10 ml 07/03/18 22:00 07/05/18 10:19 Sodium Chloride Flush Syringe 10 Ml IV 10 ml BID [facility] Administration Sodium Chloride 10 ml 07/03/18 21:29 Sodium Chloride Flush Syringe 10 Ml IV PRN PRN LINE FLUSH
[2018-07-06] MEDS: MILRINONE-D5W 20 MG/100 ML 20 MG/100 ML BAG IV SCH ×3 (03:51→23:18)
[2018-07-06] MEDS: LASIX IV SCH (05:58)
[2018-07-06 06:12] LABS: BUN/Creatinine Ratio 13; Blood Urea Nitrogen 12 mg/dL (7-17); Calcium 8.7 mg/dL (8.4-10.2); Hemolysis Index 13
[2018-07-06] MEDS: PEPCID PO SCH ×2 (09:59→22:25)
[2018-07-06] MEDS: HALFPRIN EC PO SCH (09:59)
[2018-07-06] MEDS: K-DUR PO SCH ×2 (09:59→22:26)
[2018-07-06] MEDS: ELIQUIS PO SCH ×2 (09:59→22:25)
[2018-07-06] MEDS: ZESTRIL PO SCH (10:00)
[2018-07-06] MEDS: COREG PO SCH ×2 (10:00→22:25)
[2018-07-06] MEDS: SODIUM CHLORIDE FLUSH SYRINGE 10 ML IV SCH ×2 (10:01→22:27)
--- NOTE | 2018-07-06 17:15 | Progress Note ---
Assessment and Plan Assessment and plan: Acute resp failure due to CHF exacerbation Admitted to [facility] supplemental Oxygen Acute on chronic systolic CHF EF 15-20% Lasix iv bid Continue Milrinone drip patient just discharged home from here less than 2 weeks ago but has not gone for follow up. She states she has been compliant with medications. Obesity. I counseled her on diet and exercise Full code status History Interval history: Less shortness of breath No chest pain Hospitalist Physical - Physical exam Narrative exam: Gen: Not in acute distress, lying in bed,obese HEENT: Normocephalic, atraumatic Neck: supple, no JVD Heart: S1 and S2 reg, no murmurs, rubs or gallop Lungs:Bilateral basal crackles Abd: soft, non tender, non distended, normal BS Ext: No edema, no clubbing, no cyanosis, Neuro: AAO x 3, no focal signs, moves all ext Psych:Normal mood - Constitutional Vitals: Temp Pulse Resp BP Pulse Ox 98.2 F 93 H 18 115/62 93 07/06/18 15:59 07/06/18 15:59 07/06/18 15:59 07/06/18 15:59 07/06/18 15:59 General appearance: Present: obese Results - Labs CBC & Chem 7: 07/03/18 17:42 07/06/18 04:47 Labs: Laboratory Last Values WBC 7.0 K/mm3 (4.5-11.0) 07/03/18 17:42 RBC 3.90 M/mm3 (3.65-5.03) 07/03/18 17:42 Hgb 9.4 gm/dl (10.1-14.3) L 07/03/18 17:42 Hct 29.6 % (30.3-42.9) L 07/03/18 17:42 MCV 76 fl (79-97) L 07/03/18 17:42 MCH 24 pg (28-32) L 07/03/18 17:42 MCHC 32 % (30-34) 07/03/18 17:42 RDW 17.7 % (13.2-15.2) H 07/03/18 17:42 Plt Count 307 K/mm3 (140-440) 07/03/18 17:42 Lymph % (Auto) 41.0 % (13.4-35.0) H 07/03/18 17:42 [place] % (Auto) 9.5 % (0.0-7.3) H 07/03/18 17:42 Eos % (Auto) 1.8 % (0.0-4.3) 07/03/18 17:42 Baso % (Auto) 0.3 % (0.0-1.8) 07/03/18 17:42 Lymph # 2.9 K/mm3 (1.2-5.4) 07/03/18 17:42 [place] # 0.7 K/mm3 (0.0-0.8) 07/03/18 17:42 Eos # 0.1 K/mm3 (0.0-0.4) 07/03/18 17:42 Baso # 0.0 K/mm3 (0.0-0.1) 07/03/18 17:42 Seg Neutrophils % 47.4 % (40.0-70.0) 07/03/18 17:42 Seg Neutrophils # 3.3 K/mm3 (1.8-7.7) 07/03/18 17:42 PT 15.0 Sec. (12.2-14.9) H 07/03/18 17:42 INR 1.11 (0.87-1.13) 07/03/18 17:42 APTT 29.1 Sec. (24.2-36.6) 07/03/18 17:42 D-Dimer 265.65 ng/mlDDU (0-234) H 07/03/18 17:42 Sodium 142 mmol/L (137-145) 07/06/18 04:47 Potassium 3.9 mmol/L (3.6-5.0) 07/06/18 04:47 Chloride 102.4 mmol/L (98-107) 07/06/18 04:47 Carbon Dioxide 31 mmol/L (22-30) H 07/06/18 04:47 Anion Gap 13 mmol/L 07/06/18 04:47 BUN 12 mg/dL (7-17) 07/06/18 04:47 Creatinine 0.9 mg/dL (0.7-1.2) 07/06/18 04:47 Estimated GFR > 60 ml/min 07/06/18 04:47 BUN/Creatinine Ratio 13 % 07/06/18 04:47 Glucose 129 mg/dL (65-100) H 07/06/18 04:47 Hemoglobin A1c 5.8 % (4-6) 07/03/18 17:42 Calcium 8.7 mg/dL (8.4-10.2) 07/06/18 04:47 Iron 25 ug/dL (37-170) L 07/04/18 04:48 TIBC 409 mcg/dL (250-450) 07/04/18 04:48 % Saturation 6.11 % 07/04/18 04:48 Transferrin 336 mg/dl (192-382) 07/04/18 04:48 Total Bilirubin 0.30 mg/dL (0.1-1.2) 07/04/18 04:48 AST 43 units/L (5-40) H 07/04/18 04:48 ALT 39 units/L (7-56) 07/04/18 04:48 Alkaline Phosphatase 47 units/L (35-129) 07/04/18 04:48 Troponin T < 0.010 ng/mL (0.00-0.029) 07/03/18 23:27 NT-Pro-B Natriuret Pep 5062 pg/mL (0-900) H 07/03/18 17:42 Total Protein 6.3 g/dL (6.3-8.2) 07/04/18 04:48 Albumin 3.3 g/dL (3.9-5) L 07/04/18 04:48 Albumin/Globulin Ratio 1.1 % 07/04/18 04:48 Vitamin B12 1037 pg/mL (211-911) H 07/04/18 04:48 Active Medications - Current Medications Current Medications: Generic Name Dose Route Start Last Admin Trade Name Freq PRN Reason Stop Dose Admin Acetaminophen 650 mg 07/03/18 21:29 Tylenol PO Q4H PRN Pain MILD(1-3)/Fever >100.5/MERA Apixaban 5 mg 07/03/18 22:00 07/06/18 09:59 Eliquis PO 5 mg Q12HR [facility]A Administration Protocol Aspirin 81 mg 07/03/18 22:00 07/06/18 09:59 Halfprin Ec PO 81 mg DAILY [facility] Administration Atorvastatin Calcium 20 mg 07/04/18 10:00 07/06/18 09:59 Lipitor PO 20 mg DAILY [facility] Administration Carvedilol 6.25 mg 07/03/18 22:00 07/06/18 10:00 Coreg PO 6.25 mg BID [facility] Administration Famotidine 20 mg 07/03/18 22:00 07/06/18 09:59 Pepcid PO 20 mg BID [facility] Administration Furosemide 40 mg 07/04/18 06:00 07/06/18 05:58 Lasix IV 40 mg 0600,1800 [facility] Administration Hydromorphone HCl 0.5 mg 07/03/18 21:29 Dilaudid IV Q3H PRN Pain , Severe (7-10) Milrinone Lactate/Dextrose 20 mg in 100 mls @ 10.204 mls/hr 07/04/18 18:00 07/06/18 13:37 Milrinone-D5w 20 Mg/100 Ml IV 07/07/18 17:59 0.375 mcg/kg/min TITR [facility] 10.204 mls/hr Administration 0.375 MCG/KG/MIN Lisinopril 20 mg 07/03/18 22:00 07/06/18 10:00 Zestril PO 20 mg QDAY [facility] Administration Ondansetron HCl 4 mg 07/03/18 21:29 Zofran IV Q8H PRN Nausea And Vomiting Oxycodone/Acetaminophen 1 tab 07/03/18 21:29 07/03/18 22:22 Percocet 5/325 PO 1 tab Q6H PRN Administration Pain, Moderate (4-6) Potassium Chloride 20 meq 07/03/18 22:00 07/06/18 09:59 K-Dur PO 20 meq Q12H [facility] Administration Sodium Chloride 10 ml 07/03/18 22:00 07/06/18 10:01 Sodium Chloride Flush Syringe 10 Ml IV 10 ml BID [facility] Administration Sodium Chloride 10 ml 07/03/18 21:29 Sodium Chloride Flush Syringe 10 Ml IV PRN PRN LINE FLUSH
[2018-07-07] MEDS: LASIX IV SCH (06:02)
[2018-07-07] MEDS: ZESTRIL PO SCH (09:20)
[2018-07-07] MEDS: HALFPRIN EC PO SCH (09:20)
[2018-07-07] MEDS: ELIQUIS PO SCH (09:20)
[2018-07-07] MEDS: PEPCID PO SCH (09:20)
[2018-07-07] MEDS: COREG PO SCH (09:20)
[2018-07-07] MEDS: K-DUR PO SCH (09:26)
[2018-07-07] MEDS: MILRINONE-D5W 20 MG/100 ML 20 MG/100 ML BAG IV SCH (09:26)
[2018-07-07] MEDS: SODIUM CHLORIDE FLUSH SYRINGE 10 ML IV SCH (09:33)
--- NOTE | 2018-07-07 12:05 | Progress Note ---
Assessment and Plan Assessment and plan: Acute resp failure due to CHF exacerbation Admitted to [facility] supplemental Oxygen Acute on chronic systolic CHF EF 15-20% Lasix iv bid Continue Milrinone drip patient just discharged home from here less than 2 weeks ago but has not gone for follow up. She states she has been compliant with medications. Obesity. I counseled her on diet and exercise Full code status Doing better. hopefully dc home tomorrow. History Interval history: Less shortness of breath No chest pain Still on Milrinone drip Hospitalist Physical - Physical exam Narrative exam: Gen: Not in acute distress, lying in bed,obese HEENT: Normocephalic, atraumatic Neck: supple, no JVD Heart: S1 and S2 reg, no murmurs, rubs or gallop Lungs:Bilateral basal crackles Abd: soft, non tender, non distended, normal BS Ext: No edema, no clubbing, no cyanosis, Neuro: AAO x 3, no focal signs, moves all ext Psych:Normal mood - Constitutional Vitals: Temp Pulse Resp BP Pulse Ox 98.4 F 109 H 18 138/83 96 07/07/18 11:46 07/07/18 11:46 07/07/18 11:46 07/07/18 11:46 07/07/18 11:46 General appearance: Present: obese Results - Labs CBC & Chem 7: 07/03/18 17:42 07/06/18 04:47 Labs: Laboratory Last Values WBC 7.0 K/mm3 (4.5-11.0) 07/03/18 17:42 RBC 3.90 M/mm3 (3.65-5.03) 07/03/18 17:42 Hgb 9.4 gm/dl (10.1-14.3) L 07/03/18 17:42 Hct 29.6 % (30.3-42.9) L 07/03/18 17:42 MCV 76 fl (79-97) L 07/03/18 17:42 MCH 24 pg (28-32) L 07/03/18 17:42 MCHC 32 % (30-34) 07/03/18 17:42 RDW 17.7 % (13.2-15.2) H 07/03/18 17:42 Plt Count 307 K/mm3 (140-440) 07/03/18 17:42 Lymph % (Auto) 41.0 % (13.4-35.0) H 07/03/18 17:42 [place] % (Auto) 9.5 % (0.0-7.3) H 07/03/18 17:42 Eos % (Auto) 1.8 % (0.0-4.3) 07/03/18 17:42 Baso % (Auto) 0.3 % (0.0-1.8) 07/03/18 17:42 Lymph # 2.9 K/mm3 (1.2-5.4) 07/03/18 17:42 [place] # 0.7 K/mm3 (0.0-0.8) 07/03/18 17:42 Eos # 0.1 K/mm3 (0.0-0.4) 07/03/18 17:42 Baso # 0.0 K/mm3 (0.0-0.1) 07/03/18 17:42 Seg Neutrophils % 47.4 % (40.0-70.0) 07/03/18 17:42 Seg Neutrophils # 3.3 K/mm3 (1.8-7.7) 07/03/18 17:42 PT 15.0 Sec. (12.2-14.9) H 07/03/18 17:42 INR 1.11 (0.87-1.13) 07/03/18 17:42 APTT 29.1 Sec. (24.2-36.6) 07/03/18 17:42 D-Dimer 265.65 ng/mlDDU (0-234) H 07/03/18 17:42 Sodium 142 mmol/L (137-145) 07/06/18 04:47 Potassium 3.9 mmol/L (3.6-5.0) 07/06/18 04:47 Chloride 102.4 mmol/L (98-107) 07/06/18 04:47 Carbon Dioxide 31 mmol/L (22-30) H 07/06/18 04:47 Anion Gap 13 mmol/L 07/06/18 04:47 BUN 12 mg/dL (7-17) 07/06/18 04:47 Creatinine 0.9 mg/dL (0.7-1.2) 07/06/18 04:47 Estimated GFR > 60 ml/min 07/06/18 04:47 BUN/Creatinine Ratio 13 % 07/06/18 04:47 Glucose 129 mg/dL (65-100) H 07/06/18 04:47 Hemoglobin A1c 5.8 % (4-6) 07/03/18 17:42 Calcium 8.7 mg/dL (8.4-10.2) 07/06/18 04:47 Iron 25 ug/dL (37-170) L 07/04/18 04:48 TIBC 409 mcg/dL (250-450) 07/04/18 04:48 % Saturation 6.11 % 07/04/18 04:48 Transferrin 336 mg/dl (192-382) 07/04/18 04:48 Total Bilirubin 0.30 mg/dL (0.1-1.2) 07/04/18 04:48 AST 43 units/L (5-40) H 07/04/18 04:48 ALT 39 units/L (7-56) 07/04/18 04:48 Alkaline Phosphatase 47 units/L (35-129) 07/04/18 04:48 Troponin T < 0.010 ng/mL (0.00-0.029) 07/03/18 23:27 NT-Pro-B Natriuret Pep 5062 pg/mL (0-900) H 07/03/18 17:42 Total Protein 6.3 g/dL (6.3-8.2) 07/04/18 04:48 Albumin 3.3 g/dL (3.9-5) L 07/04/18 04:48 Albumin/Globulin Ratio 1.1 % 07/04/18 04:48 Vitamin B12 1037 pg/mL (211-911) H 07/04/18 04:48 Active Medications - Current Medications Current Medications: Generic Name Dose Route Start Last Admin Trade Name Freq PRN Reason Stop Dose Admin Acetaminophen 650 mg 07/03/18 21:29 Tylenol PO Q4H PRN Pain MILD(1-3)/Fever >100.5/MERA Apixaban 5 mg 07/03/18 22:00 07/07/18 09:20 Eliquis PO 5 mg Q12HR [facility] Administration Protocol Aspirin 81 mg 07/03/18 22:00 07/07/18 09:20 Halfprin Ec PO 81 mg DAILY [facility] Administration Atorvastatin Calcium 20 mg 07/04/18 10:00 07/07/18 09:20 Lipitor PO 20 mg DAILY [facility] Administration Carvedilol 6.25 mg 07/03/18 22:00 07/07/18 09:20 Coreg PO 6.25 mg BID [facility]A Administration Famotidine 20 mg 07/03/18 22:00 07/07/18 09:20 Pepcid PO 20 mg BID TERESA Administration Furosemide 40 mg 07/04/18 06:00 07/07/18 06:02 Lasix IV 40 mg 0600,1800 TERESA Administration Hydromorphone HCl 0.5 mg 07/03/18 21:29 Dilaudid IV Q3H PRN Pain , Severe (7-10) Milrinone Lactate/Dextrose 20 mg in 100 mls @ 10.204 mls/hr 07/04/18 18:00 07/07/18 09:26 Milrinone-D5w 20 Mg/100 Ml IV 07/07/18 17:59 0.375 mcg/kg/min TITR TERESA 10.204 mls/hr Administration 0.375 MCG/KG/MIN Lisinopril 20 mg 07/03/18 22:00 07/07/18 09:20 Zestril PO 20 mg QDAY TERESA Administration Ondansetron HCl 4 mg 07/03/18 21:29 Zofran IV Q8H PRN Nausea And Vomiting Oxycodone/Acetaminophen 1 tab 07/03/18 21:29 07/03/18 22:22 Percocet 5/325 PO 1 tab Q6H PRN Administration Pain, Moderate (4-6) Potassium Chloride 20 meq 07/03/18 22:00 07/07/18 09:26 K-Dur PO 20 meq Q12H TERESA Administration Sodium Chloride 10 ml 07/03/18 22:00 07/07/18 09:33 Sodium Chloride Flush Syringe 10 Ml IV 10 ml BID TERESA Administration Sodium Chloride 10 ml 07/03/18 21:29 Sodium Chloride Flush Syringe 10 Ml IV PRN PRN LINE FLUSH
--- NOTE | 2018-07-07 12:19 | Progress Note ---
Assessment and Plan - Patient Problems (1) Acute on chronic systolic (congestive) heart failure Current Visit: Yes Status: Acute Plan to address problem: Patient is stable for cardiac discharge. We will stop potassium, and add spironolactone 25 mg daily to her regimen of furosemide, lisinopril, carvedilol and aspirin. Strict salt restricted diet, outpatient cardiology follow-up in 7 days. Subjective Date of service: 07/07/18 Interval history: The patient looks and feels comfortable, shortness of breath has resolved, edema has resolved. Echocardiogram shows left ventricular ejection fraction of 15%, moderate to severe mitral regurgitation. Objective Vital Signs Temp Pulse Pulse Pulse Pulse Resp BP 07/07/18 11:46 98.4 F 109 H 18 138/83 07/07/18 07:57 98.9 F 106 H 18 135/91 07/07/18 04:37 98.0 F 99 H 18 125/80 07/06/18 23:40 98.0 F 91 H 18 131/75 07/06/18 22:25 89 139/82 07/06/18 20:49 98.6 F 95 H 18 139/87 07/06/18 20:00 91 H 91 H 89 89 20 07/06/18 15:59 98.2 F 93 H 18 115/62 Pulse Ox 07/07/18 11:46 96 07/07/18 07:57 97 07/07/18 04:37 95 07/06/18 23:40 96 07/06/18 22:25 07/06/18 20:49 96 07/06/18 20:00 93 07/06/18 15:59 93 - Physical Examination General: Appears Well, No Apparent Distress HEENT: Positive: PERRL Neck: Positive: trachea midline Cardiac: Positive: Reg Rate and Rhythm Lungs: Positive: Decreased Breath Sounds Neuro: Positive: Grossly Intact Abdomen: Positive: Soft Skin: Positive: Clear Extremities: Absent: edema - Imaging and Cardiology EKG: report reviewed
[2018-07-07] MEDS ORDERED: ALDACTONE PO SCH (13:00)
--- NOTE | 2018-07-07 14:50 | Discharge Summary ---
Providers - Providers Date of Admission: 07/03/18 19:27 Date of discharge: 07/07/18 Attending physician: ANA TOBIN 07/04/18 12:32 Consult to Physician [CONS] Routine Comment: Consulting Provider: KENNEDY GAONA Physician Instructions: Reason For Exam: CHF Primary care physician: JITENDRA BOSCH MD Hospitalization Condition: Fair Hospital course: Patient is 63 yo recently discharged from hospital after managememnt of CHF. She presented with chest pain and shortness of breath. She was seen and evaluated in ED and diagnosed with acute respiratory failure due to CHF exacerbation. Patient was seen and evaluated in Ed. She was given Lasix iv, put on Oxygen and admitted to Telemetry. She was evaluated by Cardiology and put on Milrinone drip. She improved,, shortness of breath resollved. patient was weaned off Oxygen and discharged home on 07/07/18 to follow as outpatient. Total time spent on discharge, 32 mins Disposition: DC- TO HOME OR SELFCARE - Discharge Diagnoses (1) Acute on chronic systolic (congestive) heart failure Status: Acute (2) Chest pain Status: Acute Qualifiers: Chest pain type: unspecified Qualified Code(s): R07.9 - Chest pain, unspecified (3) GERD (gastroesophageal reflux disease) Status: Acute (4) HTN (hypertension) Status: Chronic Qualifiers: Hypertension type: essential hypertension Qualified Code(s): I10 - Essential (primary) hypertension (5) Hyperlipidemia Status: Chronic Qualifiers: Hyperlipidemia type: mixed hyperlipidemia Qualified Code(s): E78.2 - Mixed hyperlipidemia Core Measure Documentation - Palliative Care Palliative Care/ Comfort Measures: Not Applicable - Core Measures Any of the following diagnoses?: heart failure - Heart Failure Discharge Requirements UGO/ARB for LVSD if EF <40%: Yes Beta jameson at discharge: Yes Exam - Constitutional Vitals: Temp Pulse Resp BP Pulse Ox 98.4 F 109 H 18 138/83 96 07/07/18 11:46 07/07/18 11:46 07/07/18 11:46 07/07/18 11:46 07/07/18 11:46 Plan Activity: advance as tolerated Diet: low fat, low cholesterol, low salt Additional Instructions: 1.Follow up with PCP in 1 week. 2.Follow up with activity leader, [facility] in 1 week Follow up with: JITENDRA VALDEZ MD [Primary Care Provider] - 3-5 Days Prescriptions: Spironolactone [Aldactone] 25 mg PO QDAY #30 tablet
[2018-07-07 16:07] VITALS: BP 124/88
== END 2018-07-07 18:00 | disposition home or self-care (01) | DRG 291 ==
LOC: ED 16:29 → 4A 19:27
PROVIDERS: ADMIT Internal Medicine; ATTEND Internal Medicine
DX: I11.0 Hypertensive heart disease with heart failure (principal); J96.00 Acute respiratory failure, unspecified whether with hypoxia or hypercapnia; J18.9 Pneumonia, unspecified organism; I50.23 Acute on chronic systolic (congestive) heart failure; I42.0 Dilated cardiomyopathy; I48.0 Paroxysmal atrial fibrillation; E78.2 Mixed hyperlipidemia; D64.9 Anemia, unspecified; Z71.51 Drug abuse counseling and surveillance of drug abuser; Z79.01 Long term (current) use of anticoagulants; Z82.49 Family history of ischemic heart disease and other diseases of the circulatory system; Z79.899 Other long term (current) drug therapy; Z68.39 Body mass index [BMI] 39.0-39.9, adult; Z71.3 Dietary counseling and surveillance
CPT/HCPCS: 36415; 71045; 71275; 80048; 80053; 82607; 82747; 83036; 83550; 83880; 84484; 85025; 85379; 85610; 85730; 87040; 93005; 93010; 93306; 96365; 96375; G0378; A9270-GY; J1940; J1956; J2260; Q9967

== ENCOUNTER 2018-08-11 04:32 | Inpatient (IN) | payer MEDICARE ==
[2018-08-11 05:33] LABS: Basophils % (Auto) 0.6 % (0.0-1.8); Eosinophils # (Auto) 0.1 K/mm3 (0.0-0.4); Eosinophils % (Auto) 0.7 % (0.0-4.3); Hematocrit 30.4 % (30.3-42.9); Hemoglobin 9.4 gm/dl (10.1-14.3); Lymphocytes # (Auto) 2.5 K/mm3 (1.2-5.4); Lymphocytes % (Auto) 32.1 % (13.4-35.0); Mean Corpuscular HGB Conc 31 % (30-34); Mean Corpuscular Volume 75 fl (79-97); Monocytes # (Auto) 0.7 K/mm3 (0.0-0.8); Monocytes % (Auto) 8.7 % (0.0-7.3); Platelet Count 344 K/mm3 (140-440); Red Blood Count 4.06 M/mm3 (3.65-5.03); Red Cell Distribution Width 18.9 % (13.2-15.2)
--- NOTE | 2018-08-11 05:35 | XRay Report ---
PROCEDURE: XR CHEST 1V AP TECHNIQUE: Chest radiograph single view. HISTORY: Chest Pain COMPARISONS: 07/03/2018 . FINDINGS: Heart: Heart is enlarged. Mediastinum/Vessels: Normal. Lungs/Pleural space: Lungs are clear. There are no infiltrates, effusions or pneumothoraces.. Bony thorax: No acute osseous abnormality. Life support devices: None. IMPRESSION: Heart is enlarged. Lungs are clear. There are no infiltrates, effusions or pneumothoraces... This document is electronically signed by Braulio Rosado MD., August 11 2018 06:34:21 AM ET
[2018-08-11 06:04] LABS: BUN/Creatinine Ratio 24; Blood Urea Nitrogen 24 mg/dL (7-17); Calcium 9.2 mg/dL (8.4-10.2); Hemolysis Index 0
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
[2018-08-11 08:44] LABS: Albumin 3.5 g/dL (3.9-5); Bilirubin,Direct 0.3 mg/dL (0-0.2)
[2018-08-11] MEDS ORDERED: LASIX IV ONE (09:32)
[2018-08-11] MEDS ORDERED: BABY ASPIRIN PO ONE (10:09)
[2018-08-11] MEDS ORDERED: TYLENOL PO PRN (12:16)
[2018-08-11] MEDS ORDERED: PERCOCET 5/325 PO PRN (12:16)
[2018-08-11] MEDS ORDERED: DILAUDID IV PRN (12:16)
[2018-08-11] MEDS ORDERED: ZOFRAN IV PRN (12:16)
[2018-08-11] MEDS ORDERED: SODIUM CHLORIDE FLUSH SYRINGE 10 ML IV PRN (12:16)
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
[2018-08-11] MEDS: K-DUR PO SCH (13:37)
[2018-08-11] MEDS: ELIQUIS PO SCH ×2 (13:37→22:02)
[2018-08-11] MEDS: ZESTRIL PO SCH (13:37)
[2018-08-11] MEDS: PROGRAF PO SCH (13:38)
[2018-08-11] MEDS: PEPCID PO SCH ×2 (13:41→22:02)
[2018-08-11] MEDS: HALFPRIN EC PO SCH (13:43)
[2018-08-11] MEDS: COREG PO SCH ×2 (13:43→22:03)
[2018-08-11] MEDS: LASIX IV SCH (18:18)
[2018-08-11] MEDS: SODIUM CHLORIDE FLUSH SYRINGE 10 ML IV SCH (22:02)
[2018-08-12] MEDS: PROGRAF PO SCH ×2 (01:39→13:00)
[2018-08-12] MEDS: K-DUR PO SCH ×2 (01:41→13:30)
[2018-08-12] MEDS: LASIX IV SCH ×2 (05:31→17:13)
[2018-08-12 06:47] LABS: Alanine Aminotransferase 31 units/L (7-56); Albumin 3.4 g/dL (3.9-5); BUN/Creatinine Ratio 30; Blood Urea Nitrogen 27 mg/dL (7-17); Calcium 8.8 mg/dL (8.4-10.2); Hemolysis Index 2
[2018-08-12] MEDS: PEPCID PO SCH ×2 (10:00→23:43)
[2018-08-12] MEDS: ZESTRIL PO SCH (10:00)
[2018-08-12] MEDS: COREG PO SCH ×2 (10:00→23:43)
[2018-08-12] MEDS: HALFPRIN EC PO SCH (10:00)
[2018-08-12] MEDS: ELIQUIS PO SCH ×2 (10:00→23:43)
[2018-08-12] MEDS: SODIUM CHLORIDE FLUSH SYRINGE 10 ML IV SCH ×2 (10:00→23:44)
--- NOTE | 2018-08-12 11:34 | Consultation ---
History of Present Illness Consult date: 08/12/18 Consult reason: congestive heart failure History of present illness: Patient is a 63 year old woman with a history of hypertension, nonischemic cardiomyopathy and chronic systolic heart failure. Patient was previously recommended for a cardiac defibrillator in the past, which she declined. She also has a history of paroxysmal atrial fibrillation and is on eliquis for oral anticoagulation therapy. Her latest cardiac workup was done at [facility] early April. The echocardiogram reports a decreased systolic function, ejection fraction 15-20%, and the thallium showed no ischemia, consistent with a nonischemic cardiomyopathy. A repeat echocardiogram in June reports at least moderate MR, decreased left ventricular systolic function, ejection fraction 15%. Patient presented to this hospital with shortness of breath, chest pain admitted for further evaluation. Noted febrile overnight. WBC is normal. Chest x-ray suspicious for right lower lobe infiltrate; cardiomegaly but no evidence of interstitial edema. Her ECG is sinus rhythm, LVH with repolarization abnormalities. A cardiac consultation has been requested for CHF management. Medications and Allergies Allergies Allergy/AdvReac Type Severity Reaction Status Date / Time No Known Allergies Allergy Unverified 06/08/18 07:43 Home Medications Medication Instructions Recorded Confirmed Last Taken Type Aspirin [Adult Aspirin] 81 mg PO DAILY 06/19/18 08/11/18 07/03/18 History AtorvaSTATin [Lipitor] 20 mg PO DAILY 06/19/18 08/11/18 07/03/18 History Carvedilol [Coreg] 6.25 mg PO BID 06/19/18 08/11/18 07/03/18 History Furosemide [Lasix TAB] 40 mg PO BID 06/19/18 08/11/18 07/03/18 History Lisinopril [Zestril TAB] 20 mg PO QDAY 06/19/18 08/11/18 07/03/18 History Apixaban [Eliquis] 5 mg PO Q12HR #60 tablet 06/22/18 08/11/18 07/03/18 Rx Famotidine [Pepcid] 20 mg PO BID #60 tablet 06/22/18 08/11/18 07/03/18 Rx Tacrolimus [Prograf] 1 mg PO Q12H 08/11/18 08/11/18 Unknown History Active Meds: Active Medications Acetaminophen (Tylenol) 650 mg PO Q4H PRN PRN Reason: Pain MILD(1-3)/Fever >100.5/MERA Apixaban (Eliquis) 5 mg PO Q12HR [facility]; Protocol Last Admin: 08/12/18 10:00 Dose: 5 mg Documented by: Aspirin (Halfprin Ec) 81 mg PO DAILY [facility] Last Admin: 08/12/18 10:00 Dose: 81 mg Documented by: Atorvastatin Calcium (Lipitor) 20 mg PO DAILY [facility] Last Admin: 08/12/18 10:00 Dose: 20 mg Documented by: Carvedilol (Coreg) 6.25 mg PO BID [facility] Last Admin: 08/12/18 10:00 Dose: 6.25 mg Documented by: Famotidine (Pepcid) 20 mg PO BID [facility] Last Admin: 08/12/18 10:00 Dose: 20 mg Documented by: Furosemide (Lasix) 40 mg IV 0600,1800 [facility] Last Admin: 08/12/18 05:31 Dose: 40 mg Documented by: Hydromorphone HCl (Dilaudid) 0.5 mg IV Q3H PRN PRN Reason: Pain , Severe (7-10) Lisinopril (Zestril) 20 mg PO QDAY [facility] Last Admin: 08/12/18 10:00 Dose: 20 mg Documented by: Ondansetron HCl (Zofran) 4 mg IV Q8H PRN PRN Reason: Nausea And Vomiting Oxycodone/Acetaminophen (Percocet 5/325) 1 tab PO Q6H PRN PRN Reason: Pain, Moderate (4-6) Potassium Chloride (K-Dur) 20 meq PO Q12H [facility] Last Admin: 08/12/18 01:41 Dose: 20 meq Documented by: Sodium Chloride (Sodium Chloride Flush Syringe 10 Ml) 10 ml IV BID [facility] Last Admin: 08/12/18 10:00 Dose: 10 ml Documented by: Sodium Chloride (Sodium Chloride Flush Syringe 10 Ml) 10 ml IV PRN PRN PRN Reason: LINE FLUSH Tacrolimus (Prograf) 1 mg PO Q12H [facility] Last Admin: 08/12/18 01:39 Dose: Not Given Documented by: Physical Examination Vital Signs Temp Pulse Resp BP Pulse Ox 97.8 F 107 H 18 134/91 98 08/11/18 04:37 08/11/18 04:37 08/11/18 04:37 08/11/18 04:37 08/11/18 04:37 General appearance: no acute distress HEENT: Positive: PERRL Neck: Positive: trachea midline Cardiac: Positive: Reg Rate and Rhythm Lungs: Positive: Decreased Breath Sounds Neuro: Positive: Grossly Intact Extremities: Absent: edema Results 08/11/18 04:53 08/12/18 05:50 Cardiac Enzymes 08/12/18 Range/Units 05:50 AST 43 H (5-40) units/L Comprehensive Metabolic Panel 08/12/18 Range/Units 05:50 Sodium 143 (137-145) mmol/L Potassium 4.4 (3.6-5.0) mmol/L Chloride 104.6 (98-107) mmol/L Carbon Dioxide 28 (22-30) mmol/L BUN 27 H (7-17) mg/dL Creatinine 0.9 (0.7-1.2) mg/dL Glucose 118 H (65-100) mg/dL Calcium 8.8 (8.4-10.2) mg/dL AST 43 H (5-40) units/L ALT 31 (7-56) units/L Alkaline Phosphatase 53 (35-129) units/L Total Protein 6.7 (6.3-8.2) g/dL Albumin 3.4 L (3.9-5) g/dL Assessment and Plan Chronic systolic heart failure Suspected Pneumonia Hypertension Nonischemic cardiomyopathy Paroxysmal Afib on eliquis for oral anticoagulation therapy An echocardiogram 06/2018 reports at least moderate MR, decreased left ventricular systolic function, ejection fraction 15-20% [facility] 04/2018: Thallium showed no ischemia, consistent with a nonischemic cardiomyopathy. Recommendations: Medical therapy for chronic systolic heart failure to include diuretics, afterload agents and beta blockers. Continue oral anticoagulation therapy for paroxysmal Afib. Fluid and salt restricted diet. Strict I's and O's. Daily weights.
[2018-08-13] MEDS: PROGRAF PO SCH (02:02)
[2018-08-13] MEDS: K-DUR PO SCH ×2 (02:02→13:27)
--- NOTE | 2018-08-13 06:35 | Progress Note ---
Assessment and Plan - Patient Problems (1) Acute on chronic systolic (congestive) heart failure Current Visit: No Status: Acute Plan to address problem: IV Lasix initiated Daily weights and daily I/O Echo if not done recently Cardiology consult EF 15 percent Has [facility] Cardiology consult appreciated (2) HTN (hypertension) Current Visit: No Status: Chronic Qualifiers: Hypertension type: essential hypertension Qualified Code(s): I10 - Essential (primary) hypertension Plan to address problem: Cont antihypertensives (3) Hyperlipidemia Current Visit: No Status: Chronic Qualifiers: Hyperlipidemia type: mixed hyperlipidemia Qualified Code(s): E78.2 - Mixed hyperlipidemia Plan to address problem: Cont statins (4) Anticoagulation management encounter Current Visit: Yes Status: Chronic Plan to address problem: On Eliquis for paroxysmal Afib (5) DVT prophylaxis Current Visit: No Status: Acute Plan to address problem: On Lovenox and GI prophylaxis (6) Discharge planning issues Current Visit: Yes Status: Acute Plan to address problem: Patient has good improvement Probable discharge tomorrow Subjective Date of service: 08/12/18 Principal diagnosis: CHF exacerbation Interval history: Admitted for CHF exacerbation.Symptomatically lot better.compared to yesterday. Objective - Constitutional Vitals: Vital Signs - 12hr 08/12/18 08/12/18 08/12/18 22:00 22:08 23:43 Temperature 98.3 F Pulse Rate 88 89 Pulse Rate [ 88 Radial] Respiratory 22 22 Rate Blood Pressure 119/79 124/82 O2 Sat by Pulse 97 97 Oximetry 08/13/18 05:42 Temperature 97.5 F L Pulse Rate 78 Pulse Rate [ Radial] Respiratory 22 Rate Blood Pressure 101/69 O2 Sat by Pulse 99 Oximetry General appearance: Present: no acute distress, well-nourished - EENT Eyes: PERRL, EOM intact ENT: hearing intact, clear oral mucosa Ears: bilateral: normal - Neck Neck: supple, normal ROM - Respiratory Respiratory effort: normal Respiratory: bilateral: CTA - Breasts Breasts: normal - Cardiovascular Heart rate: 80 Rhythm: regular Heart Sounds: Present: S1 & S2. Absent: gallop, rub Extremities: no ischemia, pulses intact, No edema, normal color, Full ROM - Gastrointestinal General gastrointestinal: Present: soft, non-tender, non-distended, normal bowel sounds - Genitourinary Female genitourinary: normal - Integumentary Integumentary: clear, warm, dry - Musculoskeletal Musculoskeletal: 1, strength equal bilaterally - Neurologic Neurologic: moves all extremities - Psychiatric Psychiatric: memory intact, appropriate mood/affect, intact judgment & insight - Allied health notes Allied health notes reviewed: nursing, case management - Labs CBC & Chem 7: 08/11/18 04:53 08/12/18 05:50 Labs: Abnormal lab results 08/12/18 Range/Units 05:50 BUN 27 H (7-17) mg/dL Glucose 118 H (65-100) mg/dL AST 43 H (5-40) units/L Albumin 3.4 L (3.9-5) g/dL
[2018-08-13] MEDS: LASIX IV SCH (06:46)
[2018-08-13] MEDS: ELIQUIS PO SCH (10:13)
[2018-08-13] MEDS: ZESTRIL PO SCH (10:13)
[2018-08-13] MEDS: PEPCID PO SCH (10:13)
[2018-08-13] MEDS: HALFPRIN EC PO SCH (10:13)
[2018-08-13] MEDS: SODIUM CHLORIDE FLUSH SYRINGE 10 ML IV SCH (10:14)
[2018-08-13] MEDS: COREG PO SCH (10:14)
--- NOTE | 2018-08-13 11:44 | Progress Note ---
Assessment and Plan Chronic systolic heart failure Suspected Pneumonia Hypertension Nonischemic cardiomyopathy Paroxysmal Afib on eliquis for oral anticoagulation therapy An echocardiogram 06/2018 reports at least moderate MR, decreased left ventricular systolic function, ejection fraction 15-20% [facility] 04/2018: Thallium showed no ischemia, consistent with a nonischemic cardiomyopathy. Recommendations: Medical therapy for chronic systolic heart failure to include diuretics, afterload agents and beta blockers. Continue oral anticoagulation therapy for paroxysmal Afib. Fluid and salt restricted diet. Strict I's and O's. Daily weight. Subjective Date of service: 08/13/18 Principal diagnosis: CHF exacerbation Interval history: Patient reports she is feeling better. Objective Vital Signs Temp Pulse Pulse Resp BP Pulse Ox 08/13/18 05:42 97.5 F L 78 22 101/69 99 08/12/18 23:43 89 124/82 08/12/18 22:08 98.3 F 88 22 119/79 97 08/12/18 22:00 88 22 97 08/12/18 17:19 98.5 F 90 20 120/73 98 08/12/18 12:22 97.4 F L 74 20 118/77 97 - Physical Examination HEENT: Positive: PERRL Neck: Positive: trachea midline Cardiac: Positive: Regular Rate, Other (mutifocal atrial rhythm) Neuro: Positive: Grossly Intact Extremities: Absent: edema
--- NOTE | 2018-08-13 12:08 | Discharge Summary ---
Providers - Providers Date of Admission: 08/11/18 10:07 Date of discharge: 08/13/18 Attending physician: SAVITA GIRON 08/11/18 Consult to Case Management [CONS] Routine Services Needed at Discharge: Home Health Services Notified:: alicia 08/11/18 12:10 Consult to Physician [CONS] Routine Comment: Consulting Provider: KENNEDY GAONA Physician Instructions: Reason For Exam: CHF exacerbaion Primary care physician: IOANA COOLEY Hospitalization Condition: Stable Hospital course: Patient is a 63 yo woman with a history of CHF with EF 15% (refused ICD implantation per Wool Classer's note), moderate to severe MR, hypertension, dyslipidemia, Afib on Eliquis and Kidney transplant on Prograf who presented to [facility] ED with sob and bilateral leg swelling. An echocardiogram 06/2018 reports at least moderate MR, decreased left ventricular systolic function, ejection fraction 15-20% [facility] 04/2018: Thallium showed no ischemia, consistent with a nonischemic cardiomyopathy. * pCXR Impression: Heart is enlarged. Lungs are clear. There are no infiltrates, effusions or pneumothoraces Discharge Diagnoses: Acute on chronic systolic heart failure, pt is on 40mg po bid lasix but states the iv 40 mg bid of lasix works better and relieved her symptoms. No Pneumonia, negative CXR Hypertension Nonischemic cardiomyopathy Paroxysmal Afib on eliquis for oral anticoagulation therapy Disposition: DC-01 TO HOME OR SELFCARE Time spent for discharge: 36 minutes Core Measure Documentation - Palliative Care Palliative Care/ Comfort Measures: Not Applicable - Core Measures Any of the following diagnoses?: heart failure - VTE Discharge Requirements Deep Vein Thrombosis/Pulmonary Embolism Present on Admission: No Has pt received <5 days of overlap therapy or INR<2.0: No Anticoagulant overlap therapy prescribed at discharge: No Contraindication No Overlap Therapy order at DC: Not Indicated - Heart Failure Discharge Requirements UGO/ARB for LVSD if EF <40%: Yes Beta jameson at discharge: Yes Exam - Physical Exam Narrative exam: Gen: WDWN, NAD, Awake, Alert, Orientated HEENT: NCAT, EOMI, PERRL, OP Clear Neck: supple, no adenopathy, no thyromegaly, no JVD CVS/Heart: RRR, normal S1S2, pulses present bilaterally Chest/Lungs: CTA B, Symmetrical chest exddfpansion, good air entry bilaterally GI/Abdomen: soft, NTND, good bowel sounds, no guarding or rebound /Bladder: no suprapubic tenderness, no CVA or paraspinal tenderness Extermity/Skin: trace pre-tibial pitting edema, no obvious rash MSK: FROM x 4 Neuro: CN 2-12 grossly intact, no new focal deficits Psych: calm - Constitutional Vitals: Temp Pulse Resp BP Pulse Ox 97.5 F L 78 22 101/69 99 08/13/18 05:42 08/13/18 05:42 08/13/18 05:42 08/13/18 05:42 08/13/18 05:42 Plan Activity: other (no strenous activity unless cleared by Wool Classer) Diet: low salt Follow up with: IOANA COOLEY MD [Primary Care Provider] - 3-5 Days KENNEDY GAONA MD [Staff Physician] - 7 Days
[2018-08-13 13:15] VITALS: BP 102/70
[2018-08-13] MEDS ORDERED: LOVENOX SUB-Q SCH (22:00)
== END 2018-08-13 15:26 | disposition home or self-care (01) | DRG 293 ==
LOC: ED 04:32 → 3A 10:07
PROVIDERS: ADMIT Internal Medicine; ATTEND Internal Medicine
DX: I11.0 Hypertensive heart disease with heart failure (principal); I48.0 Paroxysmal atrial fibrillation; I50.23 Acute on chronic systolic (congestive) heart failure; I42.0 Dilated cardiomyopathy; E78.2 Mixed hyperlipidemia; I34.0 Nonrheumatic mitral (valve) insufficiency; E78.5 Hyperlipidemia, unspecified; Z79.899 Other long term (current) drug therapy; Z79.82 Long term (current) use of aspirin; Z87.891 Personal history of nicotine dependence; Z79.01 Long term (current) use of anticoagulants; Z82.49 Family history of ischemic heart disease and other diseases of the circulatory system
CPT/HCPCS: 36415; 71045; 80048; 80053; 80076; 83036; 83880; 84484; 85025; 87116; 93005; 93010; G0378; A9270-GY; J1940; J7507

== ENCOUNTER 2018-10-24 20:28 | Inpatient (IN) | payer MEDICARE ==
[2018-10-24] MEDS ORDERED: ASPIRIN PO ONE (20:53)
[2018-10-24 21:27] LABS: Basophils # (Auto) 0.1 K/mm3 (0.0-0.1); Basophils % (Auto) 0.8 % (0.0-1.8); Eosinophils # (Auto) 0.1 K/mm3 (0.0-0.4); Eosinophils % (Auto) 1.3 % (0.0-4.3); Hematocrit 28.4 % (30.3-42.9); Hemoglobin 8.3 gm/dl (10.1-14.3); Lymphocytes # (Auto) 2.3 K/mm3 (1.2-5.4); Lymphocytes % (Auto) 33.4 % (13.4-35.0); Mean Corpuscular HGB Conc 29 % (30-34); Mean Corpuscular Volume 71 fl (79-97); Monocytes # (Auto) 0.6 K/mm3 (0.0-0.8); Monocytes % (Auto) 8.7 % (0.0-7.3); Platelet Count 348 K/mm3 (140-440); Red Cell Distribution Width 20.5 % (13.2-15.2)
--- NOTE | 2018-10-24 21:33 | XRay Report ---
CHEST 2 VIEWS INDICATION / CLINICAL INFORMATION: Chest Pain. COMPARISON: None available. FINDINGS: SUPPORT DEVICES: None. HEART / MEDIASTINUM: Cardiomegaly LUNGS / PLEURA: Mild edema. No large pleural effusion. ADDITIONAL FINDINGS: No significant additional findings. IMPRESSION: Cardiomegaly with trace interstitial edema. Signer Name: Inocente Moffett MD Signed: 10/24/2018 9:29 PM Workstation Name: [id number]
[2018-10-24 21:46] LABS: BUN/Creatinine Ratio 18; Blood Urea Nitrogen 16 mg/dL (7-17); Calcium 9.2 mg/dL (8.4-10.2); Hemolysis Index 0
[2018-10-24] MEDS ORDERED: LASIX IV ONE (23:17)
[2018-10-24] MEDS ORDERED: ASPIRIN ONE (23:56)
[2018-10-25] MEDS ORDERED: LASIX IV ONE (01:11)
[2018-10-25] MEDS ORDERED: DUONEB *Not for PRN Use IH ONE (01:12)
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
[2018-10-25] MEDS ORDERED: TYLENOL PO PRN (03:07)
[2018-10-25] MEDS ORDERED: ZOFRAN IV PRN (03:09)
[2018-10-25] MEDS ORDERED: SODIUM CHLORIDE FLUSH SYRINGE 10 ML IV PRN (03:09)
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
[2018-10-25] MEDS: LASIX IV SCH ×2 (05:37→20:21)
[2018-10-25] MEDS ORDERED: ELIQUIS PO SCH (10:00)
[2018-10-25] MEDS ORDERED: PROGRAF PO SCH (10:00)
--- NOTE | 2018-10-25 10:02 | Consultation ---
History of Present Illness Consult date: 10/25/18 Consult reason: congestive heart failure History of present illness: Patient is a 63 year old woman with a history of hypertension, nonischemic cardiomyopathy and chronic systolic heart failure. Patient was previously recommended for a cardiac defibrillator in the past, which she declined. She also has a history of paroxysmal atrial fibrillation and is on eliquis for oral anticoagulation therapy. Her latest cardiac workup was done at [facility] early April. The echocardiogram reports a decreased systolic function, ejection fraction 15-20%, and the thallium showed no ischemia, consistent with a nonischemic cardiomyopathy. A repeat echocardiogram in June reports at least moderate MR, decreased left ventricular systolic function, ejection fraction 15%. Patient presented to this hospital with shortness of breath, admitted with CHF exacerbation. Patient denies dietary indiscretions and reports compliance with her medications. Initial labs shows anemia with a trend downwards. Patient denies black tarry stools. Her ECG is sinus rhythm, left ventricular hypertrophy with repolarization abnormalities. A cardiac consultation has been requested for CHF management. Medications and Allergies Allergies Allergy/AdvReac Type Severity Reaction Status Date / Time No Known Allergies Allergy Unverified 06/08/18 07:43 Home Medications Medication Instructions Recorded Confirmed Last Taken Type Aspirin [Adult Aspirin] 81 mg PO DAILY 06/19/18 10/25/18 07/03/18 History AtorvaSTATin [Lipitor] 20 mg PO DAILY 06/19/18 10/25/18 07/03/18 History Carvedilol [Coreg] 6.25 mg PO BID 06/19/18 10/25/18 07/03/18 History Furosemide [Lasix TAB] 40 mg PO BID 06/19/18 10/25/18 07/03/18 History Lisinopril [Zestril TAB] 20 mg PO QDAY 06/19/18 10/25/18 07/03/18 History Apixaban [Eliquis] 5 mg PO Q12HR #60 tablet 06/22/18 10/25/18 07/03/18 Rx Famotidine [Pepcid] 20 mg PO BID #60 tablet 06/22/18 10/25/18 07/03/18 Rx Acetaminophen [Acetaminophen TAB] 650 mg PO Q4H PRN #15 tablet 08/13/18 10/25/18 Unknown Rx Active Meds: Active Medications Acetaminophen (Tylenol) 650 mg PO Q4H PRN PRN Reason: Pain MILD(1-3)/Fever >100.5/MERA Apixaban (Eliquis) 5 mg PO Q12HR [facility]; Protocol Atorvastatin Calcium (Lipitor) 20 mg PO DAILY [facility] Carvedilol (Coreg) 6.25 mg PO BID [facility] Famotidine (Pepcid) 20 mg PO BID [facility] Furosemide (Lasix) 40 mg IV BID@0600,1800 [facility] Last Admin: 10/25/18 05:37 Dose: 40 mg Documented by: Lisinopril (Zestril) 20 mg PO QDAY [facility] Ondansetron HCl (Zofran) 4 mg IV Q8H PRN PRN Reason: Nausea And Vomiting Sodium Chloride (Sodium Chloride Flush Syringe 10 Ml) 10 ml IV BID [facility] Sodium Chloride (Sodium Chloride Flush Syringe 10 Ml) 10 ml IV PRN PRN PRN Reason: LINE FLUSH Physical Examination Vital Signs Temp Pulse Resp BP Pulse Ox 98.0 F 101 H 18 138/93 92 10/24/18 20:36 10/24/18 20:36 10/24/18 20:36 10/24/18 20:36 10/24/18 20:36 General appearance: no acute distress HEENT: Positive: PERRL Neck: Positive: trachea midline Cardiac: Positive: Reg Rate and Rhythm Lungs: Positive: Decreased Breath Sounds Neuro: Positive: Grossly Intact Extremities: Present: +1 Edema Results 10/24/18 20:59 10/24/18 20:59 CBC 10/24/18 Range/Units 20:59 WBC 6.8 (4.5-11.0) K/mm3 RBC 4.00 (3.65-5.03) M/mm3 Hgb 8.3 L (10.1-14.3) gm/dl Hct 28.4 L (30.3-42.9) % Plt Count 348 (140-440) K/mm3 Lymph # 2.3 (1.2-5.4) K/mm3 [place] # 0.6 (0.0-0.8) K/mm3 Eos # 0.1 (0.0-0.4) K/mm3 Baso # 0.1 (0.0-0.1) K/mm3 Comprehensive Metabolic Panel 10/24/18 Range/Units 20:59 Sodium 139 (137-145) mmol/L Potassium 3.9 (3.6-5.0) mmol/L Chloride 99.7 (98-107) mmol/L Carbon Dioxide 31 H (22-30) mmol/L BUN 16 (7-17) mg/dL Creatinine 0.9 (0.7-1.2) mg/dL Glucose 107 H (65-100) mg/dL Calcium 9.2 (8.4-10.2) mg/dL Assessment and Plan Chronic systolic heart failure Microcytic Anemia Hypertension Nonischemic cardiomyopathy Paroxysmal Afib on eliquis for oral anticoagulation therapy An echocardiogram 06/2018 reports at least moderate MR, decreased left ventricular systolic function, ejection fraction 15-20% [facility] 04/2018: Thallium showed no ischemia, consistent with a nonischemic cardiomyopathy. Recommendations: Medical therapy for chronic systolic heart failure to include diuretics, afterload agents and beta blockers. We will stop Eliquis due to microcytic amenia Fluid and salt restricted diet. Strict I's and O's. Daily weight.
[2018-10-25] MEDS: COREG PO SCH ×2 (10:49→22:13)
[2018-10-25] MEDS: PEPCID PO SCH ×2 (10:50→22:13)
[2018-10-25] MEDS: ZESTRIL PO SCH (10:50)
[2018-10-25] MEDS: SODIUM CHLORIDE FLUSH SYRINGE 10 ML IV SCH ×2 (10:50→22:14)
--- NOTE | 2018-10-25 12:22 | Event Note ---
Date: 10/25/18 Patient is 63 yo presents with chest pain, CHF exacerbation. I have seen and examined her.
[2018-10-25] MEDS: LOVENOX SUB-Q SCH (22:12)
--- NOTE | 2018-10-25 23:40 | Progress Note ---
Assessment and Plan Chronic systolic heart failure - Fluid and salt restricted diet. Strict I's and O's. Daily weight. Stop IVF. Gentle diuresis. Microcytic Anemia - patient has reported BRBPR. Elquis stopped. Workup per primary. Hypertension - well controlled. continue current medical therapy. Nonischemic cardiomyopathy - Continue current medical therapy with BB and ACEi An echocardiogram 06/2018 reports at least moderate MR, decreased left ventricular systolic function, ejection fraction 15-20% [facility] 04/2018: Thallium showed no ischemia, consistent with a nonischemic cardiomyopathy. Paroxysmal Afib on eliquis for oral anticoagulation therapy - eliquis stopped due to microcytic anemia rate control strategy with BB Subjective Date of service: 10/26/18 Interval history: No acute events. Resting comfortably. No chest pain or SOB. Objective Vital Signs Temp Pulse Pulse Pulse Resp Resp BP 10/25/18 22:13 90 142/89 10/25/18 22:00 10/25/18 20:36 90 18 10/25/18 19:00 98.6 F 92 H 10/25/18 16:46 97.8 F 94 H 16 145/86 10/25/18 11:52 98.2 F 97 H 16 132/92 10/25/18 10:50 102 H 134/88 10/25/18 10:49 102 H 134/88 10/25/18 10:00 10/25/18 07:27 97.6 F 102 H 16 134/88 10/25/18 05:48 96 H 20 10/25/18 05:37 97.8 F 10/25/18 05:34 96 H 22 127/76 10/25/18 05:00 95 H 24 145/82 10/25/18 04:51 90 17 151/87 10/25/18 02:00 101 H 37 H 152/98 10/25/18 01:35 98 H 20 10/25/18 01:23 99 H 27 H 149/94 10/25/18 01:05 99 H 25 H 10/25/18 00:00 96 H 26 H BP Pulse Ox 10/25/18 22:13 10/25/18 22:00 100 10/25/18 20:36 98 10/25/18 19:00 142/82 10/25/18 16:46 100 10/25/18 11:52 99 10/25/18 10:50 10/25/18 10:49 10/25/18 10:00 96 10/25/18 07:27 94 10/25/18 05:48 95 10/25/18 05:37 10/25/18 05:34 95 10/25/18 05:00 86 10/25/18 04:51 100 10/25/18 02:00 99 10/25/18 01:35 10/25/18 01:23 100 10/25/18 01:05 149/94 99 10/25/18 00:00 148/95 99 - Physical Examination HEENT: Positive: PERRL Neck: Positive: trachea midline Neuro: Positive: Grossly Intact Extremities: Present: +1 Edema
[2018-10-26 05:28] LABS: BUN/Creatinine Ratio 18; Blood Urea Nitrogen 14 mg/dL (7-17); Calcium 8.6 mg/dL (8.4-10.2); Hemolysis Index 0
[2018-10-26] MEDS: LASIX IV SCH ×2 (05:55→17:16)
[2018-10-26] MEDS: ZESTRIL PO SCH (09:40)
[2018-10-26] MEDS: K-DUR PO SCH ×2 (09:40→15:45)
[2018-10-26] MEDS: COREG PO SCH ×2 (09:41→21:04)
[2018-10-26] MEDS: PEPCID PO SCH ×2 (09:41→21:04)
[2018-10-26] MEDS: SODIUM CHLORIDE FLUSH SYRINGE 10 ML IV SCH ×2 (09:44→21:05)
--- NOTE | 2018-10-26 11:27 | Progress Note ---
Assessment and Plan Assessment and plan: Acute resp failure due to CHF exacerbation Cont supplemental Oxygen Acute on chronic systolic CHF EF 15-20% from echocardiogram done in June Lasix iv Cardiology following Obesity. I counseled her on diet and exercise Full code status NSVT Check Mg, Phos levels History Interval history: Less shortness of breath Nurse reports 5 beats vtach on Tele Hospitalist Physical - Physical exam Narrative exam: Gen: Not in acute distress, lying in bed HEENT: Normocephalic, atraumatic Neck: supple, no JVD Heart: S1 and S2 reg, no murmurs, rubs or gallop Lungs: Bilateral basal crackles, no rhonchi Abd: soft, non tender, non distended, normal BS, Ext: Mild edema, no clubbing, no cyanosis Neuro: Awake,alert, Oriented X 3. No focal neuro signs Psych: normal mood - Constitutional Vitals: Temp Pulse Resp BP Pulse Ox 98.0 F 85 16 130/81 97 10/26/18 08:08 10/26/18 10:00 10/26/18 08:08 10/26/18 09:41 10/26/18 08:08 General appearance: Present: no acute distress Results - Labs CBC & Chem 7: 10/24/18 20:59 10/26/18 03:53 Labs: Laboratory Last Values WBC 6.8 K/mm3 (4.5-11.0) 10/24/18 20:59 RBC 4.00 M/mm3 (3.65-5.03) 10/24/18 20:59 Hgb 8.3 gm/dl (10.1-14.3) L 10/24/18 20:59 Hct 28.4 % (30.3-42.9) L 10/24/18 20:59 MCV 71 fl (79-97) L 10/24/18 20:59 MCH 21 pg (28-32) L 10/24/18 20:59 MCHC 29 % (30-34) L 10/24/18 20:59 RDW 20.5 % (13.2-15.2) H 10/24/18 20:59 Plt Count 348 K/mm3 (140-440) 10/24/18 20:59 Lymph % (Auto) 33.4 % (13.4-35.0) 10/24/18 20:59 [place] % (Auto) 8.7 % (0.0-7.3) H 10/24/18 20:59 Eos % (Auto) 1.3 % (0.0-4.3) 10/24/18 20:59 Baso % (Auto) 0.8 % (0.0-1.8) 10/24/18 20:59 Lymph # 2.3 K/mm3 (1.2-5.4) 10/24/18 20:59 [place] # 0.6 K/mm3 (0.0-0.8) 10/24/18 20:59 Eos # 0.1 K/mm3 (0.0-0.4) 10/24/18 20:59 Baso # 0.1 K/mm3 (0.0-0.1) 10/24/18 20:59 Seg Neutrophils % 55.8 % (40.0-70.0) 10/24/18 20:59 Seg Neutrophils # 3.8 K/mm3 (1.8-7.7) 10/24/18 20:59 Sodium 143 mmol/L (137-145) 10/26/18 03:53 Potassium 3.5 mmol/L (3.6-5.0) L 10/26/18 03:53 Chloride 100.4 mmol/L (98-107) 10/26/18 03:53 Carbon Dioxide 33 mmol/L (22-30) H 10/26/18 03:53 13 mmol/L 10/26/18 03:53 BUN 14 mg/dL (7-17) 10/26/18 03:53 0.8 mg/dL (0.7-1.2) 10/26/18 03:53 Estimated GFR > 60 ml/min 10/26/18 03:53 18 % 10/26/18 03:53 Glucose 102 mg/dL (65-100) H 10/26/18 03:53 Calcium 8.6 mg/dL (8.4-10.2) 10/26/18 03:53 < 0.010 ng/mL (0.00-0.029) 10/25/18 03:04 NT-Pro-B Natriuret Pep 5987 pg/mL (0-900) H 10/24/18 23:29 Active Medications - Current Medications Current Medications: Generic Name Dose Route Start Last Admin Trade Name Tirso MILLARDN Reason Stop Dose Admin Acetaminophen 650 mg 10/25/18 03:07 Tylenol PO Q4H PRN Pain MILD(1-3)/Fever >100.5/MERA Atorvastatin Calcium 20 mg 10/25/18 10:00 10/26/18 09:42 Lipitor PO 20 mg DAILY [facility] Administration Carvedilol 6.25 mg 10/25/18 10:00 10/26/18 09:41 Coreg PO 6.25 mg BID [facility] Administration Enoxaparin Sodium 40 mg 10/25/18 22:00 10/25/18 22:12 Lovenox SUB-Q 40 mg QDAY@2200 [facility] Administration Famotidine 20 mg 10/25/18 10:00 10/26/18 09:41 Pepcid PO 20 mg BID [facility] Administration Furosemide 40 mg 10/25/18 06:00 10/26/18 05:55 Lasix IV 40 mg BID@0600,1800 [facility] Administration Lisinopril 20 mg 10/25/18 10:00 10/26/18 09:40 Zestril PO 20 mg QDAY [facility] Administration Ondansetron HCl 4 mg 10/25/18 03:09 Zofran IV Q8H PRN Nausea And Vomiting Potassium Chloride 40 meq 10/26/18 09:00 10/26/18 09:40 K-Dur PO 10/26/18 15:01 40 meq Q6H [facility] Administration Sodium Chloride 10 ml 10/25/18 10:00 10/26/18 09:44 Sodium Chloride Flush Syringe 10 Ml IV 10 ml BID [facility] Administration Sodium Chloride 10 ml 10/25/18 03:09 Sodium Chloride Flush Syringe 10 Ml IV PRN PRN LINE FLUSH Nutrition/Malnutrition Assess - Dietary Evaluation Nutrition/Malnutrition Findings: Nutrition Notes Start: 10/25/18 11:15 Freq: Status: Active Protocol: Document 10/25/18 11:16 RS (Rec: 10/25/18 11:45 RS [id number]) Co-Sign 10/25/18 11:16 LP Nutrition Notes Need for Assessment generated from: [facility]UST Initial or Follow up Brief Note Other Pertinent Diagnosis CHF Current Diet Cardiac Diet Labs/Tests CO2: 31 Glu: 107 NT-Pro-B: 5987 Pertinent Medications Lasix Ondanestron Height 5 ft 5 in Weight 70.4 kg Gary Body Weight (kg) 56.81 BMI 25.8 Intake Prior to Admission Good Weight Status Overweight Subjective/Other Information pt compliant with cardiac diet & sodium restriction good appetite pt has fluid restriction of 1500mL/day and expressed difficulty with thirst Screen for MST score Burn Absent Trauma Absent GI Symptoms Nausea Food Allergy No Usual Diet at Home Cardiac Diet Skin Integrity/Comment Pitting edema in LE Current % PO Good (75-100%) Minimum of two criteria No Fluid Accumulation Moderate to Severe (severe) #1 Nutrition Diagnosis No nutrition diagnosis at this time Is patient on ventilator? No Is Patient Ambulatory and/or Out of Bed No REE-([facility]-confined to bed) 1522.956 Calculation Used for Recommendations [facility] Nutrition Intervention Change Diet Order: Continue cardiac diet Goal #1 Continue to follow heart healthy diet at home Anticipated Discharge Needs: Cardiac diet Revisit per MD consult or patient Sign Off request:
[2018-10-26] MEDS: LOVENOX SUB-Q SCH (21:05)
--- NOTE | 2018-10-26 23:40 | Progress Note ---
Assessment and Plan Chronic systolic heart failure - Fluid and salt restricted diet. Strict I's and O's. Daily weight. Stop IVF. Gentle diuresis. Microcytic Anemia - patient has reported BRBPR. Elquis stopped. Workup per primary. Hypertension - well controlled. continue current medical therapy. Nonischemic cardiomyopathy - Continue current medical therapy with BB and ACEi. Maximize medical therapy as blood pressure tolerates. Add spironolactone if blood pressure allows An echocardiogram 06/2018 reports at least moderate MR, decreased left ventricular systolic function, ejection fraction 15-20% [facility] 04/2018: Thallium showed no ischemia, consistent with a nonischemic cardiomyopathy. Paroxysmal Afib on eliquis for oral anticoagulation therapy - eliquis stopped due to microcytic anemia rate control strategy with BB Subjective Date of service: 10/27/18 Interval history: No acute events. Resting comfortably. No chest pain or SOB. Objective Vital Signs Temp Pulse Pulse Pulse Resp BP BP 10/26/18 21:04 88 123/74 10/26/18 20:05 97.9 F 88 20 123/74 10/26/18 16:09 98.4 F 82 16 126/79 10/26/18 12:41 97.7 F 84 16 118/76 10/26/18 11:56 10/26/18 10:00 85 92 H 90 16 10/26/18 09:41 90 130/81 10/26/18 09:40 90 130/81 10/26/18 08:08 98.0 F 95 H 16 130/81 10/26/18 04:00 97.4 F L 70 16 130/78 10/26/18 00:00 97.4 F L 68 Pulse Ox 10/26/18 21:04 10/26/18 20:05 98 10/26/18 16:09 98 10/26/18 12:41 99 10/26/18 11:56 98 10/26/18 10:00 98 10/26/18 09:41 10/26/18 09:40 10/26/18 08:08 97 10/26/18 04:00 10/26/18 00:00 97 - Physical Examination HEENT: Positive: PERRL Neck: Positive: trachea midline Neuro: Positive: Grossly Intact Extremities: Present: +1 Edema - Labs and Meds Comprehensive Metabolic Panel 10/26/18 Range/Units 03:53 Sodium 143 (137-145) mmol/L Potassium 3.5 L (3.6-5.0) mmol/L Chloride 100.4 (98-107) mmol/L Carbon Dioxide 33 H (22-30) mmol/L BUN 14 (7-17) mg/dL Creatinine 0.8 (0.7-1.2) mg/dL Glucose 102 H (65-100) mg/dL Calcium 8.6 (8.4-10.2) mg/dL
[2018-10-27 05:49] LABS: BUN/Creatinine Ratio 18; Blood Urea Nitrogen 14 mg/dL (7-17); Calcium 8.8 mg/dL (8.4-10.2); Hemolysis Index 0
[2018-10-27] MEDS: LASIX IV SCH (06:08)
[2018-10-27 08:26] VITALS: BP 128/80
[2018-10-27] MEDS: COREG PO SCH (09:08)
[2018-10-27] MEDS: PEPCID PO SCH (09:09)
[2018-10-27] MEDS: SODIUM CHLORIDE FLUSH SYRINGE 10 ML IV SCH (09:09)
[2018-10-27] MEDS: ZESTRIL PO SCH (09:09)
--- NOTE | 2018-10-27 13:53 | Discharge Summary ---
Providers - Providers Date of Admission: 10/25/18 04:36 Date of discharge: 10/27/18 Attending physician: ANA TOBIN 10/25/18 03:09 Consult to Physician [CONS] Routine Comment: Consulting Provider: KENNEDY GAONA Physician Instructions: Reason For Exam: chf Primary care physician: IOANA COOLEY Hospitalization Condition: Fair Disposition: DC-01 TO HOME OR SELFCARE Core Measure Documentation - Palliative Care Palliative Care/ Comfort Measures: Not Applicable - Core Measures Any of the following diagnoses?: heart failure, none - Heart Failure Discharge Requirements UGO/ARB for LVSD if EF <40%: Yes Beta jameson at discharge: Yes Exam - Constitutional Vitals: Temp Pulse Resp BP Pulse Ox 98.7 F 90 18 128/80 93 10/27/18 08:24 10/27/18 10:00 10/27/18 08:31 10/27/18 09:09 10/27/18 08:24 Plan Activity: advance as tolerated Diet: low fat, low cholesterol, low salt Plan of Treatment: 1.Follow up with PCP in 1 week. 2.Follow up with cardiology in 1 week. 3.Follow up with YOVANA Patel to evaluate anemia Assessment: 1.Acute on chronic systolic CHF..
== END 2018-10-27 15:29 | disposition home or self-care (01) | DRG 291 ==
LOC: ED 20:28 → 4A 10-25 04:36
PROVIDERS: ADMIT Internal Medicine; ATTEND Internal Medicine
DX: I11.0 Hypertensive heart disease with heart failure (principal); J96.01 Acute respiratory failure with hypoxia; D68.69 Other thrombophilia; I50.23 Acute on chronic systolic (congestive) heart failure; I42.0 Dilated cardiomyopathy; D50.8 Other iron deficiency anemias; E66.9 Obesity, unspecified; I48.0 Paroxysmal atrial fibrillation; Z79.01 Long term (current) use of anticoagulants; Z79.82 Long term (current) use of aspirin; Z79.899 Other long term (current) drug therapy; Z82.49 Family history of ischemic heart disease and other diseases of the circulatory system; Z71.3 Dietary counseling and surveillance; Z68.23 Body mass index [BMI] 23.0-23.9, adult
CPT/HCPCS: 36415; 71046; 80048; 83735; 83880; 84100; 84484; 85025; 87116; 93005; 93010; 94644; 94760; 96374; 96375; G0378; A9270-GY; J1650; J1940

== ENCOUNTER 2018-11-01 17:04 | Inpatient (IN) | payer MEDICARE ==
[2018-11-01 18:06] LABS: Basophils # (Auto) 0.1 K/mm3 (0.0-0.1); Eosinophils # (Auto) 0.1 K/mm3 (0.0-0.4); Eosinophils % (Auto) 1.1 % (0.0-4.3); Lymphocytes # (Auto) 2.6 K/mm3 (1.2-5.4); Lymphocytes % (Auto) 39.5 % (13.4-35.0); Mean Corpuscular HGB Conc 29 % (30-34); Mean Corpuscular Volume 70 fl (79-97); Monocytes # (Auto) 0.7 K/mm3 (0.0-0.8); Monocytes % (Auto) 9.8 % (0.0-7.3); Platelet Count 301 K/mm3 (140-440)
[2018-11-01 18:08] LABS: Hematocrit 28.2 % (30.3-42.9); Hemoglobin 8.3 gm/dl (10.1-14.3)
[2018-11-01 18:09] LABS: Red Cell Distribution Width 20.4 % (13.2-15.2)
--- NOTE | 2018-11-01 18:15 | XRay Report ---
CHEST 1 VIEW INDICATION: CP. COMPARISON: 10/24/2018. FINDINGS: Support devices: None. Heart: Stable cardiomegaly. Lungs/Pleura: No acute air space or interstitial disease. Left base not well evaluated due to body rocha bitus. Additional findings: None. IMPRESSION: Stable cardiomegaly. Signer Name: Ray Soni MD Signed: 11/01/2018 6:11 PM Workstation Name: [id number]
[2018-11-01 18:16] LABS: BUN/Creatinine Ratio 30; Blood Urea Nitrogen 21 mg/dL (7-17); Calcium 9.1 mg/dL (8.4-10.2); Hemolysis Index 14
[2018-11-01 18:18] LABS: INR 1.42 (0.87-1.13)
[2018-11-01 18:35] LABS: Partial Thromboplastin Time 30.1 Sec. (24.2-36.6)
[2018-11-01] MEDS ORDERED: LASIX IV ONE (20:36)
[2018-11-01] MEDS ORDERED: BABY ASPIRIN PO ONE (20:36)
[2018-11-01] MEDS ORDERED: MORPHINE IV ONE (20:36)
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
[2018-11-01] MEDS ORDERED: ZOFRAN IV PRN (21:56)
[2018-11-01] MEDS ORDERED: TYLENOL PO PRN (21:56)
[2018-11-01] MEDS ORDERED: SODIUM CHLORIDE FLUSH SYRINGE 10 ML IV PRN ×2 (21:56)
[2018-11-01] MEDS ORDERED: PEPCID IV SCH (22:00)
--- NOTE | 2018-11-01 22:04 | History and Physical Report ---
<ZAHEER CONNELL - Last Filed: 11/02/18 01:07> History of Present Illness Date of examination: 11/01/18 Date of admission: 11/01/2018 Chief complaint: Chest pain, SOB History of present illness: Pt is a 63-year-old female with PMHx of CAD, CHF, non-ischemic cardiomyopathy, HTN, HDL, A-fib who was brought to the ER by EMS for c/o chest pain and SOB. Pt states that the syptoms started the day before, she reports chest pain, the pain is located in the midsternal area, associated with SOB and dyspnea on exertion. Pt states that the symptoms started the day before but worsen today. She reports that she has been taking her medication as prescribed, she has diagnosed with CHF for several years and was doing well until the last 8 months, she had had several hospitalizations for the same symptoms. Pt was admited to [facility] for acute dyspnia about 1 week ago. She states that she was referred to a cardiology after discharged from the hospital, she remember that they discussed implantation of a device for her CHF but she states that she didn't feel ready for that at that time. Pt BNP was 4860,she was giving diuretic and admitted to the hospital for furter evaluation and treatment. Past History Past Medical History: anemia, CAD, heart failure, hypertension, hyperlipidemia Past Surgical History: Other (abnominal surgery) Social history: no significant social history Family history: no significant family history Medications and Allergies Allergies Allergy/AdvReac Type Severity Reaction Status Date / Time No Known Allergies Allergy Unverified 06/08/18 07:43 Home Medications Medication Instructions Recorded Confirmed Last Taken Type Aspirin [Adult Aspirin] 81 mg PO DAILY 06/19/18 11/01/18 11/01/18 History AtorvaSTATin [Lipitor] 20 mg PO DAILY 06/19/18 11/01/18 11/01/18 History Carvedilol [Coreg] 6.25 mg PO BID 06/19/18 11/01/18 11/01/18 History Furosemide [Lasix TAB] 40 mg PO BID 06/19/18 11/01/18 11/01/18 History Lisinopril [Zestril TAB] 20 mg PO QDAY 06/19/18 11/01/18 11/01/18 History Apixaban [Eliquis] 5 mg PO Q12HR #60 tablet 06/22/18 11/01/18 11/01/18 Rx Famotidine [Pepcid] 20 mg PO BID #60 tablet 06/22/18 11/01/18 11/01/18 Rx Review of Systems Cardiovascular: chest pain Respiratory: shortness of breath, dyspnea on exertion Exam - Constitutional Vitals: Temp Pulse Resp BP Pulse Ox 97.5 F L 100 H 18 132/91 96 11/01/18 19:30 11/01/18 19:30 11/01/18 20:59 11/01/18 19:30 11/01/18 19:30 General appearance: Present: no acute distress - EENT Eyes: Present: EOM intact ENT: hearing intact - Neck Neck: Present: supple - Respiratory Respiratory effort: normal Respiratory: bilateral: CTA - Cardiovascular Rhythm: regular Heart Sounds: Present: S1 & S2 - Extremities Extremities: no ischemia, No edema Peripheral Pulses: within normal limits - Abdominal General gastrointestinal: Present: soft, non-tender, non-distended Female genitourinary: Present: deferred - Rectal Rectal Exam: deferred - Integumentary Integumentary: Present: clear, warm - Musculoskeletal Musculoskeletal: strength equal bilaterally - Psychiatric Psychiatric: cooperative - Neurologic Neurologic: moves all extremities Results - Labs CBC & Chem 7: 11/01/18 22:40 11/01/18 17:45 Labs: Laboratory Last Values WBC 6.6 K/mm3 (4.5-11.0) 11/01/18 17:45 RBC 4.00 M/mm3 (3.65-5.03) 11/01/18 17:45 Hgb 8.3 gm/dl (10.1-14.3) L 11/01/18 17:45 Hct 28.2 % (30.3-42.9) L 11/01/18 17:45 MCV 70 fl (79-97) L 11/01/18 17:45 MCH 21 pg (28-32) L 11/01/18 17:45 MCHC 29 % (30-34) L 11/01/18 17:45 RDW 20.4 % (13.2-15.2) H 11/01/18 17:45 Plt Count 301 K/mm3 (140-440) 11/01/18 17:45 Lymph % (Auto) 39.5 % (13.4-35.0) H 11/01/18 17:45 [place] % (Auto) 9.8 % (0.0-7.3) H 11/01/18 17:45 Eos % (Auto) 1.1 % (0.0-4.3) 11/01/18 17:45 Baso % (Auto) 1.0 % (0.0-1.8) 11/01/18 17:45 Lymph # 2.6 K/mm3 (1.2-5.4) 11/01/18 17:45 [place] # 0.7 K/mm3 (0.0-0.8) 11/01/18 17:45 Eos # 0.1 K/mm3 (0.0-0.4) 11/01/18 17:45 Baso # 0.1 K/mm3 (0.0-0.1) 11/01/18 17:45 Seg Neutrophils % 48.6 % (40.0-70.0) 11/01/18 17:45 Seg Neutrophils # 3.2 K/mm3 (1.8-7.7) 11/01/18 17:45 PT 17.0 Sec. (12.2-14.9) H 11/01/18 17:45 INR 1.42 (0.87-1.13) H 11/01/18 17:45 APTT 30.1 Sec. (24.2-36.6) 11/01/18 17:45 Sodium 142 mmol/L (137-145) 11/01/18 17:45 Potassium 3.9 mmol/L (3.6-5.0) 11/01/18 17:45 Chloride 102.4 mmol/L (98-107) 11/01/18 17:45 Carbon Dioxide 26 mmol/L (22-30) 11/01/18 17:45 18 mmol/L 11/01/18 17:45 BUN 21 mg/dL (7-17) H 11/01/18 17:45 0.7 mg/dL (0.7-1.2) 11/01/18 17:45 Estimated GFR > 60 ml/min 11/01/18 17:45 30 % 11/01/18 17:45 Glucose 99 mg/dL (65-100) 11/01/18 17:45 Calcium 9.1 mg/dL (8.4-10.2) 11/01/18 17:45 < 0.010 ng/mL (0.00-0.029) 11/01/18 19:47 NT-Pro-B Natriuret Pep 4860 pg/mL (0-900) H 11/01/18 17:59 Assessment and Plan Assessment and plan: 1. Chest pain r/o ACS 2. Acute dyspnea 3. CHF with acute exacerbation ([id number], EF unknown, last echo unsure) 4. Non-Ischemic cardiomyopathy 5. Hypertension 6. Hyperlipidemia 7. H/o A-Fib (on Eliquis) 8. Anemia (of chronic dz) Plan Admit to medtele Consult cardiology for evaluation Continue CE q6hr x 2 more Monitor vital signs Lasix 40 mg IV QD Lipid panel in am Continue home meds Stress test in am if ok with cardiology Plan of care d/w pt, voiced understading Pt's condition and plan of care d/w Dr Lynch Advance Directives: Yes VTE prophylaxis?: Mechanical Plan of care discussed with patient/family: Yes <BRENT LYNCH - Last Filed: 11/02/18 04:01> History of Present Illness Date of admission: 11/01/18 21:56 Medications and Allergies Active Meds: Active Medications Acetaminophen (Tylenol) 650 mg PO Q4H PRN PRN Reason: Pain MILD(1-3)/Fever >100.5/MERA Apixaban (Eliquis) 5 mg PO Q12HR [facility]; Protocol Aspirin (Halfprin Ec) 81 mg PO DAILY [facility] Atorvastatin Calcium (Lipitor) 20 mg PO DAILY [facility] Carvedilol (Coreg) 6.25 mg PO BID [facility] Famotidine (Pepcid) 20 mg PO BID [facility] Furosemide (Lasix) 40 mg PO BID [facility] Lisinopril (Zestril) 20 mg PO QDAY [facility] Morphine Sulfate (Morphine) 2 mg IV Q4H PRN PRN Reason: Pain , Severe (7-10) Ondansetron HCl (Zofran) 4 mg IV Q8H PRN PRN Reason: Nausea And Vomiting Sodium Chloride (Sodium Chloride Flush Syringe 10 Ml) 10 ml IV BID [facility] Last Admin: 11/01/18 22:48 Dose: 10 ml Documented by: Sodium Chloride (Sodium Chloride Flush Syringe 10 Ml) 10 ml IV PRN PRN PRN Reason: LINE FLUSH Exam - Constitutional Vitals: Temp Pulse Resp BP Pulse Ox 98.2 F 68 20 140/89 99 11/02/18 00:22 11/02/18 00:22 11/02/18 00:22 11/02/18 00:22 11/02/18 00:22 Results - Labs CBC & Chem 7: 11/01/18 22:40 11/01/18 22:40 Labs: Laboratory Last Values WBC 7.5 K/mm3 (4.5-11.0) 11/01/18 22:40 RBC 4.14 M/mm3 (3.65-5.03) 11/01/18 22:40 Hgb 8.5 gm/dl (10.1-14.3) L 11/01/18 22:40 Hct 29.1 % (30.3-42.9) L 11/01/18 22:40 MCV 70 fl (79-97) L 11/01/18 22:40 MCH 21 pg (28-32) L 11/01/18 22:40 MCHC 29 % (30-34) L 11/01/18 22:40 RDW 20.7 % (13.2-15.2) H 11/01/18 22:40 Plt Count 342 K/mm3 (140-440) 11/01/18 22:40 Lymph % (Auto) 37.7 % (13.4-35.0) H 11/01/18 22:40 [place] % (Auto) 9.6 % (0.0-7.3) H 11/01/18 22:40 Eos % (Auto) 0.9 % (0.0-4.3) 11/01/18 22:40 Baso % (Auto) 0.9 % (0.0-1.8) 11/01/18 22:40 Lymph # 2.8 K/mm3 (1.2-5.4) 11/01/18 22:40 [place] # 0.7 K/mm3 (0.0-0.8) 11/01/18 22:40 Eos # 0.1 K/mm3 (0.0-0.4) 11/01/18 22:40 Baso # 0.1 K/mm3 (0.0-0.1) 11/01/18 22:40 Seg Neutrophils % 50.9 % (40.0-70.0) 11/01/18 22:40 Seg Neutrophils # 3.8 K/mm3 (1.8-7.7) 11/01/18 22:40 PT 17.0 Sec. (12.2-14.9) H 11/01/18 17:45 INR 1.42 (0.87-1.13) H 11/01/18 17:45 APTT 30.1 Sec. (24.2-36.6) 11/01/18 17:45 Sodium 141 mmol/L (137-145) 11/01/18 22:40 Potassium 4.4 mmol/L (3.6-5.0) 11/01/18 22:40 Chloride 99.8 mmol/L (98-107) 11/01/18 22:40 Carbon Dioxide 28 mmol/L (22-30) 11/01/18 22:40 18 mmol/L 11/01/18 22:40 BUN 20 mg/dL (7-17) H 11/01/18 22:40 0.9 mg/dL (0.7-1.2) 11/01/18 22:40 Estimated GFR > 60 ml/min 11/01/18 22:40 22 % 11/01/18 22:40 Glucose 102 mg/dL (65-100) H 11/01/18 22:40 6.3 % (4-6) H 11/01/18 22:40 Calcium 9.5 mg/dL (8.4-10.2) 11/01/18 22:40 < 0.010 ng/mL (0.00-0.029) 11/01/18 22:40 NT-Pro-B Natriuret Pep 4860 pg/mL (0-900) H 11/01/18 17:59 Triglycerides 43 mg/dL (2-149) 11/01/18 22:40 Cholesterol 113 mg/dL (50-199) 11/01/18 22:40 78 mg/dL (50-130) 11/01/18 22:40 40 mg/dL (40-59) 11/01/18 22:40 2.82 % 11/01/18 22:40 Assessment and Plan Assessment and plan: 63-year-old woman with a history of CHF, A. fib, hypertension comes emergency room with complaints of chest pain described as a pressure-like sensation going across her chest and left arm and has been constant today. Also complaining of shortness of breath, dyspnea and exertion, PND and orthopnea. Admits compliance with her Lasix. She was told 6 months ago that she needed AICD, she declined at that time. She had a stress test in April which was negative. Rheumatoid plan as stated above except change oral Lasix to IV, DC stress test and consult cardiology
[2018-11-01] MEDS ORDERED: PEPCID IV ONE (22:46)
[2018-11-01] MEDS: SODIUM CHLORIDE FLUSH SYRINGE 10 ML IV SCH (22:48)
[2018-11-01 23:44] LABS: Basophils # (Auto) 0.1 K/mm3 (0.0-0.1); Basophils % (Auto) 0.9 % (0.0-1.8); Eosinophils # (Auto) 0.1 K/mm3 (0.0-0.4); Eosinophils % (Auto) 0.9 % (0.0-4.3); Lymphocytes # (Auto) 2.8 K/mm3 (1.2-5.4); Lymphocytes % (Auto) 37.7 % (13.4-35.0); Mean Corpuscular HGB Conc 29 % (30-34); Mean Corpuscular Volume 70 fl (79-97); Monocytes # (Auto) 0.7 K/mm3 (0.0-0.8); Monocytes % (Auto) 9.6 % (0.0-7.3); Platelet Count 342 K/mm3 (140-440); Red Blood Count 4.14 M/mm3 (3.65-5.03)
[2018-11-01 23:48] LABS: Hematocrit 29.1 % (30.3-42.9); Hemoglobin 8.5 gm/dl (10.1-14.3); Red Cell Distribution Width 20.7 % (13.2-15.2)
[2018-11-02 03:56] LABS: BUN/Creatinine Ratio 22; Blood Urea Nitrogen 20 mg/dL (7-17); Calcium 9.5 mg/dL (8.4-10.2); Chol/HDL Ratio 2.82 %; HDL Cholesterol 40 mg/dL (40-59); Hemolysis Index 9; LDL Cholesterol,Direct 78 mg/dL (50-130)
[2018-11-02] MEDS: LASIX IV SCH ×2 (05:12→18:05)
[2018-11-02] MEDS: PEPCID PO SCH ×2 (09:16→21:17)
[2018-11-02] MEDS: ZESTRIL PO SCH (09:16)
[2018-11-02] MEDS: HALFPRIN EC PO SCH (09:16)
[2018-11-02] MEDS: ELIQUIS PO SCH ×2 (09:17→21:18)
[2018-11-02] MEDS: SODIUM CHLORIDE FLUSH SYRINGE 10 ML IV SCH ×2 (09:17→21:18)
[2018-11-02] MEDS ORDERED: LASIX PO SCH (10:00)
[2018-11-02] MEDS ORDERED: COREG PO SCH (10:00)
[2018-11-02] MEDS ORDERED: ECOTRIN PO SCH (10:00)
--- NOTE | 2018-11-02 10:26 | Consultation ---
History of Present Illness Consult date: 11/02/18 Consult reason: congestive heart failure History of present illness: Impression Acute decompensated systolic CHF, EF unknown at present CHF presumed to Non-ischemic, had nuclear stress at [place] 04/2018 apparently normal. Elevated NT-proBNP 4860 HTN Afib CXR negative for edema, cardiomegaly Plan IV diuresis for today Echocardiogram if available Optimize CHF meds. DVT prophylaxis. Past History Past Medical History: anemia, CAD, heart failure, hypertension, hyperlipidemia Past Surgical History: Other (abnominal surgery) Social history: no significant social history Family history: no significant family history Medications and Allergies Allergies Allergy/AdvReac Type Severity Reaction Status Date / Time No Known Allergies Allergy Unverified 06/08/18 07:43 Home Medications Medication Instructions Recorded Confirmed Last Taken Type Aspirin [Adult Aspirin] 81 mg PO DAILY 06/19/18 11/01/18 11/01/18 History AtorvaSTATin [Lipitor] 20 mg PO DAILY 06/19/18 11/01/18 11/01/18 History Carvedilol [Coreg] 6.25 mg PO BID 06/19/18 11/01/18 11/01/18 History Furosemide [Lasix TAB] 40 mg PO BID 06/19/18 11/01/18 11/01/18 History Lisinopril [Zestril TAB] 20 mg PO QDAY 06/19/18 11/01/18 11/01/18 History Apixaban [Eliquis] 5 mg PO Q12HR #60 tablet 06/22/18 11/01/18 11/01/18 Rx Famotidine [Pepcid] 20 mg PO BID #60 tablet 06/22/18 11/01/18 11/01/18 Rx Active Meds: Active Medications Acetaminophen (Tylenol) 650 mg PO Q4H PRN PRN Reason: Pain MILD(1-3)/Fever >100.5/MERA Apixaban (Eliquis) 5 mg PO Q12HR [facility]; Protocol Last Admin: 11/02/18 09:17 Dose: 5 mg Documented by: Aspirin (Halfprin Ec) 81 mg PO DAILY [facility] Last Admin: 11/02/18 09:16 Dose: 81 mg Documented by: Atorvastatin Calcium (Lipitor) 20 mg PO DAILY [facility] Last Admin: 11/02/18 09:16 Dose: 20 mg Documented by: Carvedilol (Coreg) 6.25 mg PO BID [facility] Last Admin: 11/02/18 09:16 Dose: 6.25 mg Documented by: Famotidine (Pepcid) 20 mg PO BID [facility] Last Admin: 11/02/18 09:16 Dose: 20 mg Documented by: Furosemide (Lasix) 40 mg IV 0600,1800 [facility] Last Admin: 11/02/18 05:12 Dose: 40 mg Documented by: Lisinopril (Zestril) 20 mg PO QDAY [facility] Last Admin: 11/02/18 09:16 Dose: 20 mg Documented by: Morphine Sulfate (Morphine) 2 mg IV Q4H PRN PRN Reason: Pain , Severe (7-10) Ondansetron HCl (Zofran) 4 mg IV Q8H PRN PRN Reason: Nausea And Vomiting Sodium Chloride (Sodium Chloride Flush Syringe 10 Ml) 10 ml IV BID [facility] Last Admin: 11/02/18 09:17 Dose: 10 ml Documented by: Sodium Chloride (Sodium Chloride Flush Syringe 10 Ml) 10 ml IV PRN PRN PRN Reason: LINE FLUSH Physical Examination Vital Signs Temp Pulse Resp BP Pulse Ox 98.3 F 100 H 24 131/97 100 11/01/18 17:41 11/01/18 17:41 11/01/18 17:41 11/01/18 17:41 11/01/18 17:41 General appearance: no acute distress HEENT: Positive: PERRL, EOMI Neck: Positive: neck supple. Negative: JVD/HJR Cardiac: Positive: Reg Rate and Rhythm, S1/S2 Lungs: Positive: Normal Exam Neuro: Positive: Grossly Intact Abdomen: Positive: Soft. Negative: Pulsations/Bruits Extremities: Present: normal (minimal edema) Results 11/01/18 22:40 11/01/18 22:40 Coagulation 11/01/18 Range/Units 17:45 PT 17.0 H (12.2-14.9) Sec. INR 1.42 H (0.87-1.13) APTT 30.1 (24.2-36.6) Sec. Lipids 11/01/18 Range/Units 22:40 Triglycerides 43 (2-149) mg/dL Cholesterol 113 (50-199) mg/dL HDL Cholesterol 40 (40-59) mg/dL Cholesterol/HDL Ratio 2.82 % CBC 11/01/18 11/01/18 Range/Units 17:45 22:40 WBC 6.6 7.5 (4.5-11.0) K/mm3 RBC 4.00 4.14 (3.65-5.03) M/mm3 Hgb 8.3 L 8.5 L (10.1-14.3) gm/dl Hct 28.2 L 29.1 L (30.3-42.9) % Plt Count 301 342 (140-440) K/mm3 Lymph # 2.6 2.8 (1.2-5.4) K/mm3 [place] # 0.7 0.7 (0.0-0.8) K/mm3 Eos # 0.1 0.1 (0.0-0.4) K/mm3 Baso # 0.1 0.1 (0.0-0.1) K/mm3 Comprehensive Metabolic Panel 11/01/18 11/01/18 Range/Units 17:45 22:40 Sodium 142 141 (137-145) mmol/L Potassium 3.9 4.4 (3.6-5.0) mmol/L Chloride 102.4 99.8 (98-107) mmol/L Carbon Dioxide 26 28 (22-30) mmol/L BUN 21 H 20 H (7-17) mg/dL Creatinine 0.7 0.9 (0.7-1.2) mg/dL Glucose 99 102 H (65-100) mg/dL Calcium 9.1 9.5 (8.4-10.2) mg/dL
--- NOTE | 2018-11-02 13:48 | Progress Note ---
Assessment and Plan Assessment and plan: 63-year-old woman with a history of CHF, A. fib, hypertension comes emergency room with complaints of chest pain described as a pressure-like sensation going across her chest and left arm and has been constant today. Also complaining of shortness of breath, dyspnea and exertion, PND and orthopnea. Admits compliance with her Lasix. She was told 6 months ago that she needed AICD, she declined at that time. She had a stress test in April which was negative. Rheumatoid plan as stated above except change oral Lasix to IV, DC stress test and consult cardiology Chest pain r/o ACS Acute dyspnea CHF with acute exacerbation ([id number], EF unknown, last echo unsure) Non-Ischemic cardiomyopathy Hypertension Hyperlipidemia A-Fib (on Eliquis) Anemia (of chronic dz) Plan Consult cardiology for evaluation Continue CE q6hr x 2 more Monitor vital signs Lasix 40 mg IV QD Continue CHF protocol Lipid panel in am Continue home meds Stress test in am if ok with cardiology Plan of care d/w pt, voiced understading DVT and GI prophylaxis History Interval history: Patient seen and examined, reports improvement but still with orthopena. no adverse event noted overnight Hospitalist Physical - Physical exam Narrative exam: VITAL SIGNS: Reviewed. GENERAL: The patient appears normally developed, Vital signs as documented. HEAD: No signs of head trauma. EYES: Pupils are equal. Extraocular motions intact. EARS: Hearing grossly intact. MOUTH: Oropharynx is normal. NECK: No adenopathy, no JVD. CHEST: Chest with clear breath sounds bilaterally. No wheezes, rales, or rhonchi. CARDIAC: Regular rate and rhythm. S1 and S2, without murmurs, gallops, or rubs. VASCULAR: +1 pitting Edema. Peripheral pulses normal and equal in all extremities. ABDOMEN: Soft, non tender and non distended. No rebound or guarding, and no masses palpated. Bowel Sounds normal. MUSCULOSKELETAL: Good range of motion of all major joints. Extremities without clubbing, cyanosis. +1 pitting edema. NEUROLOGIC EXAM: Alert and oriented x 3 No focal sensory or strength deficits. Speech normal. Follows commands. PSYCHIATRIC: Mood normal. SKIN: detial exam as documented in skin assessment - Constitutional Vitals: Temp Pulse Resp BP Pulse Ox 97.8 F 91 H 18 152/87 96 11/02/18 07:43 11/02/18 09:16 11/02/18 07:43 11/02/18 09:16 11/02/18 07:43 General appearance: Present: no acute distress Results - Labs CBC & Chem 7: 11/01/18 22:40 11/01/18 22:40 Labs: Laboratory Last Values WBC 7.5 K/mm3 (4.5-11.0) 11/01/18 22:40 RBC 4.14 M/mm3 (3.65-5.03) 11/01/18 22:40 Hgb 8.5 gm/dl (10.1-14.3) L 11/01/18 22:40 Hct 29.1 % (30.3-42.9) L 11/01/18 22:40 MCV 70 fl (79-97) L 11/01/18 22:40 MCH 21 pg (28-32) L 11/01/18 22:40 MCHC 29 % (30-34) L 11/01/18 22:40 RDW 20.7 % (13.2-15.2) H 11/01/18 22:40 Plt Count 342 K/mm3 (140-440) 11/01/18 22:40 Lymph % (Auto) 37.7 % (13.4-35.0) H 11/01/18 22:40 [place] % (Auto) 9.6 % (0.0-7.3) H 11/01/18 22:40 Eos % (Auto) 0.9 % (0.0-4.3) 11/01/18 22:40 Baso % (Auto) 0.9 % (0.0-1.8) 11/01/18 22:40 Lymph # 2.8 K/mm3 (1.2-5.4) 11/01/18 22:40 [place] # 0.7 K/mm3 (0.0-0.8) 11/01/18 22:40 Eos # 0.1 K/mm3 (0.0-0.4) 11/01/18 22:40 Baso # 0.1 K/mm3 (0.0-0.1) 11/01/18 22:40 Seg Neutrophils % 50.9 % (40.0-70.0) 11/01/18 22:40 Seg Neutrophils # 3.8 K/mm3 (1.8-7.7) 11/01/18 22:40 PT 17.0 Sec. (12.2-14.9) H 11/01/18 17:45 INR 1.42 (0.87-1.13) H 11/01/18 17:45 APTT 30.1 Sec. (24.2-36.6) 11/01/18 17:45 Sodium 141 mmol/L (137-145) 11/01/18 22:40 Potassium 4.4 mmol/L (3.6-5.0) 11/01/18 22:40 Chloride 99.8 mmol/L (98-107) 11/01/18 22:40 Carbon Dioxide 28 mmol/L (22-30) 11/01/18 22:40 18 mmol/L 11/01/18 22:40 BUN 20 mg/dL (7-17) H 11/01/18 22:40 0.9 mg/dL (0.7-1.2) 11/01/18 22:40 Estimated GFR > 60 ml/min 11/01/18 22:40 22 % 11/01/18 22:40 Glucose 102 mg/dL (65-100) H 11/01/18 22:40 6.3 % (4-6) H 11/01/18 22:40 Calcium 9.5 mg/dL (8.4-10.2) 11/01/18 22:40 < 0.010 ng/mL (0.00-0.029) 11/02/18 12:05 NT-Pro-B Natriuret Pep 4860 pg/mL (0-900) H 11/01/18 17:59 Triglycerides 43 mg/dL (2-149) 11/01/18 22:40 Cholesterol 113 mg/dL (50-199) 11/01/18 22:40 78 mg/dL (50-130) 11/01/18 22:40 40 mg/dL (40-59) 11/01/18 22:40 2.82 % 11/01/18 22:40 Active Medications - Current Medications Current Medications: Generic Name Dose Route Start Last Admin Trade Name Freq PRN Reason Stop Dose Admin Acetaminophen 650 mg 11/01/18 21:56 Tylenol PO Q4H PRN Pain MILD(1-3)/Fever >100.5/MERA Apixaban 5 mg 11/02/18 10:00 11/02/18 09:17 Eliquis PO 5 mg Q12HR TERESA Administration Protocol Aspirin 81 mg 11/02/18 10:00 11/02/18 09:16 Halfprin Ec PO 81 mg DAILY TERESA Administration Atorvastatin Calcium 20 mg 11/02/18 10:00 11/02/18 09:16 Lipitor PO 20 mg DAILY TERESA Administration Carvedilol 12.5 mg 11/02/18 22:00 Coreg PO BID TERESA Famotidine 20 mg 11/02/18 10:00 11/02/18 09:16 Pepcid PO 20 mg BID TERESA Administration Furosemide 40 mg 11/02/18 06:00 11/02/18 05:12 Lasix IV 40 mg 0600,1800 TERESA Administration Lisinopril 20 mg 11/02/18 10:00 11/02/18 09:16 Zestril PO 20 mg QDAY TERESA Administration Morphine Sulfate 2 mg 11/01/18 21:56 Morphine IV Q4H PRN Pain , Severe (7-10) Ondansetron HCl 4 mg 11/01/18 21:56 Zofran IV Q8H PRN Nausea And Vomiting Sodium Chloride 10 ml 11/01/18 22:00 11/02/18 09:17 Sodium Chloride Flush Syringe 10 Ml IV 10 ml BID TERESA Administration Sodium Chloride 10 ml 11/01/18 21:56 Sodium Chloride Flush Syringe 10 Ml IV PRN PRN LINE FLUSH
[2018-11-02] MEDS: COREG PO SCH (21:17)
[2018-11-03] MEDS: MORPHINE IV PRN (01:42)
[2018-11-03] MEDS: LASIX IV SCH (07:00)
[2018-11-03] MEDS: PEPCID PO SCH ×2 (10:40→21:29)
[2018-11-03] MEDS: ZESTRIL PO SCH (10:40)
[2018-11-03] MEDS: COREG PO SCH ×2 (10:40→21:29)
[2018-11-03] MEDS: HALFPRIN EC PO SCH (10:40)
[2018-11-03] MEDS: ELIQUIS PO SCH ×2 (10:40→21:29)
[2018-11-03] MEDS: SODIUM CHLORIDE FLUSH SYRINGE 10 ML IV SCH ×2 (10:41→21:30)
--- NOTE | 2018-11-03 11:14 | Progress Note ---
Assessment and Plan Assessment and plan: 63-year-old woman with a history of CHF, A. fib, hypertension comes emergency room with complaints of chest pain described as a pressure-like sensation going across her chest and left arm and has been constant today. Also complaining of shortness of breath, dyspnea and exertion, PND and orthopnea. Admits compliance with her Lasix. She was told 6 months ago that she needed AICD, she declined at that time. She had a stress test in April which was negative. Rheumatoid plan as stated above except change oral Lasix to IV, DC stress test and consult cardiology Chest pain r/o ACS Acute dyspnea CHF with acute exacerbation ([id number], EF unknown, last echo unsure) Non-Ischemic cardiomyopathy Hypertension Hyperlipidemia A-Fib (on Eliquis) Anemia (of chronic dz) Plan Consult cardiology for evaluation Per review of cardiology notes, patient had normal stress test at [facility] in 04/2018 Continue CE q6hr x 2 more Monitor vital signs Lasix 40 mg IV QD Continue CHF protocol Lipid panel in am Continue home meds Plan of care d/w pt, voiced understanding Echo pending anticipate discharge in am DVT and GI prophylaxis History Interval history: Patient seen and examined, clinically improving. Hospitalist Physical - Physical exam Narrative exam: VITAL SIGNS: Reviewed. GENERAL: The patient appears normally developed, Vital signs as documented. HEAD: No signs of head trauma. EYES: Pupils are equal. Extraocular motions intact. EARS: Hearing grossly intact. MOUTH: Oropharynx is normal. NECK: No adenopathy, no JVD. CHEST: Chest with clear breath sounds bilaterally. No wheezes, rales, or rhonchi. CARDIAC: Regular rate and rhythm. S1 and S2, without murmurs, gallops, or rubs. VASCULAR: +1 pitting Edema. Peripheral pulses normal and equal in all extremities. ABDOMEN: Soft, non tender and non distended. No rebound or guarding, and no masses palpated. Bowel Sounds normal. MUSCULOSKELETAL: Good range of motion of all major joints. Extremities without clubbing, cyanosis. +1 pitting edema. NEUROLOGIC EXAM: Alert and oriented x 3 No focal sensory or strength deficits. Speech normal. Follows commands. PSYCHIATRIC: Mood normal. SKIN: detial exam as documented in skin assessment - Constitutional Vitals: Temp Pulse Resp BP Pulse Ox 98.5 F 84 18 127/80 98 11/03/18 07:40 08/25/19 10:40 11/03/18 07:40 11/03/18 10:40 11/03/18 07:40 General appearance: Present: no acute distress Results - Labs CBC & Chem 7: 11/01/18 22:40 11/01/18 22:40 Labs: Laboratory Last Values WBC 7.5 K/mm3 (4.5-11.0) 11/01/18 22:40 RBC 4.14 M/mm3 (3.65-5.03) 11/01/18 22:40 Hgb 8.5 gm/dl (10.1-14.3) L 11/01/18 22:40 Hct 29.1 % (30.3-42.9) L 11/01/18 22:40 MCV 70 fl (79-97) L 11/01/18 22:40 MCH 21 pg (28-32) L 11/01/18 22:40 MCHC 29 % (30-34) L 11/01/18 22:40 RDW 20.7 % (13.2-15.2) H 11/01/18 22:40 Plt Count 342 K/mm3 (140-440) 11/01/18 22:40 Lymph % (Auto) 37.7 % (13.4-35.0) H 11/01/18 22:40 [place] % (Auto) 9.6 % (0.0-7.3) H 11/01/18 22:40 Eos % (Auto) 0.9 % (0.0-4.3) 11/01/18 22:40 Baso % (Auto) 0.9 % (0.0-1.8) 11/01/18 22:40 Lymph # 2.8 K/mm3 (1.2-5.4) 11/01/18 22:40 [place] # 0.7 K/mm3 (0.0-0.8) 11/01/18 22:40 Eos # 0.1 K/mm3 (0.0-0.4) 11/01/18 22:40 Baso # 0.1 K/mm3 (0.0-0.1) 11/01/18 22:40 Seg Neutrophils % 50.9 % (40.0-70.0) 11/01/18 22:40 Seg Neutrophils # 3.8 K/mm3 (1.8-7.7) 11/01/18 22:40 PT 17.0 Sec. (12.2-14.9) H 11/01/18 17:45 INR 1.42 (0.87-1.13) H 11/01/18 17:45 APTT 30.1 Sec. (24.2-36.6) 11/01/18 17:45 Sodium 141 mmol/L (137-145) 11/01/18 22:40 Potassium 4.4 mmol/L (3.6-5.0) 11/01/18 22:40 Chloride 99.8 mmol/L (98-107) 11/01/18 22:40 Carbon Dioxide 28 mmol/L (22-30) 11/01/18 22:40 18 mmol/L 11/01/18 22:40 BUN 20 mg/dL (7-17) H 11/01/18 22:40 0.9 mg/dL (0.7-1.2) 11/01/18 22:40 Estimated GFR > 60 ml/min 11/01/18 22:40 22 % 11/01/18 22:40 Glucose 102 mg/dL (65-100) H 11/01/18 22:40 6.3 % (4-6) H 11/01/18 22:40 Calcium 9.5 mg/dL (8.4-10.2) 11/01/18 22:40 < 0.010 ng/mL (0.00-0.029) 11/02/18 12:05 NT-Pro-B Natriuret Pep 4860 pg/mL (0-900) H 11/01/18 17:59 Triglycerides 43 mg/dL (2-149) 11/01/18 22:40 Cholesterol 113 mg/dL (50-199) 11/01/18 22:40 78 mg/dL (50-130) 11/01/18 22:40 40 mg/dL (40-59) 11/01/18 22:40 2.82 % 11/01/18 22:40 Active Medications - Current Medications Current Medications: Generic Name Dose Route Start Last Admin Trade Name Freq PRN Reason Stop Dose Admin Acetaminophen 650 mg 11/01/18 21:56 Tylenol PO Q4H PRN Pain MILD(1-3)/Fever >100.5/MERA Apixaban 5 mg 11/02/18 10:00 11/03/18 10:40 Eliquis PO 5 mg Q12HR TERESA Administration Protocol Aspirin 81 mg 11/02/18 10:00 11/03/18 10:40 Halfprin Ec PO 81 mg DAILY TERESA Administration Atorvastatin Calcium 20 mg 11/02/18 10:00 11/03/18 10:40 Lipitor PO 20 mg DAILY TERESA Administration Carvedilol 12.5 mg 11/02/18 22:00 11/03/18 10:40 Coreg PO 12.5 mg BID TERESA Administration Famotidine 20 mg 11/02/18 10:00 11/03/18 10:40 Pepcid PO 20 mg BID TERESA Administration Furosemide 40 mg 11/02/18 06:00 11/03/18 07:00 Lasix IV 40 mg 0600,1800 TEERSA Administration Lisinopril 20 mg 11/02/18 10:00 11/03/18 10:40 Zestril PO 20 mg QDAY TERESA Administration Morphine Sulfate 2 mg 11/01/18 21:56 11/03/18 01:42 Morphine IV 2 mg Q4H PRN Administration Pain , Severe (7-10) Ondansetron HCl 4 mg 11/01/18 21:56 Zofran IV Q8H PRN Nausea And Vomiting Sodium Chloride 10 ml 11/01/18 22:00 11/03/18 10:41 Sodium Chloride Flush Syringe 10 Ml IV 10 ml BID TERESA Administration Sodium Chloride 10 ml 11/01/18 21:56 Sodium Chloride Flush Syringe 10 Ml IV PRN PRN LINE FLUSH
--- NOTE | 2018-11-03 11:30 | Progress Note ---
Subjective Date of service: 11/03/18 Interval history: Impression Acute decompensated systolic CHF, EF unknown at present, advise echo in AM CHF presumed to Non-ischemic, had nuclear stress at [place] 04/2018 apparently normal. Elevated NT-proBNP 4860 HTN Afib CXR negative for edema, cardiomegaly Plan For today, optimize CHF meds. Echocardiogram in AM. Objective Vital Signs Temp Pulse Resp BP Pulse Ox 11/03/18 10:40 84 127/80 11/03/18 07:40 98.5 F 84 18 127/80 98 11/03/18 05:01 98.0 F 75 18 104/60 100 11/02/18 23:34 98.0 F 87 18 139/90 96 11/02/18 23:00 87 18 11/02/18 21:17 88 146/89 11/02/18 19:48 98.0 F 85 18 146/89 99 11/02/18 16:32 98.5 F 88 18 135/87 99 11/02/18 15:00 95 H - Physical Examination General: Appears Well, No Apparent Distress HEENT: Positive: PERRL, EOMI Neck: Positive: neck supple. Negative: JVD/HJR Cardiac: Positive: Reg Rate and Rhythm, S1/S2 Lungs: Positive: Normal Exam, clear to auscultation Neuro: Positive: Grossly Intact Abdomen: Positive: Soft. Negative: Pulsations/Bruits Extremities: Present: normal (minimal edema)
[2018-11-03] MEDS: LASIX PO SCH (17:42)
[2018-11-04] MEDS: LASIX PO SCH (06:30)
[2018-11-04] MEDS: MORPHINE IV PRN (07:25)
[2018-11-04] MEDS: COREG PO SCH (10:06)
[2018-11-04] MEDS: PEPCID PO SCH (10:06)
[2018-11-04] MEDS: ZESTRIL PO SCH (10:06)
[2018-11-04] MEDS: HALFPRIN EC PO SCH (10:06)
[2018-11-04] MEDS: ELIQUIS PO SCH (10:06)
[2018-11-04] MEDS: SODIUM CHLORIDE FLUSH SYRINGE 10 ML IV SCH (10:07)
[2018-11-04 11:54] VITALS: BP 96/57
--- NOTE | 2018-11-04 12:44 | Progress Note ---
Assessment and Plan Assessment and plan: 63-year-old woman with a history of CHF, A. fib, hypertension comes emergency room with complaints of chest pain described as a pressure-like sensation going across her chest and left arm and has been constant today. Also complaining of shortness of breath, dyspnea and exertion, PND and orthopnea. Admits compliance with her Lasix. She was told 6 months ago that she needed AICD, she declined at that time. She had a stress test in April which was negative. Rheumatoid plan as stated above except change oral Lasix to IV, DC stress test and consult cardiology Chest pain r/o ACS Acute dyspnea CHF with acute exacerbation ([id number], EF unknown, last echo unsure) Non-Ischemic cardiomyopathy Hypertension Hyperlipidemia A-Fib (on Eliquis) Anemia (of chronic dz) Plan Consult cardiology for evaluation Per review of cardiology notes, patient had normal stress test at [place] in 04/2018 Continue CE q6hr x 2 more Monitor vital signs Lasix 40 mg IV QD Continue CHF protocol Lipid panel in am Continue home meds Plan of care d/w pt, voiced understanding Echo pending anticipate discharge in am DVT and GI prophylaxis Hospitalist Physical - Constitutional Vitals: Temp Pulse Resp BP Pulse Ox 97.7 F 73 16 96/57 91 11/04/18 11:53 11/04/18 11:53 11/04/18 11:53 11/04/18 11:53 11/04/18 11:53 General appearance: Present: no acute distress Results - Labs CBC & Chem 7: 11/01/18 22:40 11/01/18 22:40 Labs: Laboratory Last Values WBC 7.5 K/mm3 (4.5-11.0) 11/01/18 22:40 RBC 4.14 M/mm3 (3.65-5.03) 11/01/18 22:40 Hgb 8.5 gm/dl (10.1-14.3) L 11/01/18 22:40 Hct 29.1 % (30.3-42.9) L 11/01/18 22:40 MCV 70 fl (79-97) L 11/01/18 22:40 MCH 21 pg (28-32) L 11/01/18 22:40 MCHC 29 % (30-34) L 11/01/18 22:40 RDW 20.7 % (13.2-15.2) H 11/01/18 22:40 Plt Count 342 K/mm3 (140-440) 11/01/18 22:40 Lymph % (Auto) 37.7 % (13.4-35.0) H 11/01/18 22:40 [place] % (Auto) 9.6 % (0.0-7.3) H 11/01/18 22:40 Eos % (Auto) 0.9 % (0.0-4.3) 11/01/18 22:40 Baso % (Auto) 0.9 % (0.0-1.8) 11/01/18 22:40 Lymph # 2.8 K/mm3 (1.2-5.4) 11/01/18 22:40 [place] # 0.7 K/mm3 (0.0-0.8) 11/01/18 22:40 Eos # 0.1 K/mm3 (0.0-0.4) 11/01/18 22:40 Baso # 0.1 K/mm3 (0.0-0.1) 11/01/18 22:40 Seg Neutrophils % 50.9 % (40.0-70.0) 11/01/18 22:40 Seg Neutrophils # 3.8 K/mm3 (1.8-7.7) 11/01/18 22:40 PT 17.0 Sec. (12.2-14.9) H 11/01/18 17:45 INR 1.42 (0.87-1.13) H 11/01/18 17:45 APTT 30.1 Sec. (24.2-36.6) 11/01/18 17:45 Sodium 141 mmol/L (137-145) 11/01/18 22:40 Potassium 4.4 mmol/L (3.6-5.0) 11/01/18 22:40 Chloride 99.8 mmol/L (98-107) 11/01/18 22:40 Carbon Dioxide 28 mmol/L (22-30) 11/01/18 22:40 18 mmol/L 11/01/18 22:40 BUN 20 mg/dL (7-17) H 11/01/18 22:40 0.9 mg/dL (0.7-1.2) 11/01/18 22:40 Estimated GFR > 60 ml/min 11/01/18 22:40 22 % 11/01/18 22:40 Glucose 102 mg/dL (65-100) H 11/01/18 22:40 6.3 % (4-6) H 11/01/18 22:40 Calcium 9.5 mg/dL (8.4-10.2) 11/01/18 22:40 < 0.010 ng/mL (0.00-0.029) 11/02/18 12:05 NT-Pro-B Natriuret Pep 4860 pg/mL (0-900) H 11/01/18 17:59 Triglycerides 43 mg/dL (2-149) 11/01/18 22:40 Cholesterol 113 mg/dL (50-199) 11/01/18 22:40 78 mg/dL (50-130) 11/01/18 22:40 40 mg/dL (40-59) 11/01/18 22:40 2.82 % 11/01/18 22:40 Active Medications - Current Medications Current Medications: Generic Name Dose Route Start Last Admin Trade Name Freq PRN Reason Stop Dose Admin Acetaminophen 650 mg 11/01/18 21:56 Tylenol PO Q4H PRN Pain MILD(1-3)/Fever >100.5/MERA Apixaban 5 mg 11/02/18 10:00 11/04/18 10:06 Eliquis PO 5 mg Q12HR TERESA Administration Protocol Aspirin 81 mg 11/02/18 10:00 11/04/18 10:06 Halfprin Ec PO 81 mg DAILY TERESA Administration Atorvastatin Calcium 20 mg 11/02/18 10:00 11/04/18 10:06 Lipitor PO 20 mg DAILY TERESA Administration Carvedilol 12.5 mg 11/02/18 22:00 11/04/18 10:06 Coreg PO 12.5 mg BID TERESA Administration Famotidine 20 mg 11/02/18 10:00 11/04/18 10:06 Pepcid PO 20 mg BID TERESA Administration Furosemide 40 mg 11/03/18 18:00 11/04/18 06:30 Lasix PO 40 mg 0600,1800 TERESA Administration Lisinopril 20 mg 11/02/18 10:00 11/04/18 10:06 Zestril PO 20 mg QDAY TERESA Administration Morphine Sulfate 2 mg 11/01/18 21:56 11/04/18 07:25 Morphine IV 2 mg Q4H PRN Administration Pain , Severe (7-10) Ondansetron HCl 4 mg 11/01/18 21:56 Zofran IV Q8H PRN Nausea And Vomiting Sodium Chloride 10 ml 11/01/18 22:00 11/04/18 10:07 Sodium Chloride Flush Syringe 10 Ml IV 10 ml BID TERESA Administration Sodium Chloride 10 ml 11/01/18 21:56 Sodium Chloride Flush Syringe 10 Ml IV PRN PRN LINE FLUSH
--- NOTE | 2018-11-04 14:30 | Progress Note ---
Assessment and Plan - Patient Problems (1) Acute on chronic systolic (congestive) heart failure Current Visit: Yes Status: Acute Plan to address problem: Continue medical therapy for chronic systolic heart failure. Patient's left ventricle ejection fraction was 15% on echocardiogram done just 5 months ago. Subjective Date of service: 11/04/18 Interval history: Patient is comfortable, no new cardiac complaints. Objective Vital Signs Temp Pulse Resp BP Pulse Ox 11/04/18 11:53 97.7 F 73 16 96/57 91 11/04/18 11:00 18 11/04/18 10:06 70 131/84 11/04/18 08:49 97.5 F L 70 16 131/84 99 11/04/18 07:00 76 11/04/18 05:30 97.7 F 11/04/18 05:29 74 18 117/61 93 11/03/18 23:55 98.4 F 11/03/18 23:54 79 18 116/73 94 11/03/18 23:00 80 11/03/18 21:29 80 136/72 11/03/18 21:24 18 11/03/18 21:20 97.6 F 11/03/18 21:18 84 20 136/72 92 11/03/18 16:11 98.3 F 82 18 131/83 99 11/03/18 15:00 79 - Physical Examination General: No Apparent Distress HEENT: Positive: PERRL, EOMI Neck: Positive: neck supple. Negative: JVD/HJR Cardiac: Positive: Reg Rate and Rhythm Lungs: Positive: clear to auscultation Neuro: Positive: Grossly Intact Abdomen: Positive: Soft. Negative: Pulsations/Bruits Skin: Positive: Clear Extremities: Absent: edema
--- NOTE | 2018-11-04 15:24 | Discharge Summary ---
Providers - Providers Date of Admission: 11/01/18 21:56 Attending physician: VARSHA ESPINOZA MD 11/01/18 Consult to Cardiac Rehabilitation [CONS] Routine Reason For Exam: Phase I 11/02/18 02:31 Consult to Cardiology [CONS] Routine Consulting Provider: SONU HODGE Reason For Exam: chest pain Primary care physician: IOANA COOLEY Hospitalization Condition: Stable Hospital course: 63-year-old woman with a history of CHF, A. fib, hypertension comes emergency room with complaints of chest pain described as a pressure-like sensation going across her chest and left arm and has been constant today. Also complaining of shortness of breath, dyspnea and exertion, PND and orthopnea. Admits compliance with her Lasix. She was told 6 months ago that she needed AICD, she declined at that time. She had a stress test in April which was negative. Rheumatoid plan as stated above except change oral Lasix to IV, DC stress test and consult cardiology * Discussed with cardiology, outpatient AICD eval Chest pain r/o ACS Acute dyspnea CHF with acute exacerbation ([id number], EF unknown, last echo unsure) Non-Ischemic cardiomyopathy Hypertension Hyperlipidemia A-Fib (on Eliquis) Anemia (of chronic dz) Plan Consult cardiology for evaluation Per review of cardiology notes, patient had normal stress test at [place] in 04/2018 Continue CE q6hr x 2 more Monitor vital signs Lasix 40 mg IV QD Continue CHF protocol Lipid panel in am Continue home meds Plan of care d/w pt, voiced understanding Echo pending anticipate discharge in am DVT and GI prophylaxis Disposition: DC-01 TO HOME OR SELFCARE Time spent for discharge: 35 mind Exam - Constitutional Vitals: Temp Pulse Resp BP Pulse Ox 97.7 F 73 16 96/57 91 11/04/18 11:53 11/04/18 11:53 11/04/18 11:53 11/04/18 11:53 11/04/18 11:53 Plan Activity: advance as tolerated, fall precautions Diet: low salt Special Instructions: record daily weights, record daily BP diary Follow up with: IOANA COOLEY MD [Primary Care Provider] - 3-5 Days KENNEDY GAONA MD [Staff Physician] - 7 Days Prescriptions: Aspirin [Adult Aspirin] 81 mg PO DAILY #30 tablet.dr Cruzvedilol [Coreg] 12.5 mg PO BID #60 tablet Apixaban [Eliquis] 5 mg PO Q12HR #60 tablet Furosemide [Lasix TAB] 40 mg PO BID #60 tablet AtorvaSTATin [Lipitor] 20 mg PO DAILY #30 tablet Lisinopril [Zestril TAB] 20 mg PO QDAY #30 tablet
== END 2018-11-04 17:45 | disposition home or self-care (01) | DRG 292 ==
LOC: ED 17:04 → 4A 21:56
PROVIDERS: ADMIT Internal Medicine; ATTEND Internal Medicine
DX: I11.0 Hypertensive heart disease with heart failure (principal); I24.9 Acute ischemic heart disease, unspecified; I50.23 Acute on chronic systolic (congestive) heart failure; I42.8 Other cardiomyopathies; I48.91 Unspecified atrial fibrillation; D63.8 Anemia in other chronic diseases classified elsewhere; I25.10 Atherosclerotic heart disease of native coronary artery without angina pectoris; I42.9 Cardiomyopathy, unspecified; Z79.01 Long term (current) use of anticoagulants; Z79.82 Long term (current) use of aspirin
CPT/HCPCS: 36415; 71045; 80048; 80061; 83036; 83880; 84484; 85025; 85610; 85730; 93005; 93010; 96374; 96375; G0378; A9270-GY; J1940; J2270

== ENCOUNTER 2018-11-12 08:30 | Emergency (ER) | payer MEDICARE ==
[2018-11-12] MEDS ORDERED: NORCO 5/325 PO ONE (09:10)
[2018-11-12] MEDS ORDERED: VANCOMYCIN 1,750 MG in NACL 0.9% 500 ML 500 ML IV ONE (09:16)
--- NOTE | 2018-11-12 09:29 | XRay Report ---
CHEST 1 VIEW INDICATION: Dyspnea. COMPARISON: 11/01/2018 FINDINGS: Support devices: None. Heart: Mild to moderate cardiomegaly is stable. Lungs/Pleura: No acute air space or interstitial disease. Additional findings: None. IMPRESSION: Stable cardiomegaly. Lungs clear. Signer Name: Stanley Vega Jr, MD Signed: 11/12/2018 9:24 AM Workstation Name: [id number]
[2018-11-12 09:50] LABS: Albumin 3.7 g/dL (3.9-5); BUN/Creatinine Ratio 24; Basophils # (Auto) 0.1 K/mm3 (0.0-0.1); Blood Urea Nitrogen 19 mg/dL (7-17); Calcium 9.3 mg/dL (8.4-10.2); Eosinophils # (Auto) 0.1 K/mm3 (0.0-0.4); Eosinophils % (Auto) 1.4 % (0.0-4.3); Hemolysis Index 106; Monocytes # (Auto) 0.7 K/mm3 (0.0-0.8); Monocytes % (Auto) 8.4 % (0.0-7.3)
[2018-11-12 09:52] LABS: Basophils % (Auto) 0.8 % (0.0-1.8); Lymphocytes # (Auto) 2.8 K/mm3 (1.2-5.4); Lymphocytes % (Auto) 34.8 % (13.4-35.0); Mean Corpuscular HGB Conc 29 % (30-34); Mean Corpuscular Volume 71 fl (79-97); Platelet Count 336 K/mm3 (140-440); Red Blood Count 4.05 M/mm3 (3.65-5.03)
[2018-11-12 09:57] LABS: INR 1.55 (0.87-1.13)
[2018-11-12 09:58] LABS: Partial Thromboplastin Time 30.1 Sec. (24.2-36.6)
[2018-11-12] MEDS ORDERED: ZOSYN/NS 4.5GM/100ML 4.5 GM/100 ML VIAL IV SCH (10:00)
[2018-11-12] MEDS ORDERED: VANCOMYCIN PHARMACY TO DOSE IV SCH (10:00)
[2018-11-12 10:04] LABS: Hematocrit 28.7 % (30.3-42.9); Hemoglobin 8.4 gm/dl (10.1-14.3)
[2018-11-12 10:12] LABS: Alanine Aminotransferase 41 units/L (7-56)
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
[2018-11-12] MEDS ORDERED: LASIX IV ONE (11:20)
--- NOTE | 2018-11-12 14:40 | Cat Scan Report ---
CTA CHEST WITH CONTRAST INDICATION : dypsnea. TECHNIQUE: Axial imaging performed through the chest, with contrast bolus timing set to maximize opa cification of the pulmonary arteries. Sagittal and coronal reformatted images. 3-plane MIP reformatte d images were obtained. All CT scans at this location are performed using CT dose reduction for ALAR A by means of automated exposure control. 100 mL of intravenous contrast administered. COMPARISON: CTA chest report dated 07/03/2018 FINDINGS: Bolus: Contrast bolus timing is adequate. PTE: No filling defect is present to suggest PTE. Mediastinum: Moderate to severe cardiomegaly is evident. No pericardial effusion. The aorta, tracheo bronchial tree and esophagus are unremarkable. Normal thyroid. No pathologic mediastinal adenopathy. Lungs: Patchy infiltration is noted in the posterior and lateral right lower lobe and right middle l obe. This appears to be unchanged since the previous CTA report. No consolidation, pleural effusion o r pneumothorax. Bones: Degenerative changes in the spine with nothing acute. Upper abdomen: Limited imaging of the upper abdomen shows nothing acute. IMPRESSION: No evidence for pulmonary embolus. Moderate to severe cardiomegaly. Right lung infiltrates or atelectasis as described. Signer Name: Stanley Vega Jr, MD Signed: 11/12/2018 2:36 PM Workstation Name: [id number]
[2018-11-12 17:00] VITALS: BP 136/82
== END 2018-11-12 17:00 | disposition admitted as inpatient to this hospital (09) ==
LOC: ED 08:30
DX: I11.0 Hypertensive heart disease with heart failure (principal); I50.9 Heart failure, unspecified; I48.91 Unspecified atrial fibrillation; Z79.01 Long term (current) use of anticoagulants; Z79.82 Long term (current) use of aspirin; Z79.899 Other long term (current) drug therapy; Z98.890 Other specified postprocedural states
CPT/HCPCS: 36415; 71045; 71275; 80053; 83880; 84484; 85025; 85379; 85610; 85730; 93005; 93010; 96374; 99285; J1940; Q9967

== ENCOUNTER 2019-01-08 19:37 | Inpatient (IN) | payer MEDICARE ==
--- NOTE | 2019-01-08 19:56 | Event Note ---
ED Screening Note Date of service: 01/08/19 Time: 19:54 ED Screening Note: Pt complains of chest pain and SOB x 3pm nitro helped some with CP states abdomen feels full, denies leg swelling Ddenies hx of NM/CVA/DVT/PE hx CHF, HTN denies smoking or fever This initial assessment/diagnostic orders/clinical plan/treatment(s) is/are subject to change based on patients health status, clinical progression and re- assessment by fellow clinical providers in the ED. Further treatment and workup at subsequent clinical providers discretion. Patient/guardian urged not to elope from the ED as their condition may be serious if not clinically assessed and managed. Initial orders include:
[2019-01-08] MEDS ORDERED: IPRATROPIUM/ALBUTEROL SULFATE 3 ML AMPUL.NEB IH ONE (19:57)
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
[2019-01-08] MEDS ORDERED: ASPIRIN 325 MG TAB PO ONE (20:46)
[2019-01-08 21:04] LABS: Alanine Aminotransferase 53 units/L (7-56); Albumin 3.6 g/dL (3.9-5); BUN/Creatinine Ratio 19; Blood Urea Nitrogen 17 mg/dL (7-17); Calcium 9.1 mg/dL (8.4-10.2); Hemolysis Index 3
--- NOTE | 2019-01-08 21:09 | XRay Report ---
CHEST 1 VIEW 01/08/2019 8:09 PM INDICATION / CLINICAL INFORMATION: cp. sob. COMPARISON: Chest x-ray 11/12/2018 FINDINGS: SUPPORT DEVICES: None. HEART / MEDIASTINUM: Cardiac silhouette remains markedly enlarged, unchanged. LUNGS / PLEURA: No significant pulmonary or pleural abnormality. No pneumothorax. ADDITIONAL FINDINGS: No significant additional findings. IMPRESSION: 1. Stable cardiomegaly without CHF Signer Name: Baltazar Saucedo MD Signed: 01/08/2019 9:05 PM Workstation Name: [id number]
[2019-01-08] MEDS ORDERED: FUROSEMIDE 40 MG/4 ML INJ IV ONE (22:02)
[2019-01-08] MEDS ORDERED: MORPHINE 2 MG/1 ML INJ IV PRN (22:42)
[2019-01-08] MEDS ORDERED: ACETAMINOPHEN 325 MG TAB PO PRN (22:43)
[2019-01-08] MEDS ORDERED: ONDANSETRON 4 MG/2 ML INJ IV PRN (22:43)
[2019-01-08] MEDS ORDERED: NITROGLYCERIN 0.4 MG TAB SUBL SL PRN (22:44)
[2019-01-08 23:25] LABS: Mean Corpuscular HGB Conc 30 % (30-34); Mean Corpuscular Volume 71 fl (79-97); Platelet Count 296 K/mm3 (140-440); Red Blood Count 3.94 M/mm3 (3.65-5.03)
[2019-01-08 23:42] LABS: Hemoglobin 8.3 gm/dl (10.1-14.3); Red Cell Distribution Width 22.4 % (13.2-15.2)
[2019-01-09] MEDS: CARVEDILOL 12.5 MG TAB PO SCH ×3 (00:54→21:20)
[2019-01-09 05:58] LABS: Creatine Kinase MB 1.9 ng/mL (0.0-4.0)
[2019-01-09] MEDS: NITROGLYCERIN 2% OINT 1 GM TP SCH ×3 (06:03→20:57)
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
--- NOTE | 2019-01-09 08:50 | Consultation ---
History of Present Illness Consult date: 01/09/19 Consult reason: chest pain, congestive heart failure History of present illness: Patient is a 63 year old woman with a history of hypertension, nonischemic cardiomyopathy and chronic systolic heart failure. For primary pervention, patient was recommended for a cardiac defibrillator for which she declined. She also has a history of paroxysmal atrial fibrillation and is on eliquis for oral anticoagulation therapy. Her latest cardiac workup was done at [facility] early April. The echocardiogram reports a decreased systolic function, ejection fraction 15-20%, and the thallium showed no ischemia, consistent with a nonischemic cardiomyopathy. A repeat echocardiogram in June reports at least moderate MR, decreased left ventricular systolic function, ejection fraction 15%. Patient does not have routine outpatient follow-up with a primary care physician or tax expert. She intermittently goes to the emergency room for medicines refills. She presents to the hospital with complaints of shortness of breath and chest pain located underneath her left breast associated with nausea. There is no lower extremity edema. Chest x-ray shows marked cardiomegaly but no evidence of interstitial edema. An ECG is sinus rhythm, LVH with secondary repolarization abnormalities. A cardiology consultation has been requested for chest pain and CHF evaluation. Medications and Allergies Allergies Allergy/AdvReac Type Severity Reaction Status Date / Time No Known Allergies Allergy Unverified 06/08/18 07:43 Home Medications Medication Instructions Recorded Confirmed Last Taken Type Apixaban [Eliquis] 5 mg PO Q12HR #60 tablet 11/04/18 01/08/19 Unknown Rx Aspirin [Adult Aspirin] 81 mg PO DAILY #30 tablet. 11/04/18 01/08/19 Unknown Rx AtorvaSTATin [Lipitor] 20 mg PO QHS 01/08/19 01/08/19 Unknown History Carvedilol [Coreg] 12.5 mg PO Q12H 01/08/19 01/08/19 Unknown History Lisinopril [Zestril TAB] 20 mg PO DAILY 01/08/19 01/08/19 Unknown History Nitroglycerin [Nitrostat] 0.4 mg SL Q5M 01/08/19 01/08/19 Unknown History Torsemide [Demadex] 40 mg PO DAILY 01/08/19 01/08/19 Unknown History Active Meds: Active Medications Acetaminophen (Tylenol) 650 mg PO Q4H PRN PRN Reason: Headache Apixaban (Eliquis) 5 mg PO Q12HR [facility]; Protocol Aspirin (Halfprin Ec) 81 mg PO DAILY [facility] Atorvastatin Calcium (Lipitor) 20 mg PO QHS [facility] Carvedilol (Coreg) 12.5 mg PO Q12HR [facility] Last Admin: 01/09/19 00:54 Dose: 12.5 mg Documented by: Furosemide (Lasix) 40 mg IV QDAY [facility] Lisinopril (Zestril) 20 mg PO DAILY [facility] Morphine Sulfate (Morphine) 2 mg IV Q3H PRN PRN Reason: Pain, Moderate (4-6) Nitroglycerin (Nitro-Bid 2%) 0.5 inch TP QIDNTG [facility]; Protocol Last Admin: 01/09/19 06:03 Dose: 0.5 inch Documented by: Nitroglycerin (Nitrostat) 0.4 mg SL .Q5MIN PRN PRN Reason: Chest Pain Ondansetron HCl (Zofran) 4 mg IV Q8H PRN PRN Reason: Nausea And Vomiting Physical Examination Vital Signs Temp Pulse Resp BP Pulse Ox 98.8 F 97 H 16 133/83 96 01/08/19 19:42 01/08/19 19:42 01/08/19 19:42 01/08/19 19:42 01/08/19 19:42 General appearance: no acute distress HEENT: Positive: PERRL Neck: Positive: trachea midline Cardiac: Positive: Reg Rate and Rhythm Lungs: Positive: Decreased Breath Sounds Neuro: Positive: Grossly Intact Extremities: Absent: edema Results 01/08/19 22:41 01/08/19 20:25 Cardiac Enzymes 01/08/19 01/09/19 01/09/19 Range/Units 20:25 00:25 05:26 AST 70 H (5-40) units/L CK-MB (CK-2) 2.0 1.9 (0.0-4.0) ng/mL CBC 01/08/19 Range/Units 22:41 WBC 7.4 (4.5-11.0) K/mm3 RBC 3.94 (3.65-5.03) M/mm3 Hgb 8.3 L (10.1-14.3) gm/dl Hct 28.0 L (30.3-42.9) % Plt Count 296 (140-440) K/mm3 Comprehensive Metabolic Panel 01/08/19 Range/Units 20:25 Sodium 138 (137-145) mmol/L Potassium 4.2 (3.6-5.0) mmol/L Chloride 99.8 (98-107) mmol/L Carbon Dioxide 27 (22-30) mmol/L BUN 17 (7-17) mg/dL Creatinine 0.9 (0.7-1.2) mg/dL Glucose 93 (65-100) mg/dL Calcium 9.1 (8.4-10.2) mg/dL AST 70 H (5-40) units/L ALT 53 (7-56) units/L Alkaline Phosphatase 73 (35-129) units/L Total Protein 7.4 (6.3-8.2) g/dL Albumin 3.6 L (3.9-5) g/dL Assessment and Plan Atypical chest pain Chronic systolic heart failure Non-ischemic cardiomyopathy previously declined AICD for primary prevention Paroxysmal atrial fibrillation on eliquis for oral anticoagulation Anemia Noncompliant with outpatient follow ups No ischemia by MPI at [facility] April 2018. A repeat echocardiogram in June reports at least moderate MR, decreased left ventricular systolic function, ejection fraction 15%.
[2019-01-09] MEDS ORDERED: ASPIRIN 325 MG TAB PO SCH (10:00)
[2019-01-09] MEDS ORDERED: HEPARIN 5,000 UNIT/1 ML VIAL SUB-Q SCH (10:00)
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
[2019-01-09] MEDS: APIXABAN 5 MG TAB PO SCH ×2 (10:53→21:20)
[2019-01-09] MEDS: SPIRONOLACTONE 25 MG TAB PO SCH (10:53)
[2019-01-09] MEDS: FUROSEMIDE 40 MG/4 ML INJ IV SCH (10:54)
[2019-01-09] MEDS: ASPIRIN EC 81 MG TAB PO SCH (10:54)
[2019-01-09] MEDS: LISINOPRIL 20 MG TAB PO SCH (10:54)
[2019-01-09 20:08] LABS: Creatine Kinase MB 1.8 ng/mL (0.0-4.0)
[2019-01-10] MEDS: NITROGLYCERIN 2% OINT 1 GM TP SCH ×4 (05:36→18:00)
--- NOTE | 2019-01-10 09:20 | Progress Note ---
<BEKAHZENAIDASAMARIA - Last Filed: 01/10/19 09:19> Assessment and Plan Atypical chest pain Chronic systolic heart failure Non-ischemic cardiomyopathy previously declined AICD for primary prevention Paroxysmal atrial fibrillation on eliquis for oral anticoagulation Anemia Noncompliant with dietary indiscretion and outpatient follow ups No ischemia by MPI at [facility] April 2018. A repeat echocardiogram in June reports at least moderate MR, decreased left ventricular systolic function, ejection fraction 15%. Recommendations: Advised fluid/sodium restriction. Continue optimal guidelines directed medical therapy for chronic systolic left ventricular dysfunction. Continue oral anticoagulation for paroxysmal atrial fibrillation. Otherwise conservative cardiac management. Subjective Date of service: 01/10/19 Interval history: Patient has no complaints. Objective Vital Signs Temp Pulse Resp BP Pulse Ox 01/10/19 07:39 98.2 F 18 127/79 01/10/19 04:06 97.8 F 84 18 113/61 97 01/10/19 00:00 87 01/09/19 23:44 97.0 F L 85 18 115/66 98 01/09/19 23:25 18 01/09/19 19:32 98.5 F 88 20 130/74 98 01/09/19 16:00 78 01/09/19 12:45 97.8 F 86 18 118/74 96 01/09/19 12:32 96 01/09/19 09:44 98.4 F 87 18 120/53 97 - Physical Examination General: No Apparent Distress HEENT: Positive: PERRL Neck: Positive: trachea midline Cardiac: Positive: Reg Rate and Rhythm Lungs: Positive: Decreased Breath Sounds Neuro: Positive: Grossly Intact Extremities: Absent: edema - Labs and Meds Cardiac Enzymes 01/09/19 01/09/19 Range/Units 13:16 18:44 CK-MB (CK-2) 2.0 1.8 (0.0-4.0) ng/mL <ANA RICHARDS - Last Filed: 01/10/19 20:35> Assessment and Plan I have seen and evaluated the patient and agree with the assessment and plan. Objective Vital Signs Temp Pulse Resp BP Pulse Ox 01/10/19 19:43 98.9 F 89 20 134/74 97 01/10/19 18:00 90 138/78 01/10/19 16:49 98.0 F 18 134/80 01/10/19 14:33 90 127/79 01/10/19 12:09 97.5 F L 92 H 18 128/76 90 01/10/19 10:00 18 01/10/19 09:27 91 H 127/79 01/10/19 09:21 91 H 127/91 01/10/19 08:00 85 01/10/19 07:39 98.2 F 18 127/79 01/10/19 04:06 97.8 F 84 18 113/61 97 01/10/19 00:00 87 01/09/19 23:44 97.0 F L 85 18 115/66 98 01/09/19 23:25 18
[2019-01-10] MEDS: SPIRONOLACTONE 25 MG TAB PO SCH (09:21)
[2019-01-10] MEDS: CARVEDILOL 12.5 MG TAB PO SCH (09:21)
[2019-01-10] MEDS: APIXABAN 5 MG TAB PO SCH (09:21)
[2019-01-10] MEDS: LISINOPRIL 20 MG TAB PO SCH (09:21)
[2019-01-10] MEDS: ASPIRIN EC 81 MG TAB PO SCH (09:22)
[2019-01-10] MEDS: FUROSEMIDE 40 MG/4 ML INJ IV SCH (09:22)
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
[2019-01-10 20:10] VITALS: BP 134/74
== END 2019-01-10 20:25 | disposition home or self-care (01) | DRG 292 ==
LOC: ED 19:37 → 4A 22:12
PROVIDERS: ADMIT Internal Medicine; ATTEND Internal Medicine
DX: I11.0 Hypertensive heart disease with heart failure (principal); R18.8 Other ascites; D68.59 Other primary thrombophilia; R07.89 Other chest pain; I50.23 Acute on chronic systolic (congestive) heart failure; I42.8 Other cardiomyopathies; D64.9 Anemia, unspecified; I48.0 Paroxysmal atrial fibrillation; R09.02 Hypoxemia; Z71.89 Other specified counseling; Z95.810 Presence of automatic (implantable) cardiac defibrillator; Z79.01 Long term (current) use of anticoagulants; Z91.14 Patient's other noncompliance with medication regimen; Z79.82 Long term (current) use of aspirin; Z79.899 Other long term (current) drug therapy
CPT/HCPCS: 36415; 71045; 80053; 82550; 82553; 83880; 84484; 85027; 87116; 93005; 93010; 94760; 96374; G0378; A9270-GY; J1940

== ENCOUNTER 2019-02-25 19:27 | Inpatient (IN) | payer MEDICARE ==
--- NOTE | 2019-02-25 20:13 | Event Note ---
ED Screening Note Date of service: 02/25/19 Time: 20:07 ED Screening Note: 63 yo female with PMH of CHF states she was out of her last x 1 week. At 6pm she developed chest pain, cough and SOB. This initial assessment/diagnostic orders/clinical plan/treatment(s) is/are subject to change based on patients health status, clinical progression and re- assessment by fellow clinical providers in the ED. Further treatment and workup at subsequent clinical providers discretion. Patient/guardian urged not to elope from the ED as their condition may be serious if not clinically assessed and managed. Initial orders include:
--- NOTE | 2019-02-25 20:48 | XRay Report ---
CHEST 2 VIEWS INDICATION / CLINICAL INFORMATION: SOB. COMPARISON: 01/08/2019 FINDINGS: SUPPORT DEVICES: None. HEART / MEDIASTINUM: Cardiomegaly LUNGS / PLEURA: Focal airspace disease in the right lower lung No pneumothorax. ADDITIONAL FINDINGS: No significant additional findings. IMPRESSION: Cardiomegaly unchanged from 01/08/2019. Focal airspace disease in the right lower lung could represen t early pneumonia Signer Name: Zi Haro MD FACR Signed: 02/25/2019 8:43 PM Workstation Name: [id number]
[2019-02-25] MEDS ORDERED: ACETAMINOPHEN 500 MG TAB PO ONE (21:33)
[2019-02-25] MEDS ORDERED: FAMOTIDINE 20 MG/2 ML INJ IV ONE (21:33)
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
[2019-02-25 21:58] LABS: Hematocrit 28.8 % (30.3-42.9); Hemoglobin 8.7 gm/dl (10.1-14.3); Mean Corpuscular HGB Conc 30 % (30-34); Mean Corpuscular Volume 72 fl (79-97); Platelet Count 313 K/mm3 (140-440); Red Blood Count 3.99 M/mm3 (3.65-5.03); Red Cell Distribution Width 21.3 % (13.2-15.2)
[2019-02-25 22:02] LABS: INR 1.27 (0.87-1.13)
[2019-02-25 22:03] LABS: Partial Thromboplastin Time 29.2 Sec. (24.2-36.6)
[2019-02-25 22:22] LABS: Alanine Aminotransferase 40 units/L (7-56); BUN/Creatinine Ratio 23; Blood Urea Nitrogen 21 mg/dL (7-17); Calcium 9.4 mg/dL (8.4-10.2); Hemolysis Index 15
[2019-02-25] MEDS ORDERED: FUROSEMIDE 40 MG/4 ML INJ IV ONE (22:27)
[2019-02-25] MEDS ORDERED: ASPIRIN 81 MG TAB CHEW PO ONE (22:41)
[2019-02-25] MEDS ORDERED: ONDANSETRON 4 MG/2 ML INJ IV PRN (23:06)
[2019-02-25] MEDS ORDERED: ALBUTEROL 2.5 MG/3 ML NEBU IH PRN (23:06)
[2019-02-25] MEDS ORDERED: oxyCODONE /ACETAMINOPHEN 5-325MG TAB PO PRN (23:06)
[2019-02-25] MEDS ORDERED: ACETAMINOPHEN 325 MG TAB PO PRN (23:06)
[2019-02-25] MEDS ORDERED: NITROGLYCERIN 0.4 MG TAB SUBL SL PRN (23:08)
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
[2019-02-25] MEDS ORDERED: FUROSEMIDE 40 MG/4 ML INJ ONE (23:46)
[2019-02-25] MEDS ORDERED: ASPIRIN 81 MG TAB CHEW ONE (23:46)
[2019-02-26] MEDS: carvediloL 12.5 MG TAB PO SCH ×3 (00:33→21:58)
[2019-02-26] MEDS ORDERED: carvediloL 25 MG TAB ONE (00:34)
[2019-02-26 05:51] LABS: Basophils % (Auto) 0.7 % (0.0-1.8); Eosinophils % (Auto) 0.6 % (0.0-4.3); Hemoglobin 7.8 gm/dl (10.1-14.3); Lymphocytes # (Auto) 2.2 K/mm3 (1.2-5.4); Lymphocytes % (Auto) 32.5 % (13.4-35.0); Mean Corpuscular HGB Conc 30 % (30-34); Mean Corpuscular Volume 72 fl (79-97); Monocytes # (Auto) 0.7 K/mm3 (0.0-0.8); Monocytes % (Auto) 11.1 % (0.0-7.3); Platelet Count 280 K/mm3 (140-440); Red Blood Count 3.61 M/mm3 (3.65-5.03)
[2019-02-26 05:53] LABS: Red Cell Distribution Width 21.3 % (13.2-15.2)
[2019-02-26] MEDS ORDERED: PIPERACILLIN/TAZOBACTAM 3.375 3.375 GM/50 ML BAG IV SCH (06:00)
[2019-02-26] MEDS: FUROSEMIDE 40 MG/4 ML INJ IV SCH ×2 (06:06→18:38)
[2019-02-26 06:07] LABS: Creatine Kinase MB 2.8 ng/mL (0.0-4.0)
[2019-02-26 06:16] LABS: BUN/Creatinine Ratio 23; Blood Urea Nitrogen 21 mg/dL (7-17); Calcium 8.8 mg/dL (8.4-10.2); Hemolysis Index 0
[2019-02-26] MEDS: cefTRIAXone/NS 1 GM/50 ML 1 GM/50 ML BAG IV SCH (09:04)
[2019-02-26] MEDS: ASPIRIN EC 81 MG TAB PO SCH (09:05)
[2019-02-26] MEDS: AZITHROMYCIN 250 MG TAB PO SCH (09:05)
[2019-02-26] MEDS: LISINOPRIL 20 MG TAB PO SCH (09:05)
[2019-02-26] MEDS: DOCUSATE SODIUM 100 MG CAP PO SCH ×2 (09:05→21:58)
[2019-02-26] MEDS: APIXABAN 5 MG TAB PO SCH ×2 (09:06→21:58)
[2019-02-26] MEDS: SPIRONOLACTONE 25 MG TAB PO SCH (09:16)
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
--- NOTE | 2019-02-26 13:45 | Progress Note ---
Assessment and Plan Assessment and plan: 63-year-old -[place] female with history of hypertension, systolic heart failure with EF 15%, GERD, pleural effusion status post paracentesis, dilated nonischemic cardiomyopathy, paroxysmal A. fib on anticoagulation who presents [facility] ED with complaints of chest pain and difficulty in breathing. The time of examination patient is sitting up in stretcher on supplemental oxygen. Her breathing is slightly labored. She is able to talk complete sentences and maintain conversation. The saturation has 96% on 2 L supplemental oxygen. Acute Exacerbation CHF -EF 15% seen on Echo (06/28) [place] [address] -Troponin negative 1, will repeat -CXR shows: Cardiomegaly unchanged from imaging done on 01/08/2019 -Continue IV Lasix 40mg BID -Hx dilated nonischemic cardiomyopathy -On ASA, UGO, BB -Continue supportive care -Cardiology consulted SIRS No clear evidence of sepsis -HR 114bpm, RR 31 bpm -Right lower lobe pneumonia-doubt, will repeat xray -On Abx ?Pneumonia -CXR shows Focal airspace disease in the right lower lung could represent early pneumonia -Blood Cultures pending -Start on IV Rocephin, by mouth azithromycin Chronic Hypoxic respiratory failure -Baseline home oxygen requirements of 2L NC prn -Currently on supplemental -Monitor saturations -Continue supplemental oxygen wean as tolerated Acute Atypical Chest Pain -Continuous telemetry monitoring -Continue supportive care -Pain mgmt -Cardiac Enzymes negative will continue to trend -EKG unrevealing for acute ischemic abnormalities -on ASA and Statin -Cardiology consulted HTN -Monitor BP -Resume home hypertensive meds Hx Paroxysmal atrial fibrillation -Anticoagulated on Eliquis -On continuous telemetry monitoring DVT PPX -On Eliquis and ASA -SCD's History Interval history: Patient seen and examined, Reports some improvement in shortness of breath, but no chest pain. Hospitalist Physical - Physical exam Narrative exam: VITAL SIGNS: Reviewed. GENERAL: The patient appears normally developed, Vital signs as documented. HEAD: No signs of head trauma. EYES: Pupils are equal. Extraocular motions intact. EARS: Hearing grossly intact. MOUTH: Oropharynx is normal. NECK: No adenopathy, no JVD. CHEST: Chest with diminished breath sounds bilaterally. No wheezes, rales, or rhonchi. CARDIAC: Regular rate and rhythm. S1 and S2, without murmurs, gallops, or rubs. VASCULAR: No Edema. Peripheral pulses normal and equal in all extremities. ABDOMEN: Soft, non tender and non distended. No rebound or guarding, and no masses palpated. Bowel Sounds normal. MUSCULOSKELETAL: Good range of motion of all major joints. Extremities without clubbing, cyanosis or edema. NEUROLOGIC EXAM: Alert and oriented x 3 No focal sensory or strength deficits. Speech normal. Follows commands. PSYCHIATRIC: Mood normal. SKIN: detail exam as documented in skin assessment - Constitutional Vitals: Temp Pulse Resp BP Pulse Ox 98.0 F 95 H 18 133/82 95 02/26/19 11:06 02/26/19 11:06 02/26/19 13:00 02/26/19 11:06 02/26/19 11:06 General appearance: Present: no acute distress Results - Labs CBC & Chem 7: 02/26/19 04:41 02/26/19 04:41 Labs: Laboratory Last Values WBC 6.7 K/mm3 (4.5-11.0) 02/26/19 04:41 RBC 3.61 M/mm3 (3.65-5.03) L 02/26/19 04:41 Hgb 7.8 gm/dl (10.1-14.3) L 02/26/19 04:41 Hct 26.0 % (30.3-42.9) L 02/26/19 04:41 MCV 72 fl (79-97) L 02/26/19 04:41 MCH 22 pg (28-32) L 02/26/19 04:41 MCHC 30 % (30-34) 02/26/19 04:41 RDW 21.3 % (13.2-15.2) H 02/26/19 04:41 Plt Count 280 K/mm3 (140-440) 02/26/19 04:41 Lymph % (Auto) 32.5 % (13.4-35.0) 02/26/19 04:41 [place] % (Auto) 11.1 % (0.0-7.3) H 02/26/19 04:41 Eos % (Auto) 0.6 % (0.0-4.3) 02/26/19 04:41 Baso % (Auto) 0.7 % (0.0-1.8) 02/26/19 04:41 Lymph # 2.2 K/mm3 (1.2-5.4) 02/26/19 04:41 [place] # 0.7 K/mm3 (0.0-0.8) 02/26/19 04:41 Eos # 0.0 K/mm3 (0.0-0.4) 02/26/19 04:41 Baso # 0.0 K/mm3 (0.0-0.1) 02/26/19 04:41 Seg Neutrophils % 55.1 % (40.0-70.0) 02/26/19 04:41 Seg Neutrophils # 3.7 K/mm3 (1.8-7.7) 02/26/19 04:41 PT 16.1 Sec. (12.2-14.9) H 02/25/19 21:37 INR 1.27 (0.87-1.13) H 02/25/19 21:37 APTT 29.2 Sec. (24.2-36.6) 02/25/19 21:37 Sodium 141 mmol/L (137-145) 02/26/19 04:41 Potassium 3.4 mmol/L (3.6-5.0) L 02/26/19 04:41 Chloride 100.8 mmol/L (98-107) 02/26/19 04:41 Carbon Dioxide 26 mmol/L (22-30) 02/26/19 04:41 Anion Gap 18 mmol/L 02/26/19 04:41 BUN 21 mg/dL (7-17) H 02/26/19 04:41 Creatinine 0.9 mg/dL (0.7-1.2) 02/26/19 04:41 Estimated GFR > 60 ml/min 02/26/19 04:41 BUN/Creatinine Ratio 23 % 02/26/19 04:41 Glucose 126 mg/dL (65-100) H 02/26/19 04:41 Lactic Acid 1.60 mmol/L (0.7-2.0) 02/25/19 21:37 Calcium 8.8 mg/dL (8.4-10.2) 02/26/19 04:41 Magnesium 2.10 mg/dL (1.7-2.3) 02/25/19 21:37 Total Bilirubin 0.90 mg/dL (0.1-1.2) 02/25/19 21:37 AST 48 units/L (5-40) H 02/25/19 21:37 ALT 40 units/L (7-56) 02/25/19 21:37 Alkaline Phosphatase 73 units/L (35-129) 02/25/19 21:37 Total Creatine Kinase 114 units/L (30-135) 02/26/19 04:41 CK-MB (CK-2) 2.8 ng/mL (0.0-4.0) 02/26/19 04:41 CK-MB (CK-2) Rel Index 2.4 (0-4) 02/26/19 04:41 Troponin T < 0.010 ng/mL (0.00-0.029) 02/26/19 04:41 NT-Pro-B Natriuret Pep 98902 pg/mL (0-900) H 02/25/19 21:37 Total Protein 8.1 g/dL (6.3-8.2) 02/25/19 21:37 Albumin 4.0 g/dL (3.9-5) 02/25/19 21:37 Albumin/Globulin Ratio 1.0 % 02/25/19 21:37 Active Medications - Current Medications Current Medications: Generic Name Dose Route Start Last Admin Trade Name Freq PRN Reason Stop Dose Admin Acetaminophen 650 mg 02/25/19 23:06 Tylenol PO Q4H PRN Pain MILD(1-3)/Fever >100.5/MERA Albuterol 2.5 mg 02/25/19 23:06 Proventil IH Q3HRT PRN Shortness Of Breath Apixaban 5 mg 02/26/19 10:00 02/26/19 09:06 Eliquis PO 5 mg Q12HR TERESA Administration Protocol Aspirin 81 mg 02/26/19 10:00 02/26/19 09:05 Halfprin Ec PO 81 mg DAILY TERESA Administration Atorvastatin Calcium 20 mg 02/26/19 22:00 Lipitor PO QHS TERESA Azithromycin 500 mg 02/26/19 10:00 02/26/19 09:05 Zithromax PO 500 mg QDAY TERESA Administration Carvedilol 12.5 mg 02/25/19 23:45 02/26/19 09:06 Coreg PO 12.5 mg Q12HR TERESA Administration Docusate Sodium 100 mg 02/26/19 10:00 02/26/19 09:05 Colace PO 100 mg BID TERESA Administration Furosemide 40 mg 02/26/19 06:00 02/26/19 06:06 Lasix IV 40 mg 0600,1800 TERESA Administration Ceftriaxone Sodium 1 gm in 50 mls @ 100 mls/hr 02/26/19 10:00 02/26/19 09:04 Rocephin/Ns 1 Gm/50 Ml IV 100 mls/hr Q24HR TERESA Administration Protocol Lisinopril 20 mg 02/26/19 10:00 02/26/19 09:05 Zestril PO 20 mg DAILY TERESA Administration Nitroglycerin 0.4 mg 02/25/19 23:08 Nitrostat SL .Q5MIN PRN Chest Pain Ondansetron HCl 4 mg 02/25/19 23:06 Zofran IV Q6H PRN Nausea And Vomiting Oxycodone/Acetaminophen 1 tab 02/25/19 23:06 Percocet 5/325 PO Q6H PRN Pain, Moderate (4-6) Sodium Chloride 10 ml 02/26/19 10:00 02/26/19 09:06 Sodium Chloride Flush Syringe 10 Ml IV 10 ml BID TERESA Administration Sodium Chloride 10 ml 02/25/19 23:06 02/26/19 06:07 Sodium Chloride Flush Syringe 10 Ml IV 10 ml PRN PRN Administration LINE FLUSH Spironolactone 25 mg 02/26/19 10:00 02/26/19 09:16 Aldactone PO 25 mg QDAY TERESA Administration
--- NOTE | 2019-02-26 14:30 | XRay Report ---
CHEST 2 VIEWS INDICATION / CLINICAL INFORMATION: pneumonia. COMPARISON: 02/25/2019 FINDINGS: SUPPORT DEVICES: None. HEART / MEDIASTINUM: Cardiomegaly LUNGS / PLEURA: No significant pulmonary or pleural abnormality. No pneumothorax. ADDITIONAL FINDINGS: No significant additional findings. IMPRESSION: Focal airspace disease in the right lower lung has improved since yesterday. No other significant int erval change. Signer Name: Zi Haro MD FACR Signed: 02/26/2019 2:25 PM Workstation Name: [id number]
[2019-02-27] MEDS: FUROSEMIDE 40 MG/4 ML INJ IV SCH (05:01)
[2019-02-27] MEDS: DOCUSATE SODIUM 100 MG CAP PO SCH (09:41)
[2019-02-27] MEDS: LISINOPRIL 20 MG TAB PO SCH (09:41)
[2019-02-27] MEDS: carvediloL 12.5 MG TAB PO SCH (09:41)
[2019-02-27] MEDS: ASPIRIN EC 81 MG TAB PO SCH (09:41)
[2019-02-27] MEDS: APIXABAN 5 MG TAB PO SCH (09:42)
[2019-02-27] MEDS: cefTRIAXone/NS 1 GM/50 ML 1 GM/50 ML BAG IV SCH (09:42)
[2019-02-27] MEDS: SPIRONOLACTONE 25 MG TAB PO SCH (09:42)
[2019-02-27] MEDS: AZITHROMYCIN 250 MG TAB PO SCH (09:42)
--- NOTE | 2019-02-27 12:11 | Progress Note ---
Assessment and Plan Chronic systolic heart failure Pneumonia Non-ischemic cardiomyopathy previously declined AICD for primary prevention Paroxysmal atrial fibrillation on eliquis for oral anticoagulation Anemia No ischemia by MPI at [facility] April 2018. A repeat echocardiogram in June reports at least moderate MR, decreased left ventricular systolic function, ejection fraction 15%. Recommendations: Continue fluid/sodium restriction. Continue medical therapy for chronic systolic left ventricular dysfunction. Continue oral anticoagulation for paroxysmal atrial fibrillation. Subjective Date of service: 02/27/19 Interval history: Patient reports her breathing is improving. Objective Vital Signs Temp Pulse Resp BP Pulse Ox 02/27/19 09:42 86 125/82 02/27/19 09:41 86 125/82 02/27/19 08:48 98.2 F 89 125/82 92 02/27/19 08:00 77 02/27/19 07:43 18 98 02/27/19 05:01 20 02/27/19 03:23 98.3 F 82 18 137/78 90 02/27/19 02:00 82 02/26/19 23:56 98.3 F 82 20 127/81 97 02/26/19 21:58 91 H 139/84 02/26/19 21:00 18 02/26/19 19:45 97.8 F 91 H 20 139/84 98 02/26/19 16:29 98.0 F 91 H 18 125/78 99 02/26/19 13:00 18 - Physical Examination General: No Apparent Distress HEENT: Positive: PERRL Neck: Positive: trachea midline Cardiac: Positive: Reg Rate and Rhythm Lungs: Positive: Decreased Breath Sounds Neuro: Positive: Grossly Intact
[2019-02-27 12:23] VITALS: BP 123/82
--- NOTE | 2019-02-27 12:27 | Discharge Summary ---
Providers - Providers Date of Admission: 02/25/19 23:06 Attending physician: VARSHA ESPINOZA MD 02/25/19 23:06 Consult to Physician [CONS] Routine Comment: Consulting Provider: KENNEDY GAONA Physician Instructions: Reason For Exam: AE CHF Primary care physician: [employer]ET[employer] MANAGER Hospitalization Reason for admission: SHORTNESS OF BREATH Condition: Stable Hospital course: 63-year-old -[place] female with history of hypertension, systolic heart failure with EF 15%, GERD, pleural effusion status post paracentesis, dilated nonischemic cardiomyopathy, paroxysmal A. fib on anticoagulation who presents [facility] ED with complaints of chest pain and difficulty in breathing. The time of examination patient is sitting up in stretcher on supplemental oxygen. Her breathing is slightly labored. She is able to talk complete sentences and maintain conversation. The saturation has 96% on 2 L supplemental oxygen. * Patient was treated with lasix with cardiology consulted and agreed with treatment * The patient currently is clinical stable * Imaging study reveals no Pneumonia as prior note infiltrate is improving. * She had one episode of nausea with vomiting after antibiotics which has since resolved * No ischemia by MPI at [facility] April 2018. * A repeat echocardiogram in June reports at least moderate MR, decreased left ventricular systolic function, ejection fraction 15%. Acute Exacerbation CHF -EF 15% seen on Echo (06/28) SIRS No clear evidence of sepsis Chronic Hypoxic respiratory failure Acute Atypical Chest Pain Secondary to costochondritis HTN -Monitor BP Paroxysmal atrial fibrillation -Anticoagulated on Eliquis Non-ischemic cardiomyopathy previously declined AICD for primary prevention Anemia Disposition: -01 TO HOME OR SELFCARE Time spent for discharge: 35 MINS Core Measure Documentation - Palliative Care Palliative Care/ Comfort Measures: Not Applicable - Core Measures Any of the following diagnoses?: none Exam - Physical Exam Narrative exam: VITAL SIGNS: Reviewed. GENERAL: The patient appears normally developed, Vital signs as documented. HEAD: No signs of head trauma. EYES: Pupils are equal. Extraocular motions intact. EARS: Hearing grossly intact. MOUTH: Oropharynx is normal. NECK: No adenopathy, no JVD. CHEST: Chest with diminished breath sounds bilaterally. No wheezes, rales, or rhonchi. CARDIAC: Regular rate and rhythm. S1 and S2, without murmurs, gallops, or rubs. VASCULAR: No Edema. Peripheral pulses normal and equal in all extremities. ABDOMEN: Soft, non tender and non distended. No rebound or guarding, and no masses palpated. Bowel Sounds normal. MUSCULOSKELETAL: Good range of motion of all major joints. Extremities without clubbing, cyanosis or edema. NEUROLOGIC EXAM: Alert and oriented x 3 No focal sensory or strength deficits. Speech normal. Follows commands. PSYCHIATRIC: Mood normal. SKIN: detail exam as documented in skin assessment - Constitutional Vitals: Temp Pulse Resp BP Pulse Ox 97.7 F 80 24 123/82 96 02/27/19 12:22 02/27/19 12:22 02/27/19 12:22 02/27/19 12:22 02/27/19 12:22 Plan Activity: advance as tolerated, fall precautions Diet: low fat Special Instructions: record daily BP diary Follow up with: PRIMARY CAREMD [Primary Care Provider] - 3-5 Days LYDIA QUEZADA MD [Staff Physician] - 7 Days Prescriptions: Spironolactone [Aldactone] 25 mg PO QDAY #30 tablet Ondansetron [Zofran Odt] 4 mg PO Q8HR #30 tab.[email or web address]
== END 2019-02-27 15:29 | disposition home or self-care (01) | DRG 205 ==
LOC: ED 19:27 → 4A 23:06
PROVIDERS: ADMIT Internal Medicine; ATTEND Internal Medicine
DX: M94.0 Chondrocostal junction syndrome [Tietze] (principal); I50.23 Acute on chronic systolic (congestive) heart failure; I11.0 Hypertensive heart disease with heart failure; J96.11 Chronic respiratory failure with hypoxia; I42.0 Dilated cardiomyopathy; K21.9 Gastro-esophageal reflux disease without esophagitis; I48.0 Paroxysmal atrial fibrillation; D64.9 Anemia, unspecified; F41.9 Anxiety disorder, unspecified; Z72.89 Other problems related to lifestyle; Z79.01 Long term (current) use of anticoagulants; Z79.82 Long term (current) use of aspirin; Z79.899 Other long term (current) drug therapy
CPT/HCPCS: 36415; 71046; 80048; 80053; 82140; 82550; 82553; 83735; 83880; 84484; 85025; 85027; 85610; 85730; 87040; 93005; 93010; G0378; A9270-GY; J0696; J1940; J1956; J2543

== ENCOUNTER 2019-04-29 09:39 | Emergency (ER) | payer MEDICARE ==
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
--- NOTE | 2019-04-29 10:51 | XRay Report ---
CHEST 1 VIEW INDICATION: Chest Pain, sob, hx of chf. COMPARISON: 04/14/2019 FINDINGS: SUPPORT DEVICES: None. HEART / MEDIASTINUM: Persistent cardiac enlargement of moderate severity LUNGS / PLEURA: Bronchovascular markings are prominent No pneumothorax. ADDITIONAL FINDINGS: IMPRESSION: 1. Persistent cardiac enlargement Signer Name: Catalino Garcia MD Signed: 04/29/2019 10:46 AM Workstation Name: [id number]
[2019-04-29 11:30] LABS: Mean Corpuscular HGB Conc 29 % (30-34); Mean Corpuscular Volume 77 fl (79-97); Platelet Count 274 K/mm3 (140-440); Red Blood Count 4.04 M/mm3 (3.65-5.03)
[2019-04-29 11:31] LABS: Hematocrit 31.1 % (30.3-42.9); Red Cell Distribution Width 21.9 % (13.2-15.2)
[2019-04-29 11:36] LABS: INR 1.28 (0.87-1.13); Partial Thromboplastin Time 32.1 Sec. (24.2-36.6)
[2019-04-29 11:38] LABS: Alanine Aminotransferase 173 units/L (7-56); Albumin 3.7 g/dL (3.9-5); BUN/Creatinine Ratio 24; Blood Urea Nitrogen 17 mg/dL (7-17); Calcium 9.3 mg/dL (8.4-10.2); Hemolysis Index 4
[2019-04-29] MEDS ORDERED: FUROSEMIDE 40 MG/4 ML INJ IV ONE (11:53)
--- NOTE | 2019-04-29 12:51 | History and Physical Report ---
History of Present Illness Chief complaint: My breathing just cannot get right History of present illness: 64-year-old female with End Stage Systolic CHF(EF 15%) complicated by Pleural Effusions, Obesity Hypoventilation, Debility, HTN, Paroxysmal atrial fibrillation, debility, chronic respiratory failure on 2 L home oxygen intermittently, debility presents to ED for evaluation. Patient states that she has experienced shortness of breath over the past 1 month with worsening symptoms over the same timeframe with acutely worsening symptoms over the past 2 days. Patient has presented 3 times to the hospital over the past 6 weeks for the aforementioned symptoms. Patient reports shortness of breath, decreased exe rcise tolerance, dyspnea exertion, dyspnea at rest. EMS notified and upon arrival the patient was found to be in distress and subsequently transported to [facility] for further care and evaluation. Patient seen and evaluated in the emergency department. Lab and imaging studies reviewed. Review of the p octavia's chest x-ray shows improvement since prior exam without acute changes. Upon further interviewthe patient acknowledges noncompliance with her supplemental oxygen and reports that she only uses the oxygen for a few hours 1 to 2 days/week. Patient found to have chronic hypoxemic respiratory failure secondary to noncompliance with supplemental oxygen, end-stage systolic CHF (NYHA class IV), debility. Patient requires 5/6 assistance with activities of daily living, is bed bound up to 22 hours/day, has episodes of agitation.patient medically optimized and has poor prognosis. Advanced care planning conducted in ED. Patient discharged home and instructed to follow-up with primary care physician within 1 week. Patient discharged home with hospice care. Past History Past Medical History: atrial fib, heart failure, hypertension Past Surgical History: bowel surgery Social history: single. denies: smoking, alcohol abuse, prescription drug abuse Family history: diabetes, hypertension Medications and Allergies Allergies Allergy/AdvReac Type Severity Reaction Status Date / Time No Known Allergies Allergy Verified 02/25/19 19:29 Home Medications Medication Instructions Recorded Confirmed Last Taken Type Aspirin EC [Halfprin EC] 81 mg PO DAILY #30 tablet 04/18/19 Unknown Rx AtorvaSTATin [Lipitor] 20 mg PO QHS #30 tablet 04/18/19 Unknown Rx Enoxaparin 90 mg SUB-Q Q12HR #60 syringe 04/18/19 Unknown Rx Famotidine [Pepcid] 20 mg PO BID #60 tablet 02/07/20 Unknown Rx Furosemide [Lasix TAB] 40 mg PO QDAY #30 tablet 04/18/19 Unknown Rx Nitroglycerin [Nitrostat] 0.4 mg SL .Q5MIN PRN #30 tablet 04/18/19 Unknown Rx Spironolactone [Aldactone] 12.5 mg PO QDAY #30 tablet 04/18/19 Unknown Rx carvediloL [Coreg] 12.5 mg PO Q12HR #60 tablet 04/18/19 Unknown Rx lisinopriL [Zestril TAB] 20 mg PO DAILY #30 tablet 04/18/19 Unknown Rx LORazepam [Ativan] 0.5 mg PO Q6H PRN #35 tablet 04/29/19 Unknown Rx Review of Systems Constitutional: no weight loss, no weight gain, no fever, no chills Ears, nose, mouth and throat: no ear pain, no ear discharge, no tinnitis, no decreased hearing, no nose pain Cardiovascular: orthopnea, shortness of breath, dyspnea on exertion, paroxysmal nocturnal dyspnea, decreased exercise tolerance, no chest pain Respiratory: no cough, no cough with sputum, no excessive sputum, no hemoptysis Gastrointestinal: no nausea, no vomiting, no diarrhea, no constipation Genitourinary Female: no pelvic pain, no flank pain, no dysuria, no urinary frequency, no urgency Rectal: no pain, no incontinence, no bleeding Musculoskeletal: no neck stiffness, no neck pain, no arm numbness/tingling, no shooting leg pain, no leg numbness/tingling Integumentary: no rash, no pruritis, no redness, no sores, no wounds Neurological: no paralysis, no weakness, no parathesias, no numbness, no tingling Psychiatric: anxiety, no memory loss, no change in sleep habits, no insomnia, no change in appetite, no suicidal ideation Endocrine: no cold intolerance, no heat intolerance, no excessive thirst, no polydipsia, no polyuria, no excessive sweating Hematologic/Lymphatic: no easy bruising, no easy bleeding, no lymphadenopathy, no lymphedema Allergic/Immunologic: no urticaria, no allergic rhinitis, no persistent infections Exam - Constitutional Vitals: Temp Pulse Resp BP Pulse Ox 98.3 F 94 H 31 H 128/87 97 04/29/19 09:59 04/29/19 11:15 04/29/19 11:15 04/29/19 11:15 04/29/19 11:15 General appearance: Present: mild distress - EENT Eyes: Present: PERRL ENT: hearing intact, clear oral mucosa - Neck Neck: Present: supple, masses or JVD - Respiratory Respiratory effort: labored Respiratory: bilateral: diminished, rhonchi - Cardiovascular Heart Sounds: Present: S1 & S2. Absent: rub, click - Extremities Extremities: pulses symmetrical Extremity abnormal: edema Peripheral Pulses: within normal limits - Abdominal General gastrointestinal: Present: soft, non-tender, non-distended, normal bowel sounds Female genitourinary: Present: normal - Integumentary Integumentary: Present: clear, warm, dry - Musculoskeletal Musculoskeletal: generalized weakness - Psychiatric Psychiatric: appropriate mood/affect, intact judgment & insight - Neurologic Neurologic: CNII-XII intact, moves all extremities, no gait normal Results - Labs CBC & Chem 7: 04/29/19 Unknown 04/29/19 Unknown Labs: Abnormal lab results 04/29/19 04/29/19 04/29/19 Range/Units Unknown Unknown Unknown Hgb 9.0 L (10.1-14.3) gm/dl MCV 77 L (79-97) fl MCH 22 L (28-32) pg MCHC 29 L (30-34) % RDW 21.9 H (13.2-15.2) % PT 16.2 H (12.2-14.9) Sec. INR 1.28 H (0.87-1.13) Chloride 97.9 L (98-107) mmol/L Glucose 107 H (65-100) mg/dL AST 156 H (5-40) units/L ALT 173 H (7-56) units/L NT-Pro-B Natriuret Pep (0-900) pg/mL Albumin 3.7 L (3.9-5) g/dL 04/29/19 Range/Units Unknown Hgb (10.1-14.3) gm/dl MCV (79-97) fl MCH (28-32) pg MCHC (30-34) % RDW (13.2-15.2) % PT (12.2-14.9) Sec. INR (0.87-1.13) Chloride (98-107) mmol/L Glucose (65-100) mg/dL AST (5-40) units/L ALT (7-56) units/L NT-Pro-B Natriuret Pep 3557 H (0-900) pg/mL Albumin (3.9-5) g/dL Assessment and Plan - Patient Problems (1) Chronic respiratory failure Current Visit: Yes Status: Chronic Qualifiers: Respiratory failure complication: hypoxia Qualified Code(s): J96.11 - Chronic respiratory failure with hypoxia Plan to address problem: Supplemental oxygen, nebulizer therapy, pulse oximetry. Patient instructed to increase supplemental oxygen to 4 L/min with exertion and to continue 2 to 3 L/min continuously. Home hospice notified at discharge. Patient discharged home with home hospice. (2) Acute on chronic systolic (congestive) heart failure Current Visit: No Status: Acute Plan to address problem: End-stage CHF: Submental oxygen, supportive care, pain control, axillary therapy. Patient informed of poor prognosis patient acknowledges understanding and agreement with care plan. (3) HTN (hypertension) Current Visit: No Status: Chronic Qualifiers: Hypertension type: essential hypertension Qualified Code(s): I10 - Essential (primary) hypertension (4) Debility Current Visit: Yes Status: Acute Plan to address problem: Supportive care, ambulation as tolerated. (5) Advance care planning Current Visit: Yes Status: Acute Plan to address problem: Disease education conducted, patient is full code for now, patient acknowledges understanding and agreement with care plan. +30 minutes (6) DVT prophylaxis Current Visit: Yes Status: Acute Plan to address problem: SCD to bilateral lower extremities while in bed.
[2019-04-29 16:44] VITALS: BP 132/96
== END 2019-04-29 17:00 | disposition admitted as inpatient to this hospital (09) ==
LOC: ED 09:39
DX: I48.0 Paroxysmal atrial fibrillation (principal); I11.0 Hypertensive heart disease with heart failure; I50.9 Heart failure, unspecified; K21.9 Gastro-esophageal reflux disease without esophagitis; D64.9 Anemia, unspecified; E66.2 Morbid (severe) obesity with alveolar hypoventilation; Z68.32 Body mass index [BMI] 32.0-32.9, adult; Z98.890 Other specified postprocedural states; Z79.899 Other long term (current) drug therapy; Z86.711 Personal history of pulmonary embolism; Z79.01 Long term (current) use of anticoagulants
CPT/HCPCS: 36415; 71045; 80053; 83880; 84484; 85025; 85610; 85730; 93005; 93010; 96374; 99284; J1940

== ENCOUNTER 2019-06-25 17:35 | Emergency (ER) | payer MEDICARE ==
[2019-06-25 18:14] LABS: Hematocrit 29.9 % (30.3-42.9); Hemoglobin 8.9 gm/dl (10.1-14.3); Mean Corpuscular HGB Conc 30 % (30-34); Mean Corpuscular Volume 76 fl (79-97); Platelet Count 222 K/mm3 (140-440); Red Blood Count 3.96 M/mm3 (3.65-5.03); Red Cell Distribution Width 21.3 % (13.2-15.2)
--- NOTE | 2019-06-25 18:33 | XRay Report ---
CHEST PA AND LATERAL VIEWS INDICATION: severe SOB. COMPARISON: 04/29/2019 FINDINGS: Support devices: None. Heart: Cardiac silhouette is enlarged, unchanged. Lungs/Pleura: No acute pulmonary or pleural findings. IMPRESSION: 1. No acute findings. Signer Name: Jesus He MD Signed: 06/25/2019 6:29 PM Workstation Name: [id number]
[2019-06-25 18:38] LABS: Alanine Aminotransferase 41 units/L (7-56); Albumin 3.6 g/dL (3.9-5); BUN/Creatinine Ratio 12; Blood Urea Nitrogen 11 mg/dL (7-17); Calcium 9.2 mg/dL (8.4-10.2); Hemolysis Index 5
[2019-06-25 20:15] VITALS: BP 117/95
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
== END 2019-06-25 21:01 | disposition home or self-care (01) ==
LOC: ED 17:35
DX: I11.0 Hypertensive heart disease with heart failure (principal); I50.9 Heart failure, unspecified; K21.9 Gastro-esophageal reflux disease without esophagitis; J44.9 Chronic obstructive pulmonary disease, unspecified; Z86.2 Personal history of diseases of the blood and blood-forming organs and certain disorders involving the immune mechanism; Z98.890 Other specified postprocedural states
CPT/HCPCS: 36415; 71046; 80053; 83880; 85027